=== PATIENT | female | born 1990 | race Two or more races ===

== ENCOUNTER 2017-05-12 14:21 | Emergency (ER) | payer SELFPAY ==
[2017-05-12 14:30] VITALS: TEMP 98.4; BMI 25.7
--- NOTE | 2017-05-12 15:01 | PDOC ---
History of Present Illness - General Chief Complaint: Pain Stated Complaint: PAIN Time Seen by Provider: 05/12/17 14:32 History Source: Patient Exam Limitations: No Limitations - History of Present Illness Travel History: No Initial Comments: 05/12/17 15:01 26y F hx of kidney stones presents with LLQ pain for 5 days, pain is moderate, sems to wax and wane. Pt ontes it is much less severe than her kidney stones many years ago. Pt also enodrses some vaginal spotting for a few days. Pt notes her LMP is 2 months ago, but her period is inconsistent. Pt deines any fever/ chills, nausea/vomiting, diarrhea, melena, heamturia, dysuria, vaginal discharge , frequency, back pain, cp, sob, cough. pt took motrin with mild limprovement of her pain yesterday Pt in monogmous erlationship, Past History - Past Medical History Allergies/Adverse Reactions: Allergies Allergy/AdvReac Type Severity Reaction Status Date / Time No Known Allergies Allergy Verified 05/12/17 14:30 Home Medications: Ambulatory Orders Ibuprofen [Motrin -] 600 mg PO TID #21 tablet 05/12/17 Oxycodone HCl/Acetaminophen [Percocet 5-325 mg Tablet] 1 tab PO Q6H PRN #12 tablet MDD 4 tabs 05/12/17 COPD: No - Suicide/Smoking/Psychosocial Hx Smoking History: Never smoked Review of Systems - Review of Systems Able to Perform ROS?: Yes Comments:: 05/12/17 15:05 Constitutional - no reported Fever, Chills, HEENT: no reported vision changes, sore throat Respiratory: no reported cough, sob, hemoptysis Cardiac: no reported chest pain, palpitations, light headedness, leg swelling Abd/GI: +llq abd pain no reported nausea, vomiting, blood per rectum, melena, diarrhea : +vag spotting no reported dysuria, frequency, discharge Musculskelatal - no reported back pain, joint swelling skin - no reported bruising, erythema, rash neurological: no reported headache, numbness, focal weakness, tingling, ataxia, hematologic: no reported anemia, easy bruising, easy bleeding *Physical Exam - Vital Signs Last Vital Signs Temp Pulse Resp BP Pulse Ox 98.4 F 94 H 18 109/60 99 05/12/17 14:28 05/12/17 14:28 05/12/17 14:28 05/12/17 14:28 05/12/17 14:28 - Physical Exam Comments: 05/12/17 15:05 GENERAL: The patient is awake, alert, and fully oriented, Nontoxic - in no acute distress. HEAD: Normocephalic, atraumatic. EYES: extraocular movements intact, sclera anicteric, conjunctiva clear. ENT: Normal voice, Moist mucous membranes. NECK: Normal range of motion, supple LUNGS: Breath sounds equal, clear to auscultation bilaterally. No wheezes, no rhonchi, no rales. HEART: Regular rate and rhythm, normal S1 and S2 without murmur, rub or gallop. ABDOMEN: Soft, nontender, No guarding, no rebound. No CVA tenderness EXTREMITIES: Normal range of motion, no edema. NEUROLOGICAL: No facial assymetry, Normal speech, PSYCH: Normal mood, normal affect. SKIN: Warm, Dry, normal turgor, ED Treatment Course - LABORATORY CBC & Chemistry Diagram: 05/12/17 15:12 05/12/17 15:12 Medical Decision Making - Medical Decision Making 05/12/17 15:05 26-year-old female presenting with 5 days of intermittent left lower quadrant pain, without any other symptoms besides vaginal spotting. no f/c, urinary sx, n/v, on exam pt well appearing no focal tenderness in abdomen ddx includes diverticultis, kidney stones, ovarian pain, will obtain blood work, ua, hcg will give tylenol for pain . 05/12/17 17:00 pt declines pelvic exam, requesting female awaiting US to eval for ovarian pathology and renal us to r/o hydro will sign pt out to dr. muñiz to reassess an fu wit hpatient. *DC/Admit/Observation/Transfer Diagnosis at time of Disposition: Pelvic pain - Discharge Dispostion Disposition: HOME Condition at time of disposition: Stable - Prescriptions Prescriptions: Ibuprofen [Motrin -] 600 mg PO TID #21 tablet Oxycodone HCl/Acetaminophen [Percocet 5-325 mg Tablet] 1 tab PO Q6H PRN #12 tablet MDD 4 tabs PRN Reason: Severe Pain - Referrals - Patient Instructions Printed Discharge Instructions: DI for Pelvic Pain - Post Discharge Activity
[2017-05-12] MEDS ORDERED: ACETAMINOPHEN 325 MG TABLET (FP) PO ONE (15:04)
[2017-05-12 15:54] LABS: BASO % 0.7 % (0-2.0); EOS % 1.8 % (0-4.5); HEMATOCRIT 40.4 % (32.4-45.2); HEMOGLOBIN 13.7 GM/dL (10.7-15.3); LYMPH % 26.6 % (8-40); MCH 31.1 pg (25.7-33.7); MEAN CELL VOLUME 91.6 fl (80-96); MEAN PLT VOLUME 9.1 fl (7.5-11.1); MONO % 5.7 % (3.8-10.2); NEUT % 65.2 % (42.8-82.8); PLATELET COUNT 236 K/MM3 (134-434); RBC 4.41 M/mm3 (3.60-5.2); RDW 12.8 % (11.6-15.6); WHITE BLOOD COUNT 10.7 K/mm3 (4.0-10.0)
[2017-05-12 15:57] LABS: HCG,QUALITATIVE URINE NEGATIVE; URINE APPEARANCE CLEAR; URINE BILIRUBIN NEGATIVE (NEGATIVE); URINE BLOOD NEGATIVE (NEGATIVE); URINE COLOR STRAW; URINE GLUCOSE (UA) NEGATIVE (NEGATIVE); URINE KETONE NEGATIVE (NEGATIVE); URINE LEUK ESTERASE NEGATIVE (NEGATIVE); URINE NITRITE NEGATIVE (NEGATIVE); URINE PROTEIN NEGATIVE (NEGATIVE); URINE UROBILINOGEN NEGATIVE mg/dL (0.2-1.0)
[2017-05-12] MEDS ORDERED: ACETAMINOPHEN 325 MG TABLET (FP) ONE (16:09)
[2017-05-12 16:19] LABS: ALBUMIN 3.4 g/dl (3.4-5.0); ALK PHOS 69 U/L (45-117); ANION GAP 5 (8-16); BILIRUBIN,TOTAL 0.2 mg/dL (0.2-1.0); BLOOD UREA NITROGEN 11 mg/dL (7-18); CALCIUM 8.5 mg/dL (8.5-10.1); CHLORIDE 104 mmol/L (98-107); CO2 28 mmol/L (21-32); CREATININE 0.7 mg/dL (0.55-1.02); GLUCOSE,RANDOM 82 mg/dL (74-106); POTASSIUM 4.2 mmol/L (3.5-5.1); SGOT/AST 14 U/L (15-37); SGPT/ALT 26 U/L (12-78); SODIUM 137 mmol/L (136-145); TOT PROT 7.1 g/dl (6.4-8.2)
[2017-05-12] MEDS ORDERED: SODIUM CHLORIDE 1,000 ML IV STA (17:44)
[2017-05-12] MEDS ORDERED: IBUPROFEN 600 MG TABLET (FP) PO ONE ×2 (18:11→19:25)
--- NOTE | 2017-05-12 18:14 | PDOC ---
*Physical Exam - Vital Signs Last Vital Signs Temp Pulse Resp BP Pulse Ox 98.4 F 94 H 18 109/60 99 05/12/17 14:28 05/12/17 14:28 05/12/17 14:28 05/12/17 14:28 05/12/17 14:28 <VivekfaribaakuaModesta - Last Filed: 05/12/17 21:38> - Vital Signs Last Vital Signs Temp Pulse Resp BP Pulse Ox 98.4 F 94 H 18 109/60 99 05/12/17 14:28 05/12/17 14:28 05/12/17 14:28 05/12/17 14:28 05/12/17 14:28 <Delphine Mansfield - Last Filed: 05/12/17 21:56> ED Treatment Course - LABORATORY CBC & Chemistry Diagram: 05/12/17 15:12 05/12/17 15:12 - ADDITIONAL ORDERS Additional order review: Laboratory Results 05/12/17 05/12/17 15:12 15:12 Sodium 137 Potassium 4.2 Chloride 104 Carbon Dioxide 28 Anion Gap 5 L BUN 11 Creatinine 0.7 Creat Clearance w eGFR > 60 Random Glucose 82 Calcium 8.5 Total Bilirubin 0.2 AST 14 L ALT 26 Alkaline Phosphatase 69 Total Protein 7.1 Albumin 3.4 Urine Color Straw Urine Appearance Clear Urine pH 7.0 Ur Specific [place] 1.011 Urine Protein Negative Urine Glucose (UA) Negative Urine Ketones Negative Urine Blood Negative Urine Nitrite Negative Urine Bilirubin Negative Urine Urobilinogen Negative Ur Leukocyte Esterase Negative Urine HCG, Qual Negative 05/12/17 15:12 RBC 4.41 MCV 91.6 MCHC 34.0 RDW 12.8 MPV 9.1 Neutrophils % 65.2 Lymphocytes % 26.6 Monocytes % 5.7 Eosinophils % 1.8 Basophils % 0.7 - Medications Given in the ED: ED Medications Discontinued Medications Generic Name Dose Route Start Last Admin Trade Name Freq PRN Reason Stop Dose Admin Acetaminophen 650 mg 05/12/17 15:04 05/12/17 16:00 Tylenol - PO 05/12/17 15:05 650 mg ONCE ONE Administration Sodium Chloride 1,000 mls @ 1,000 mls/hr 05/12/17 17:44 05/12/17 19:55 Normal Saline - IV 05/12/17 18:43 Not Given ASDIR STA Ibuprofen 600 mg 05/12/17 18:11 05/12/17 19:26 Motrin - PO 05/12/17 18:12 600 mg ONCE ONE Administration <Modesta De La O - Last Filed: 05/12/17 21:38> - LABORATORY CBC & Chemistry Diagram: 05/12/17 15:12 05/12/17 15:12 - ADDITIONAL ORDERS Additional order review: Laboratory Results 05/12/17 05/12/17 15:12 15:12 Sodium 137 Potassium 4.2 Chloride 104 Carbon Dioxide 28 Anion Gap 5 L BUN 11 Creatinine 0.7 Creat Clearance w eGFR > 60 Random Glucose 82 Calcium 8.5 Total Bilirubin 0.2 AST 14 L ALT 26 Alkaline Phosphatase 69 Total Protein 7.1 Albumin 3.4 Urine Color Straw Urine Appearance Clear Urine pH 7.0 Ur Specific [place] 1.011 Urine Protein Negative Urine Glucose (UA) Negative Urine Ketones Negative Urine Blood Negative Urine Nitrite Negative Urine Bilirubin Negative Urine Urobilinogen Negative Ur Leukocyte Esterase Negative Urine HCG, Qual Negative 05/12/17 15:12 RBC 4.41 MCV 91.6 MCHC 34.0 RDW 12.8 MPV 9.1 Neutrophils % 65.2 Lymphocytes % 26.6 Monocytes % 5.7 Eosinophils % 1.8 Basophils % 0.7 - RADIOLOGY Radiology Studies Ordered: Category Date Time Status KIDNEY / RENAL US [US] Stat Ultrasound 05/12/17 17:44 Ordered - Medications Given in the ED: ED Medications Discontinued Medications Generic Name Dose Route Start Last Admin Trade Name Freq PRN Reason Stop Dose Admin Acetaminophen 650 mg 05/12/17 15:04 05/12/17 16:00 Tylenol - PO 05/12/17 15:05 650 mg ONCE ONE Administration <Delphine Mansfield - Last Filed: 05/12/17 21:56> Medical Decision Making - Medical Decision Making 05/12/17 21:38 EXAM: COMPLETE RENAL ULTRASOUND FINDINGS: KIDNEYS: There is normal corticomedullary differentiation bilaterally. The right kidney measures 10.2 x 3.5 x 4.9 cm and the left kidney measures 10.9 x 5.6 x 4.7 cm. There is no right kidney hydronephrosis or nephrolithiasis. There is mild/moderate left hydronephrosis. No shadowing calculi. Solid renal mass: No BLADDER: Not evaluated. Round hyperdense mass right lobe liver a vascular measure as 2.6 x 3.0 x 2.9 cm , this is an indeterminate finding. IMPRESSION: Mild/moderate left hydronephrosis. No shadowing renal calculi. Hyperechoic mass in the liver incompletely characterized, possible hemangioma which may be further evaluated with triple phase contrast enhanced CT. Read by: María Elena Goodwin MD EXAM: PELVIS ULTRASOUND AND OVARIAN DUPLEX COMPLETE WITH TRANSABDOMINAL TECHNIQUE FINDINGS: UTERUS: The uterus measures 8.3 x 3.8 x 5.2 cm. No uterine mass is seen. ENDOMETRIUM: The endometrial echocomplex appears normal, measuring 0.63 cm. OVARIES: Both ovaries are identified. The right ovary measures 3.1 x 1.8 x 2.9 cm and the left ovary measures 2.7 x 1.3 x 2.0 cm. No solid ovarian mass is seen. No significant cyst, several tiny follicles. Arterial and venous duplex doppler flow is documented to both ovaries. PELVIS: There is small volume anechoic free fluid noted in the cul de sac. No adnexal or pelvic mass is seen. IMPRESSION: No sonographic findings to suggest ovarian torsion. Endometrial thickness is within normal limits for a premenopausal patient. Read by: María Elena Goodwin MD <Modesta De La O - Last Filed: 05/12/17 21:38> - Medical Decision Making 05/12/17 18:12 Pt endorsed to me by Dr. Kirk at 5 pm shift change. She requested female practitioner for pelvic exam. +L adnexal tenderness. Suspect ovarian cyst. Await ultrasound results. 05/12/17 21:49 Discussion with patient at bedside. Mild hydro on L but no stones. On pelvic exam she had no external changes, but was noted to have R adnexal pain (not left which is where she complains of pain). She had mild physiologic discharge but no cervical changes, no CMT, no purulent discharge. She states she has not had any recent new partners. She does not wish to be treated with empiric abx at present. She agrees to urine test for GC/Chlam. <Delphine Mansfield - Last Filed: 05/12/17 21:56> *DC/Admit/Observation/Transfer - Attestations Scribe Attestion: 05/12/17 21:40 Documentation prepared by Modesta De La O, acting as registered medical assistant for Delphine Mansfield MD. <Modesta De La O - Last Filed: 05/12/17 21:38> - Discharge Dispostion Admit: No <Delphine Mansfield - Last Filed: 05/12/17 21:56> Diagnosis at time of Disposition: Pelvic pain - Discharge Dispostion Disposition: HOME Condition at time of disposition: Stable - Prescriptions Prescriptions: Ibuprofen [Motrin -] 600 mg PO TID #21 tablet Oxycodone HCl/Acetaminophen [Percocet 5-325 mg Tablet] 1 tab PO Q6H PRN #12 tablet MDD 4 tabs PRN Reason: Severe Pain - Patient Instructions Printed Discharge Instructions: DI for Pelvic Pain
[2017-05-12 22:19] VITALS: BP 127/74; PULSE 69
== END 2017-05-12 22:00 | disposition home or self-care (01) ==
LOC: JER 14:21
DX: R10.2 Pelvic and perineal pain (principal)
CPT/HCPCS: 36415; 76775-TC; 76856-TC; 80053; 81003; 84703; 85025; 99283-25

== ENCOUNTER 2017-05-27 00:37 | Inpatient (IN) | payer OTHER ==
--- NOTE | 2017-05-27 01:21 | PDOC ---
History of Present Illness - General Chief Complaint: Pain, Acute Stated Complaint: PAIN, FEVER Time Seen by Provider: 05/27/17 00:57 History Source: Patient - History of Present Illness Initial Comments: 05/27/17 01:33 26 y.o. female with a PMH of nephrolithiasis (remote) presents to our ED today c /o 2 day of subjective fever, NBNB emesis, and L flank and abdominal pain. Patient states the pain sharp, constant, 10/10 and radiates from her L flank to her LLQ. Patient denies any associated diarrhea/constipation, dysuria/hematuria , vaginal bleed. NKDA Surgical: denies Social: denies nicotine, denies alcohol, denies recreational drugs Past History - Past Medical History Allergies/Adverse Reactions: Allergies Allergy/AdvReac Type Severity Reaction Status Date / Time No Known Allergies Allergy Verified 05/27/17 01:07 Home Medications: Ambulatory Orders Ibuprofen [Motrin -] 600 mg PO TID #21 tablet 05/12/17 Oxycodone HCl/Acetaminophen [Percocet 5-325 mg Tablet] 1 tab PO Q6H PRN #12 tablet MDD 4 tabs 05/12/17 COPD: No - Suicide/Smoking/Psychosocial Hx Smoking History: Never smoked Have you smoked in the past 12 months: No Information on smoking cessation initiated: No Hx Alcohol Use: No Drug/Substance Use Hx: No Review of Systems - Review of Systems Constitutional: Yes: Fever, Loss of Appetite. No: Chills HEENTM: No: Blurred Vision, Double Vision Respiratory: No: Shortness of Breath, Stridor, Wheezing, Hemoptysis Cardiac (ROS): No: Chest Pain, Lightheadedness, Palpitations, Syncope ABD/GI: No: Constipated, Diarrhea, Nausea, Vomiting : No: Burning, Dysuria *Physical Exam - Vital Signs Last Vital Signs Temp Pulse Resp BP Pulse Ox 98.8 F 67 16 96/58 98 05/27/17 01:05 05/27/17 01:05 05/27/17 01:05 05/27/17 01:05 05/27/17 01:05 - Physical Exam General Appearance: Yes: Nourished, Obese HEENT: positive: EOMI, DAVIS. negative: Pharyngeal Erythema, Tonsillar Exudate, Tonsillar Erythema Neck: positive: Trachea midline, Supple Respiratory/Chest: positive: Lungs Clear. negative: Crackles, Rales, Rhonchi, Stridor, Wheezing Cardiovascular: positive: S1, S2 Gastrointestinal/Abdominal: positive: Normal Bowel Sounds, Soft, Tenderness ( LLQ tenderness) Musculoskeletal: positive: CVA Tenderness (L). negative: CVA Tenderness (R) Extremity: positive: Normal Capillary Refill, Normal Inspection Integumentary: positive: Normal Color, Dry, Warm ED Treatment Course - LABORATORY CBC & Chemistry Diagram: 06/01/17 06:00 06/01/17 06:00 Medical Decision Making - Medical Decision Making 05/27/17 01:57 26 y.o. female presents with L flank pain that radiates to LLQ. Of note patient was evaluated at our facility on 05/14 at which time UA negative, no CMT tenderness on pelvic exam. DDx includes nephrolithiasis vs. UTI vs. adenexal pathology (less likely). Spiral CT, CBC, CMP, IV NS, pain control with Morphine. 05/27/17 04:16 WBC 44, UA significant for leukocyte esterase (+), 3421 WBC --> suspect complicated UTI/pyelonephritis. Will start patient on Pip/Tazo, awaiting CT results. Lactate pending. Likely disposition is admission. On repeat exam, patient notes she has a h/o hospitalization at [facility] for complicated UTI. 05/27/17 04:24 Case d/w Dr. Quispe - will admit to inpatient medicine service. POC discussed with patient. Will continue to monitor while in ED. 05/27/17 06:47 Lactic Acid 2.8 --> 1 L IV NS w/repeat Lactic Acid @ 0900. *DC/Admit/Observation/Transfer Diagnosis at time of Disposition: complicated uti - Discharge Dispostion Admit: Yes - Referrals - Patient Instructions - Post Discharge Activity
[2017-05-27] MEDS ORDERED: SODIUM CHLORIDE 0.9% 500 ML INFUS.BAG IV ONE ×3 (01:27→06:44)
--- NOTE | 2017-05-27 01:29 | PDOC ---
Attending Attestation - Resident Resident Name: Jenna Looney - ED Attending Attestation I have performed the following: I have examined & evaluated the patient, The case was reviewed & discussed with the resident, I agree w/resident's findings & plan - HPI HPI: 05/27/17 04:29 Pt comes with left flank pain and fever and chills. She states that she had sepsis secondary to a kidney infection 10 yrs ago at [facility]. SHe mentions that it was a difficult infection to treat. Pt has decreased appetite x 2 days and she is dehydrated. Pt feels febrile. Pt has no abd pain. Pt has a hx of kidney stones. SHe states that she is sexually active and that though she has no vaginal discharge, she can have an STD. We will send off a culture. CT spiral of abd pelvis is done and results are pending. - Physicial Exam PE: 05/27/17 04:39 Agree with resident exam. Pt has left flank pain. - Medical Decision Making 05/27/17 04:38 Referring Physician: ADAMARIS CRUZ Patient Name: BEN BLAKE THIS IS A PRELIMINARY REPORT FROM [facility] DATE OF SERVICE: 2017-05-27 03:54:15 IMAGES: [id number] EXAM: CT abdomen and pelvis without contrast HISTORY: Left flank pain COMPARISON: None. FINDINGS: Lung bases are clear. The visualized cardiac chambers are normal size and configuration. There is mild left hydronephrosis and perinephric inflammation secondary to a 6 x 5 mid to distal left ureteral stone. No additional stones identified. Normal unenhanced liver, gallbladder, pancreas, spleen, adrenal glands and right kidney. The stomach and abdominal small and large bowel are normal. There is no aortic aneurysm. There is no significant retroperitoneal lymphadenopathy. The pelvic small and large bowel are normal. The appendix is normal. The uterus and adnexal structures are normal. Urinary bladder is unremarkable. There is no pelvic free fluid. No discrete pelvic lymphadenopathy is identified. IMPRESSION: Mild to left hydronephrosis and perinephric inflammation secondary to a 6 x 5 mid to distal left ureteral stone. THIS DOCUMENT HAS BEEN ELECTRONICALLY SIGNED 05/27/17 21:00 Pt admitted for large obstructing stone.
[2017-05-27 03:15] LABS: ALBUMIN 3.3 g/dl (3.4-5.0); ALK PHOS 82 U/L (45-117); ANION GAP 12 (8-16); BILIRUBIN,TOTAL 0.5 mg/dL (0.2-1.0); BLOOD UREA NITROGEN 15 mg/dL (7-18); CALCIUM 8.6 mg/dL (8.5-10.1); CHLORIDE 99 mmol/L (98-107); CO2 24 mmol/L (21-32); CREATININE 1.4 mg/dL (0.55-1.02); GLUCOSE,RANDOM 127 mg/dL (74-106); POTASSIUM 3.9 mmol/L (3.5-5.1); SGOT/AST 22 U/L (15-37); SGPT/ALT 31 U/L (12-78); SODIUM 135 mmol/L (136-145); TOT PROT 7.1 g/dl (6.4-8.2)
[2017-05-27 03:26] LABS: URINE APPEARANCE TURBID; URINE BILIRUBIN NEGATIVE (NEGATIVE); URINE BLOOD 2+ (NEGATIVE); URINE COLOR YELLOW; URINE GLUCOSE (UA) NEGATIVE (NEGATIVE); URINE KETONE NEGATIVE (NEGATIVE); URINE NITRITE NEGATIVE (NEGATIVE); URINE UROBILINOGEN NEGATIVE mg/dL (0.2-1.0)
[2017-05-27 03:36] LABS: URINE LEUK ESTERASE 3+ (NEGATIVE); URINE PROTEIN 2+ (NEGATIVE)
[2017-05-27 03:40] LABS: EPI CELLS FEW /HPF (FEW); URINE MUCUS RARE; YEAST MANY
[2017-05-27 03:48] LABS: HEMATOCRIT 38.5 % (32.4-45.2); HEMOGLOBIN 12.8 GM/dL (10.7-15.3); MCH 30.7 pg (25.7-33.7); MCHC 33.2 g/dl (32.0-36.0); MEAN CELL VOLUME 92.4 fl (80-96); MEAN PLT VOLUME 9.8 fl (7.5-11.1); PLATELET COUNT 233 K/MM3 (134-434); RBC 4.17 M/mm3 (3.60-5.2); RDW 13.4 % (11.6-15.6)
[2017-05-27 04:01] LABS: WHITE BLOOD COUNT 44.5 K/mm3 (4.0-10.0)
[2017-05-27 04:04] LABS: HCG,QUALITATIVE URINE NEGATIVE
[2017-05-27] MEDS ORDERED: PIPERACIL/TAZOB 3.375 GM 3.375 GM/50 ML PREMIX IVPB ONE (04:04)
[2017-05-27] MEDS ORDERED: morphine CARPU-JECT 4 MG/1 ML DISP.SYRIN IVPUSH ONE (04:10)
[2017-05-27] MEDS ORDERED: ACETAMINOPHEN 1000 MG/100 ML VIAL (NON FORMULARY) IVPB ONE (04:20)
--- NOTE | 2017-05-27 04:48 | HP ---
CHIEF COMPLAINT: PCP: HISTORY OF PRESENT ILLNESS: ER course was notable for: (1) (2) (3) Recent Travel: PAST MEDICAL HISTORY: PAST SURGICAL HISTORY: Social History: Smoking: Alcohol: Drugs: Family History: Allergies No Known Allergies Allergy (Verified 05/27/17 01:07) HOME MEDICATIONS: Home Medications Medication Instructions Recorded Ibuprofen [Motrin -] 600 mg PO TID #21 tablet 05/12/17 Oxycodone HCl/Acetaminophen 1 tab PO Q6H PRN #12 tablet MDD 4 05/12/17 [Percocet 5-325 mg Tablet] tabs REVIEW OF SYSTEMS CONSTITUTIONAL: Absent: fever, chills, diaphoresis, generalized weakness, malaise, loss of appetite, weight change HEENT: Absent: rhinorrhea, nasal congestion, throat pain, throat swelling, difficulty swallowing, mouth swelling, ear pain, eye pain, visual changes CARDIOVASCULAR: Absent: chest pain, syncope, palpitations, irregular heart rate, lightheadedness , peripheral edema RESPIRATORY: Absent: cough, shortness of breath, dyspnea with exertion, orthopnea, wheezing, stridor, hemoptysis GASTROINTESTINAL: Absent: abdominal pain, abdominal distension, nausea, vomiting, diarrhea, constipation, melena, hematochezia GENITOURINARY: Absent: dysuria, frequency, urgency, hesitancy, hematuria, flank pain, genital pain MUSCULOSKELETAL: Absent: myalgia, arthralgia, joint swelling, back pain, neck pain SKIN: Absent: rash, itching, pallor HEMATOLOGIC/IMMUNOLOGIC: Absent: easy bleeding, easy bruising, lymphadenopathy, frequent infections ENDOCRINE: Absent: unexplained weight gain, unexplained weight loss, heat intolerance, cold intolerance NEUROLOGIC: Absent: headache, focal weakness or paresthesias, dizziness, unsteady gait, seizure, mental status changes, bladder or bowel incontinence PSYCHIATRIC: Absent: anxiety, depression, suicidal or homicidal ideation, hallucinations. PHYSICAL EXAMINATION Vital Signs - 24 hr 05/27/17 01:05 Temperature 98.8 F Pulse Rate 67 Respiratory 16 Rate Blood Pressure 96/58 O2 Sat by Pulse 98 Oximetry (%) GENERAL: Awake, alert, and fully oriented, in no acute distress. HEAD: Normal with no signs of trauma. EYES: Pupils equal, round and reactive to light, extraocular movements intact, sclera anicteric, conjunctiva clear. No lid lag. EARS, NOSE, THROAT: Ears normal, nares patent, oropharynx clear without exudates. Moist mucous membranes. NECK: Normal range of motion, supple without lymphadenopathy, JVD, or masses. LUNGS: Breath sounds equal, clear to auscultation bilaterally. No wheezes, and no crackles. No accessory muscle use. HEART: Regular rate and rhythm, normal S1 and S2 without murmur, rub or gallop. ABDOMEN: Soft, nontender, not distended, normoactive bowel sounds, no guarding, no rebound, no masses. No hepatomegaly or splenomegaly. MUSCULOSKELETAL: Normal range of motion at all joints. No bony deformities or tenderness. No CVA tenderness. UPPER EXTREMITIES: 2+ pulses, warm, well-perfused. No cyanosis. No clubbing. No peripheral edema. LOWER EXTREMITIES: 2+ pulses, warm, well-perfused. No calf tenderness. No peripheral edema. NEUROLOGICAL: Cranial nerves II-XII intact. Normal speech. Normal gait. PSYCHIATRIC: Cooperative. Good eye contact. Appropriate mood and affect. SKIN: Warm, dry, normal turgor, no rashes or lesions noted, normal capillary refill. Laboratory Results - last 24 hr 05/27/17 05/27/17 05/27/17 01:39 01:39 01:39 WBC 44.5 H* D RBC 4.17 Hgb 12.8 Hct 38.5 MCV 92.4 MCH 30.7 MCHC 33.2 RDW 13.4 Plt Count 233 MPV 9.8 Neutrophils % No Result Required. Lymphocytes % No Result Required. Sodium 135 L Potassium 3.9 Chloride 99 Carbon Dioxide 24 Anion Gap 12 BUN 15 Creatinine 1.4 H Creat Clearance w eGFR 45.82 Random Glucose 127 H Calcium 8.6 Total Bilirubin 0.5 D AST 22 ALT 31 Alkaline Phosphatase 82 Total Protein 7.1 Albumin 3.3 L Serum , Qual Negative Urine Color Urine Appearance Urine pH Ur Specific [place] Urine Protein Urine Glucose (UA) Urine Ketones Urine Blood Urine Nitrite Urine Bilirubin Urine Urobilinogen Ur Leukocyte Esterase Urine WBC (Auto) Urine RBC (Auto) Ur Epithelial Cells Urine Mucus Urine Yeast Urine HCG, Qual 05/27/17 03:09 WBC RBC Hgb Hct MCV MCH MCHC RDW Plt Count MPV Neutrophils % Lymphocytes % Sodium Potassium Chloride Carbon Dioxide Anion Gap BUN Creatinine Creat Clearance w eGFR Random Glucose Calcium Total Bilirubin AST ALT Alkaline Phosphatase Total Protein Albumin Serum , Qual Urine Color Yellow Urine Appearance Turbid Urine pH 5.0 D Ur Specific [place] 1.025 Urine Protein 2+ H Urine Glucose (UA) Negative Urine Ketones Negative Urine Blood 2+ H Urine Nitrite Negative Urine Bilirubin Negative Urine Urobilinogen Negative Ur Leukocyte Esterase 3+ H Urine WBC (Auto) 3421 Urine RBC (Auto) 115 Ur Epithelial Cells Few Urine Mucus Rare Urine Yeast Many Urine HCG, Qual Negative ASSESSMENT/PLAN: Hospitalist Screening - Colonoscopy Questionnaire Colonoscopy Questionnaire: Colonoscopy Questionnaire
[2017-05-27] MEDS ORDERED: PIPERACILLIN/TAZOB 3.375 GM 3.375 GM/50 ML BAG IVPB ONE (04:54)
[2017-05-27] MEDS ORDERED: ACETAMINOPHEN INJECTION 100 ML IVPB ONE (04:54)
[2017-05-27] MEDS ORDERED: morphine SULFATE 4 MG/ML VIAL ONE (04:54)
[2017-05-27] MEDS: PIPERACILLIN/TAZOB 3.375 GM/50 ML PRE-DOCKED IVPB ONE ×2 (05:32→05:36)
--- NOTE | 2017-05-27 05:32 | PN ---
Teaching Attending Note Name of Resident: Kaveh Smart ATTENDING PHYSICIAN STATEMENT I saw and evaluated the patient. Chart, data, imaging reviewed. I reviewed the resident's note and discussed the case with the resident. I agree with the resident's findings and plan as documented. SUBJECTIVE: 26yo [place] woman with Hx of nephrolithisis, with episode of sepsis 2/2 pyelonephritis reportedly treated 3 years ago at [facility]. Now c/o days of dysuria, left flank pain, nausea and vomiting. Pain is severe, sharp in nature and radiates from left flank to groin. Patient with grossly +UA, treated with Zosyn in ER. OBJECTIVE: Last Vital Signs Temp Pulse Resp BP Pulse Ox 98.7 F 70 18 106/78 99 05/27/17 06:07 05/27/17 06:07 05/27/17 06:07 05/27/17 06:07 05/27/17 06:07 general- appears uncomfortable, aaox3, no respiratory distress HEENT- at, no scleral pallor Neck -supple CV- s1+s2+ RRR CHest- cta b/l, left sided CVA tenderness ABdomen- soft, nt, no masses appreciated Skin- no rashes appreciated Abnormal Lab Results 05/27/17 05/27/17 05/27/17 01:39 01:39 03:09 WBC 44.5 H* D Lymphocytes % (Manual) 5.0 L Monocytes % (Manual) 3 L Sodium 135 L Creatinine 1.4 H Random Glucose 127 H Lactic Acid Albumin 3.3 L Urine Protein 2+ H Urine Blood 2+ H Ur Leukocyte Esterase 3+ H 05/27/17 05:23 WBC Lymphocytes % (Manual) Monocytes % (Manual) Sodium Creatinine Random Glucose Lactic Acid 2.8 H* Albumin Urine Protein Urine Blood Ur Leukocyte Esterase Night hawk read- CT of abdomen /pelvis- mild left sided hydronephrosis, perinephric inflammation , 6 x5 ... mm? stone in mid to distal left ureter ASSESSMENT AND PLAN: #Complicated UTI- Left sided pyelonephritis with mild lactic acidosis and high leukocytosis, complicated by left ureter stone. Patient otherwise hemodynamically stable, not tachycardic or febrile. S/p Zosyn in ER. -blood cultures x2 -urine culture -urology evaluation to stone removal -ID consult -Rocephin 2g IV q24hrs -morphine 2mg IV q4hrs PRN -f/u official abdomen CT read -zofran PRN for nausea/vomiting #ERIN- likely postrenal in nature 2/2 to renal stone -urine lytes -urine cr -IV fluid hydration -avoid nephrotoxic medications -i/o -daily weights Heparin for dvt ppx
[2017-05-27] MEDS ORDERED: morphine CARPU-JECT 4 MG/1 ML DISP.SYRIN IVPUSH PRN (06:46)
[2017-05-27] MEDS ORDERED: ONDANSETRON 4 MG/2 ML VIAL IVPUSH ONE (06:49)
[2017-05-27] MEDS ORDERED: ONDANSETRON 4 MG TABLET PO PRN ×2 (06:57→19:12)
--- NOTE | 2017-05-27 07:03 | HP ---
CHIEF COMPLAINT:left flank pain, fever , PCP: HISTORY OF PRESENT ILLNESS: 26 year old female with pmh of kidney stone and multiple urinary infection presented with one day history of fever, chills, N/V and sever left flank pain. The left flank pain 9/10 local , radiating to the left groin.she reports sever vaginal pain when she pass urine , and maroon color of urine. she vomited 6 times yesterday and 2 times today yellow liquids with some blood in it. she has cholic pain once a month in the last 3 years. she mention history of bacteremia due urinary infection and was treated with IV antibiotics . pt reports she was her at the hospital last week for ovary pain (per pt )and work up come back normal and dc home pt reports headache , pulsating , 9/10 , frontal, associated with the flank pain. she denies any chest pain , sob, but reports hear racing, she Davis any diarrhea or constipation , no joint pain or leg swelling. her son has common cold last week and no recent travel. pt is sexually active but denies any vaginal discharges or recent STDs. ER course was notable for: (1)CBC, CMP , blood cx , urine cx (2)LA 2.1 (3)zosyn , morphine, zofran Recent Travel:denies PAST MEDICAL HISTORY: nephrolithisis, bacteremia PAST SURGICAL HISTORY: Social History: Smoking:hooka 1-2 times a week Alcohol:socially Drugs: denies Family History: kidney stone in her father side. mother with HTN. Allergies No Known Allergies Allergy (Verified 05/27/17 01:07) HOME MEDICATIONS: Home Medications Medication Instructions Recorded Ibuprofen [Motrin -] 600 mg PO TID #21 tablet 05/12/17 Oxycodone HCl/Acetaminophen 1 tab PO Q6H PRN #12 tablet MDD 4 05/12/17 [Percocet 5-325 mg Tablet] tabs REVIEW OF SYSTEMS CONSTITUTIONAL: Absent: fever, chills, diaphoresis, generalized weakness, malaise, loss of appetite, weight change HEENT: Absent: rhinorrhea, nasal congestion, throat pain, throat swelling, difficulty swallowing, mouth swelling, ear pain, eye pain, visual changes CARDIOVASCULAR: Absent: chest pain, syncope, palpitations, irregular heart rate, lightheadedness , peripheral edema RESPIRATORY: Absent: cough, shortness of breath, dyspnea with exertion, orthopnea, wheezing, stridor, hemoptysis GASTROINTESTINAL: Absent: abdominal pain, abdominal distension, nausea, vomiting, diarrhea, constipation, melena, hematochezia GENITOURINARY: Absent: dysuria, frequency, urgency, hesitancy, hematuria, flank pain, genital pain MUSCULOSKELETAL: Absent: myalgia, arthralgia, joint swelling, back pain, neck pain SKIN: Absent: rash, itching, pallor HEMATOLOGIC/IMMUNOLOGIC: Absent: easy bleeding, easy bruising, lymphadenopathy, frequent infections ENDOCRINE: Absent: unexplained weight gain, unexplained weight loss, heat intolerance, cold intolerance NEUROLOGIC: Absent: headache, focal weakness or paresthesias, dizziness, unsteady gait, seizure, mental status changes, bladder or bowel incontinence PSYCHIATRIC: Absent: anxiety, depression, suicidal or homicidal ideation, hallucinations. PHYSICAL EXAMINATION Vital Signs - 24 hr 05/27/17 05/27/17 01:05 06:07 Temperature 98.8 F 98.7 F Pulse Rate 67 Pulse Rate [ 70 Apical] Respiratory 16 18 Rate Blood Pressure 96/58 Blood Pressure 106/78 [Left Arm] O2 Sat by Pulse 98 99 Oximetry (%) GENERAL: Awake, alert, and fully oriented, in mild distress. HEAD: NC/At . EYES: EOMI, PEERLA, sclera anicteric, conjunctiva clear. EARS, NOSE, THROAT: Ears normal, nares patent, oropharynx clear without exudates. Moist mucous membranes. NECK: Normal range of motion, supple without lymphadenopathy LUNGS: Breath sounds equal, clear to auscultation bilaterally. No wheezes, and no crackles. No accessory muscle use. HEART: RRR,, normal S1 and S2 without murmur, rub or gallop. ABDOMEN: Soft, LLQ tenderness, not distended, normoactive bowel sounds, no guarding, , left CVA tenderness, malone positive MUSCULOSKELETAL: Normal range of motion at all joints. No bony deformities or tenderness. UPPER EXTREMITIES: 2+ pulses, warm, well-perfused. No cyanosis. No clubbing. No peripheral edema. LOWER EXTREMITIES: 2+ pulses, warm, well-perfused. No calf tenderness. No peripheral edema. NEUROLOGICAL: no focal deficit , Normal speech. Normal gait. PSYCHIATRIC: Cooperative. Good eye contact. Appropriate mood and affect. SKIN: Warm, dry, normal turgor, Laboratory Results - last 24 hr 05/27/17 05/27/17 05/27/17 01:39 01:39 01:39 WBC 44.5 H* D RBC 4.17 Hgb 12.8 Hct 38.5 MCV 92.4 MCH 30.7 MCHC 33.2 RDW 13.4 Plt Count 233 MPV 9.8 Total Counted 100 Neutrophils % No Result Required. Neutrophils % (Manual) 64.0 Band Neutrophils % 28.0 Lymphocytes % No Result Required. Lymphocytes % (Manual) 5.0 L Monocytes % (Manual) 3 L Sodium 135 L Potassium 3.9 Chloride 99 Carbon Dioxide 24 Anion Gap 12 BUN 15 Creatinine 1.4 H Creat Clearance w eGFR 45.82 Random Glucose 127 H Lactic Acid Calcium 8.6 Total Bilirubin 0.5 D AST 22 ALT 31 Alkaline Phosphatase 82 Total Protein 7.1 Albumin 3.3 L Serum , Qual Negative Urine Color Urine Appearance Urine pH Ur Specific [place] Urine Protein Urine Glucose (UA) Urine Ketones Urine Blood Urine Nitrite Urine Bilirubin Urine Urobilinogen Ur Leukocyte Esterase Urine WBC (Auto) Urine RBC (Auto) Ur Epithelial Cells Urine Mucus Urine Yeast Urine HCG, Qual 05/27/17 05/27/17 03:09 05:23 WBC RBC Hgb Hct MCV MCH MCHC RDW Plt Count MPV Total Counted Neutrophils % Neutrophils % (Manual) Band Neutrophils % Lymphocytes % Lymphocytes % (Manual) Monocytes % (Manual) Sodium Potassium Chloride Carbon Dioxide Anion Gap BUN Creatinine Creat Clearance w eGFR Random Glucose Lactic Acid 2.8 H* Calcium Total Bilirubin AST ALT Alkaline Phosphatase Total Protein Albumin Serum , Qual Urine Color Yellow Urine Appearance Turbid Urine pH 5.0 D Ur Specific [place] 1.025 Urine Protein 2+ H Urine Glucose (UA) Negative Urine Ketones Negative Urine Blood 2+ H Urine Nitrite Negative Urine Bilirubin Negative Urine Urobilinogen Negative Ur Leukocyte Esterase 3+ H Urine WBC (Auto) 3421 Urine RBC (Auto) 115 Ur Epithelial Cells Few Urine Mucus Rare Urine Yeast Many Urine HCG, Qual Negative CBC, BMP 05/27/17 01:39 05/27/17 01:39 ASSESSMENT/PLAN: 26 year old female with pmh of nephrolithiais and multiple urinary infection presented with one day history of fever, chills, N/V and sever left flank pain was admitted for peylonephritis due to uretral stone. # pyelonehritis due to left urethral nephrolithisis * one day of fever, N/V, left flank pain radiating to the left groin * wbc 44.5, LA 2.8 , with source of infection but no tachycardia no tachypnia no hypotension. * family h/o kidney stone * CT with urethral stone 6 mm with left hydronephrosis f/u official read * Blood cx x 2 and urine cx , genital cx * abx zosyn in ED continue with ceftriaxone 2 gm q 24 hour , ID consult * IV fluids 150 CC/hr * zofran 4 mg po q8hr for N/V * pain meds Morphine 2 gm iv q 4hr for pain > 4 * Urology consult Dr. Phelps for nephrolethiasis possible letherotripsy vs stone removal * trend LA , repeat CBC, bmp , monitor vitals , * NPO for now for possible procedure * INR * F/U klamedia N.gonnorrea result # ERIN likely due to post renal obstruction * BUN/CR 15/1.4 monitor * IV fluids * avoid nephrotoxic agents # FEN * 150 CC /hr NS * E: monitor * N: NPO for now # Proph * dvts: low risk , early ambulation ,SCDS both legs * GI: no need for now # Dispo * admit to med surg . Visit type - Emergency Visit Emergency Visit: Yes ED Registration Date: 05/27/17 Care time: The patient presented to the Emergency Department on the above date and was hospitalized for further evaluation of their emergent condition. - New Patient This patient is new to me today: Yes Date on this admission: 05/27/17 - Critical Care Critical Care patient: No Hospitalist Screening - Colonoscopy Questionnaire Colonoscopy Questionnaire: Colonoscopy Questionnaire - Patient: 50 - 75 years old and never had a screening colonoscopy: No History of colon or rectal polyps, or CA: No History of IBD, Crohn's disease or UC: No History of abdominal radiation therapy as a child: No - Relative: 1 with colon or rectal CA, or polyps at age 60 or younger: No Colon or rectal CA diagnosed at age 45 or younger: No Multiple relatives with colon or rectal CA: No - Outcome: Screening Result: Negative Screen
[2017-05-27] MEDS ORDERED: SODIUM CHLORIDE 1,000 ML IV SCH (07:15)
--- NOTE | 2017-05-27 07:52 | PN ---
Progress Note (short form) - Note Progress Note: Subjective:pain in L flank. has no N//V , feels weak and tired. Objective: Vital Signs: Last Vital Signs Temp Pulse Resp BP Pulse Ox 98.7 F 70 18 106/78 99 05/27/17 06:07 05/27/17 06:07 05/27/17 06:07 05/27/17 06:07 05/27/17 06:07 Laboratory Results - last 24 hr 05/27/17 05/27/17 05/27/17 01:39 01:39 01:39 WBC 44.5 H* D RBC 4.17 Hgb 12.8 Hct 38.5 MCV 92.4 MCH 30.7 MCHC 33.2 RDW 13.4 Plt Count 233 MPV 9.8 Total Counted 100 Neutrophils % No Result Required. Neutrophils % (Manual) 64.0 Band Neutrophils % 28.0 Lymphocytes % No Result Required. Lymphocytes % (Manual) 5.0 L Monocytes % (Manual) 3 L Sodium 135 L Potassium 3.9 Chloride 99 Carbon Dioxide 24 Anion Gap 12 BUN 15 Creatinine 1.4 H Creat Clearance w eGFR 45.82 Random Glucose 127 H Lactic Acid Calcium 8.6 Total Bilirubin 0.5 D AST 22 ALT 31 Alkaline Phosphatase 82 Total Protein 7.1 Albumin 3.3 L Serum , Qual Negative Urine Color Urine Appearance Urine pH Ur Specific [place] Urine Protein Urine Glucose (UA) Urine Ketones Urine Blood Urine Nitrite Urine Bilirubin Urine Urobilinogen Ur Leukocyte Esterase Urine WBC (Auto) Urine RBC (Auto) Ur Epithelial Cells Urine Mucus Urine Yeast Urine HCG, Qual 05/27/17 05/27/17 03:09 05:23 WBC RBC Hgb Hct MCV MCH MCHC RDW Plt Count MPV Total Counted Neutrophils % Neutrophils % (Manual) Band Neutrophils % Lymphocytes % Lymphocytes % (Manual) Monocytes % (Manual) Sodium Potassium Chloride Carbon Dioxide Anion Gap BUN Creatinine Creat Clearance w eGFR Random Glucose Lactic Acid 2.8 H* Calcium Total Bilirubin AST ALT Alkaline Phosphatase Total Protein Albumin Serum , Qual Urine Color Yellow Urine Appearance Turbid Urine pH 5.0 D Ur Specific [place] 1.025 Urine Protein 2+ H Urine Glucose (UA) Negative Urine Ketones Negative Urine Blood 2+ H Urine Nitrite Negative Urine Bilirubin Negative Urine Urobilinogen Negative Ur Leukocyte Esterase 3+ H Urine WBC (Auto) 3421 Urine RBC (Auto) 115 Ur Epithelial Cells Few Urine Mucus Rare Urine Yeast Many Urine HCG, Qual Negative Physical Exam: NAd, AAox3. HEENT: dry MM, no LAP in neck , no facial droop, EOMI. CV: RRR, no MRG ,no JVD Lungs: CTAB Abd: soft, TTP in LUQ and LLQ, no rebound tenderness or guarding. L CVA tenderness Ext: no edema or erythema . Imaging: CT image is not available yet. imaging guard immigration repeort reviewed, 5 mm obstructing stone in L mid to distal ureter with mild hydronephrosis Assessment/Plan: pleasant 26 y/o lady with h/o nephrolithiasis , recurrent UTI/pyelo, and bacteremias last one 3 years ago who presented with fever chills and flank pain and was found to have sepsis from L pyelonephritis 1- Sepsis, 2/2 L pyelonephriotis 2/2 to L mid to distal ureter stone . patient is hemodynamically stable but with the presence of persistent obstruction and sepsis , she can decompensation quickly without intervention - will give zosyn pending intervention after that ceftriaxone will be probably safe - ID recs to follow - unfortunately, abx were given befoer barry cx was sent - give IVF - follow urine and blood cx - will contact [facility] in [place] to obtain previous cx result ( ? resistant bacteria ) - Spoke to Dr. Antoine for urgent interventin . recs to get Nephrostomy tube - called Dr. Wiley who will place Nephrostomy tube. - repeat lactic - Monitor VS - denies any h/o STDs, sexually active with male partner. Gn/C pending - denies calcium supplements, or diuretics use . has family h/o stones - hold DVT px due to intervention - obtain INR before procedure Visit type - Emergency Visit Emergency Visit: Yes ED Registration Date: 05/27/17 Care time: The patient presented to the Emergency Department on the above date and was hospitalized for further evaluation of their emergent condition. - New Patient This patient is new to me today: Yes Date on this admission: 05/27/17 - Critical Care Critical Care patient: No
[2017-05-27] MEDS ORDERED: morphine SULFATE 4 MG/ML VIAL IVPUSH PRN (08:11)
[2017-05-27 08:37] LABS: HEMATOCRIT 30.9 % (32.4-45.2); HEMOGLOBIN 10.5 GM/dL (10.7-15.3); MCHC 33.8 g/dl (32.0-36.0); MEAN CELL VOLUME 91.6 fl (80-96); MEAN PLT VOLUME 9.3 fl (7.5-11.1); PLATELET COUNT 194 K/MM3 (134-434); RBC 3.38 M/mm3 (3.60-5.2); RDW 13.2 % (11.6-15.6)
[2017-05-27 08:46] LABS: INR 1.81 (0.82-1.09); PROTHROMBIN TIME (PATIENT) 20.4 SEC (9.98-11.88); WHITE BLOOD COUNT 34.6 K/mm3 (4.0-10.0)
[2017-05-27 08:49] LABS: ACTIVATED PTT 29.9 SECONDS (26.9-34.4)
[2017-05-27] MEDS: MEROPENEM 1,000 MG in DEXTROSE 5%-WATER - 100 ML IVPB ONE ×2 (08:52→08:57)
[2017-05-27 09:01] LABS: ALBUMIN 2.5 g/dl (3.4-5.0); ANION GAP 11 (8-16); BILIRUBIN,TOTAL 0.4 mg/dL (0.2-1.0); BLOOD UREA NITROGEN 14 mg/dL (7-18); CALCIUM 7.4 mg/dL (8.5-10.1); CHLORIDE 105 mmol/L (98-107); CO2 23 mmol/L (21-32); CREATININE 1.2 mg/dL (0.55-1.02); GLUCOSE,RANDOM 110 mg/dL (74-106); MAGNESIUM 1.6 mg/dL (1.8-2.4); PHOSPHOROUS 3.1 mg/dL (2.5-4.9); POTASSIUM 3.7 mmol/L (3.5-5.1); SGOT/AST 19 U/L (15-37); SGPT/ALT 26 U/L (12-78); SODIUM 139 mmol/L (136-145); TOT PROT 5.6 g/dl (6.4-8.2)
[2017-05-27 09:02] LABS: ALK PHOS 59 U/L (45-117)
[2017-05-27] MEDS ORDERED: SODIUM CHLORIDE 1,000 ML IV STA ×2 (09:12→10:08)
--- NOTE | 2017-05-27 09:38 | CON.GU ---
Consult - History of Present Illness History of Present Illness: 26 yo female with h/o nephrolithiasis and UTI. Now admitted with left flank pain , fever. CT scan shows partially obstructing left ureteral stone. WBC on admission is 44. Currently hypotensive. I was contacted approx 1.5 hrs ago and recommended nephrostomy tube placement for decompression in light of patients clinical status. IR was subsequently contacted and is currently available for NT placement once pt medically stabilized - Alcohol/Substance Use Hx Alcohol Use: No - Smoking History Smoking history: Never smoked Have you smoked in the past 12 months: No Home Medications - Allergies Allergies/Adverse Reactions: Allergies Allergy/AdvReac Type Severity Reaction Status Date / Time No Known Allergies Allergy Verified 05/27/17 01:07 - Home Medications Home Medications: Ambulatory Orders Ibuprofen [Motrin -] 600 mg PO TID #21 tablet 05/12/17 Oxycodone HCl/Acetaminophen [Percocet 5-325 mg Tablet] 1 tab PO Q6H PRN #12 tablet MDD 4 tabs 05/12/17 Physical Exam- Vital Signs: Vital Signs Temperature 97.5 F L 05/27/17 09:00 Pulse Rate 106 H 05/27/17 09:05 Respiratory Rate 18 05/27/17 09:00 Blood Pressure 89/58 05/27/17 09:05 O2 Sat by Pulse Oximetry (%) 99 05/27/17 06:07 Labs: CBC, BMP 05/27/17 08:20 05/27/17 08:20 Imaging - Results Cat Scan: Report Reviewed Problem List - Problems (1) Left ureteral stone Assessment/Plan: in light of sepsis, emergent NT placement to be performed. broad spectrum abx as per ID. Once sepsis has been resolved then stone can be treated Code(s): N20.1 - CALCULUS OF URETER
--- NOTE | 2017-05-27 09:52 | PN ---
Progress Note (short form) - Note Progress Note: ID consult dictated imp/reccd 26 year old female with PMH of nephrolithiasis for last 10 years, [facility] admission [facility]- she had a blood infection and was discharged on IV antibiotics for one month- recently in March she was in [facility] when she developed flank pain and was seen in ED- she was told she needed laser lithotripsy for stones- she declined admission there as she was only visiting and was discharged on po antibiotics and pain meds- didnot f/u she was seen in the ED here for right flank pain and was discharged on po pain meds she reports fever, vomiting and flank pain for last 3 days in ED noted to have WBC of 44k, LA 2.8 and pyuria she had a spiral ct that apparently shows a left obstucting ureteral stone she is now hypotensive 62/43 but alert, no dizziness and being transferred to ICU plans for percutaneous nephrostomy once she is stabilized imp/reccd sepsis-septic shock due to uti/obstruction secondary to stone she has had multiple urinary infections and is at risk for resistant organisms will treat with vanco/meropenem until cultures are back plan is for percutaneous nephrostomy once BP is stabilized d/w hospitalist Problem List - Problems (1) Sepsis Code(s): A41.9 - SEPSIS, UNSPECIFIED ORGANISM (2) UTI (urinary tract infection) Code(s): N39.0 - URINARY TRACT INFECTION, SITE NOT SPECIFIED (3) Obstructive uropathy Code(s): N13.9 - OBSTRUCTIVE AND REFLUX UROPATHY, UNSPECIFIED (4) Left ureteral stone Code(s): N20.1 - CALCULUS OF URETER
[2017-05-27] MEDS ORDERED: MIDAZOLAM HCL 5 MG/1 ML Single Dose Vial ONE (09:53)
[2017-05-27] MEDS ORDERED: PIPERACILLIN/TAZOB 4.5 GM/100 ML PRE-DOCKED IVPB ONE (10:00)
[2017-05-27] MEDS ORDERED: CEFTRIAXONE 2 GM in DEXTROSE 5%-WATER - 100 ML IVPB SCH (10:00)
--- NOTE | 2017-05-27 10:12 | HOSP ---
Subjective - Review of Symptoms Events since last encounter: pt SBP dropped to 60, then improved to 80s. she is still awake , brushing her teeth, hernandez not have any dizziness or light headedness. give NS bolus of 1 L and start the second bolus if needed transfer pt to ICU. if her BP does not improve , then ellis place a line and pressors. Spoke to Dr. Wiley, will stabilize pt BP and then do the procedure place on Meropenem in mean time . d/w Dr. Rivers Physical Examination Vital Signs: Vital Signs Temperature 97.5 F L 05/27/17 09:00 Pulse Rate 106 H 05/27/17 09:05 Respiratory Rate 18 05/27/17 09:00 Blood Pressure 89/58 05/27/17 09:05 O2 Sat by Pulse Oximetry (%) 99 05/27/17 09:00 Labs: CBC, BMP 05/27/17 08:20 05/27/17 08:20
[2017-05-27] MEDS ORDERED: ONDANSETRON 4 MG/2 ML VIAL ONE (10:19)
--- NOTE | 2017-05-27 10:32 | CONSULT ---
Consult - text type - Consultation Consultation Note: Pulm/CCM Pt seen and examined in ICU CC: urosepsis, hydronephrosis HPI: Briefly Ms Molina is 26 y/o woman with hx of of nephrolithisis, iincluding episode of bacteremia/sepsis 2/2 pyelonephritis apparently treated 3 years ago at [facility]. She was seen recently at [facility] for flank pn, noted to still have stones, was told undergo lithotripsy but did not follow up. She now presented to ED c/o 2 days of dysuria w/ left flank pain, nausea and vomiting. Describes pain as severe, sharp in nature and radiates from left flank to groin. In ED pt was normotensive, toxic appearing. WBC was 44k, grossly +UA w/ 3K wbc, lactate 2.8, treated with Zosyn in ER. CT showed L hydro with obstructing stone. was consulted, plan for IR perc nephrostomy was planned. Pt admitted to floor but became hypotensive requiring multiple fluid boluses. Abx were broadened by ID with Diana/Shaniqua. Pt admitted to ICU for close monitoring and possible CVC/vasopressor support pending IR procedure. PMHx: as above PSx none Social: lives at home, has 1 child, no toxic habits Family hx: non-contrib Vital Signs Temp 97.7 F 05/27/17 09:45 Pulse 116 H 05/27/17 10:30 Resp 18 05/27/17 10:00 BP 97/58 05/27/17 10:30 Pulse Ox 100 05/27/17 10:10 Intake & Output 05/26/17 05/26/17 05/27/17 11:59 23:59 12:59 Intake Total 500 Balance 500 Weight 70.307 kg Intake: IVPB 500 Other: Voiding Method Bedside Commode Height 5 ft 2 in Body Mass Index (BMI) 28.3 Weight Measurement Method Est/Stated by Patient Ambulatory Orders Ibuprofen [Motrin -] 600 mg PO TID #21 tablet 05/12/17 Oxycodone HCl/Acetaminophen [Percocet 5-325 mg Tablet] 1 tab PO Q6H PRN #12 tablet MDD 4 tabs 05/12/17 Active Medications Chlorhexidine Gluconate (Hibiclens For Decolonization -) 1 applic TP HS SHARDA Sodium Chloride (Normal Saline -) 1,000 mls @ 150 mls/hr IV ASDIR SHARDA Last Admin: 05/27/17 08:51 Dose: 150 mls/hr Meropenem 1 gm/ Dextrose 100 mls @ 100 mls/hr IVPB Q8H-IV SHARDA PRN Reason: Protocol Vancomycin HCl 1,250 mg/ (Dextrose) 250 mls @ 125 mls/hr IVPB BID SHARDA PRN Reason: Protocol Sodium Chloride (Normal Saline -) 1,000 mls @ 1,000 mls/hr IV ASDIR STA Stop: 05/27/17 11:07 Morphine Sulfate (Morphine Sulfate) 2 mg IVPUSH Q4H PRN PRN Reason: PAIN LEVEL 6-10 Mupirocin (Bactroban Ointment (For Decolonization) -) 1 applic NS BID SHARDA Stop: 06/01/17 09:59 Last Admin: 05/27/17 10:43 Dose: Not Given Ondansetron HCl (Zofran -) 4 mg PO Q8H PRN PRN Reason: NAUSEA CBC, BMP 05/27/17 08:20 05/27/17 08:20 Micro: blood, urine, G/C all pending 05/27/17 04:38 Referring Physician: ADAMARIS CRUZ Patient Name: BEN MOLINA THIS IS A PRELIMINARY REPORT FROM IMAGING COURT OFFICER DATE OF SERVICE: 2017-05-27 03:54:15 IMAGES: [id number] EXAM: CT abdomen and pelvis without contrast HISTORY: Left flank pain COMPARISON: None. FINDINGS: Lung bases are clear. The visualized cardiac chambers are normal size and configuration. There is mild left hydronephrosis and perinephric inflammation secondary to a 6 x 5 mid to distal left ureteral stone. No additional stones identified. Normal unenhanced liver, gallbladder, pancreas, spleen, adrenal glands and right kidney. The stomach and abdominal small and large bowel are normal. There is no aortic aneurysm. There is no significant retroperitoneal lymphadenopathy. The pelvic small and large bowel are normal. The appendix is normal. The uterus and adnexal structures are normal. Urinary bladder is unremarkable. There is no pelvic free fluid. No discrete pelvic lymphadenopathy is identified. IMPRESSION: Mild to left hydronephrosis and perinephric inflammation secondary to a 6 x 5 mid to distal left ureteral stone. PE: Gen: young woman, non-toxic appearing, resting in bed Pulm: no distress, clear CV: RRR, no m/r/g appreciated ABD:mild/moderate L flank pn Ext: no edema Neuro: non-focal exam A/ All Active Problems Left ureteral stone (Acute) Obstructive uropathy (Acute) Sepsis (Acute) UTI (urinary tract infection) (Acute) Pelvic pain (Acute) P/ -volume resuscitated as needed, CVC if hypotensive after adequate IVF -shaniqua/vanco, narrow on cxls -IR for perc neph ERVIN -NPO pending procedure -SQH, no indication for GI phrophy -ICU monitoring Jocelyne OCONNELL [id number]
[2017-05-27] MEDS: MUPIROCIN 2% TOPICAL OINTMENT FOR DECOLONIZATION NS SCH ×2 (10:43→21:36)
[2017-05-27 11:08] LABS: PLATELET ESTIMATE NORMAL
[2017-05-27] MEDS: VANCOMYCIN 1,250 MG in DEXTROSE 5%-WATER - 250 ML IVPB SCH ×2 (11:58→21:38)
[2017-05-27 12:39] VITALS: BMI 25.8
[2017-05-27] MEDS ORDERED: LACTATED RINGERS SOLUTION 1000 ML INFUS.BAG IV ONE (14:00)
[2017-05-27] MEDS ORDERED: PT OWN MED DRAWER 7, Y5N ONE (15:28)
[2017-05-27] MEDS: MEROPENEM 1 GM in DEXTROSE 5%-WATER - 100 ML IVPB SCH ×2 (15:53→18:10)
[2017-05-27 17:19] LABS: URINE APPEARANCE SLCLOUDY; URINE BILIRUBIN NEGATIVE (NEGATIVE); URINE BLOOD 3+ (NEGATIVE); URINE COLOR LTYELLOW; URINE GLUCOSE (UA) 1+ (NEGATIVE); URINE KETONE NEGATIVE (NEGATIVE); URINE NITRITE NEGATIVE (NEGATIVE); URINE UROBILINOGEN NEGATIVE mg/dL (0.2-1.0)
[2017-05-27 17:20] LABS: URINE LEUK ESTERASE 2+ (NEGATIVE); URINE PROTEIN 2+ (NEGATIVE)
[2017-05-27] MEDS: ACETAMINOPHEN 1000 MG/100 ML VIAL (NON FORMULARY) IVPB PRN (18:10)
--- NOTE | 2017-05-27 19:58 | EKG ---
Test Reason : Blood Pressure : / mmHG Vent. Rate : 124 BPM Atrial Rate : 124 BPM P-R Int : 114 ms QRS Dur : 082 ms QT Int : 286 ms P-R-T Axes : 065 055 074 degrees QTc Int : 410 ms SINUS TACHYCARDIA OTHERWISE NORMAL ECG NO PREVIOUS ECGS AVAILABLE Confirmed by YOSEF ZARAGOZA MD ([id number]) on 05/27/2017 7:58:45 PM Referred By: Confirmed By:YOSEF ZARAGOZA MD
[2017-05-27 20:01] LABS: ARTERIAL BLD GAS O2 SATURATION 89.3 % (90-98.9); ARTERIAL BLOOD GAS BASE EXCESS -6.9 meq/l (-2-2); ARTERIAL BLOOD GAS PO2 63.7 mmHg (80-100)
[2017-05-27 20:04] LABS: HEMATOCRIT 32.7 % (32.4-45.2); HEMOGLOBIN 10.9 GM/dL (10.7-15.3); MCHC 33.2 g/dl (32.0-36.0); MEAN CELL VOLUME 93.5 fl (80-96); MEAN PLT VOLUME 9.7 fl (7.5-11.1); PLATELET COUNT 206 K/MM3 (134-434); RDW 13.7 % (11.6-15.6)
[2017-05-27 20:04] LABS: ALLENS TEST POSITIVE
[2017-05-27 20:10] LABS: WHITE BLOOD COUNT 45.9 K/mm3 (4.0-10.0)
[2017-05-27] MEDS ORDERED: FUROSEMIDE 40 MG/4 ML INJECTABLE VIAL IVPUSH ONE ×2 (20:14→23:45)
[2017-05-27 20:32] LABS: ANION GAP 10 (8-16); BLOOD UREA NITROGEN 14 mg/dL (7-18); CHLORIDE 108 mmol/L (98-107); CO2 21 mmol/L (21-32); GLUCOSE,RANDOM 122 mg/dL (74-106); POTASSIUM 3.5 mmol/L (3.5-5.1); SODIUM 139 mmol/L (136-145)
[2017-05-27 20:34] LABS: CALCIUM 6.7 mg/dL (8.5-10.1)
[2017-05-27] MEDS: CHLORHEXIDINE GLUCONATE 4% CLEANSER FOR DECOLONIZATION TP SCH (21:37)
[2017-05-27] MEDS: MORPHINE SULFATE 10 MG/1 ML *VIAL IVPUSH PRN (22:46)
[2017-05-28] MEDS ORDERED: PT OWN MED DRAWER 7, Y5N ONE ×6 (00:34→17:21)
[2017-05-28] MEDS: ACETAMINOPHEN 1000 MG/100 ML VIAL (NON FORMULARY) IVPB PRN ×2 (01:00→14:42)
[2017-05-28] MEDS: MEROPENEM 1 GM in DEXTROSE 5%-WATER - 100 ML IVPB SCH ×3 (01:23→17:23)
[2017-05-28 06:00] LABS: HEMATOCRIT 32.2 % (32.4-45.2); HEMOGLOBIN 10.9 GM/dL (10.7-15.3); MCHC 33.7 g/dl (32.0-36.0); MEAN CELL VOLUME 91.8 fl (80-96); MEAN PLT VOLUME 9.4 fl (7.5-11.1); PLATELET COUNT 177 K/MM3 (134-434); RBC 3.51 M/mm3 (3.60-5.2); RDW 13.5 % (11.6-15.6)
[2017-05-28 06:18] LABS: WHITE BLOOD COUNT 35.8 K/mm3 (4.0-10.0)
[2017-05-28 06:23] LABS: ANION GAP 11 (8-16); BLOOD UREA NITROGEN 13 mg/dL (7-18); CALCIUM 7.3 mg/dL (8.5-10.1); CHLORIDE 105 mmol/L (98-107); CO2 23 mmol/L (21-32); GLUCOSE,RANDOM 82 mg/dL (74-106); POTASSIUM 3.4 mmol/L (3.5-5.1); SODIUM 139 mmol/L (136-145)
--- NOTE | 2017-05-28 07:18 | PN ---
Progress Note, Physician Chief Complaint: ID ICU followup for this 26 year old female from the DR sepsis and UTI S/P placement of left nephrostomy tube Empiric antibiotics given Now positive blood cultures Vanco & Meropenen - Current Medication List Current Medications: Active Medications Acetaminophen (Ofirmev Injection -) 1,000 mg IVPB Q6H PRN PRN Reason: fever Last Admin: 05/28/17 01:00 Dose: 1,000 mg Chlorhexidine Gluconate (Hibiclens For Decolonization -) 1 applic TP HS SHARDA Last Admin: 05/27/17 21:37 Dose: 1 applic Meropenem 1 gm/ Dextrose 100 mls @ 100 mls/hr IVPB Q8H-IV SHARDA PRN Reason: Protocol Last Admin: 05/28/17 01:23 Dose: 100 mls/hr Vancomycin HCl 1,250 mg/ (Dextrose) 250 mls @ 125 mls/hr IVPB BID SHARDA PRN Reason: Protocol Last Admin: 05/27/17 21:38 Dose: 125 mls/hr Morphine Sulfate (Morphine Injection -) 2 mg IVPUSH Q4H PRN PRN Reason: PAIN LEVEL 6-10 Last Admin: 05/27/17 22:46 Dose: 2 mg Mupirocin (Bactroban Ointment (For Decolonization) -) 1 applic NS BID [facility] Stop: 06/01/17 09:59 Last Admin: 05/27/17 21:36 Dose: 1 applic Ondansetron HCl (Zofran -) 4 mg PO Q8H PRN PRN Reason: NAUSEA - Objective Vital Signs: Vital Signs Temperature 98.2 F 05/28/17 06:00 Pulse Rate 117 H 05/28/17 06:00 Respiratory Rate 25 H 05/28/17 06:00 Blood Pressure 92/55 05/28/17 06:00 O2 Sat by Pulse Oximetry (%) 90 L 05/27/17 20:56 Constitutional: Yes: Well Nourished, No Distress Neck: Yes: WNL, Supple Cardiovascular: Yes: Regular Rate and Rhythm, S1, S2. No: Murmur Respiratory: Yes: WNL, Regular, Diminished Gastrointestinal: Yes: Soft, Tenderness Genitourinary: Yes: CVA Tenderness - Left Labs: CBC, BMP 05/28/17 05:25 05/28/17 05:25 INR, PTT INR 1.81 (0.82-1.09) H 05/27/17 08:20 Problem List - Problems (1) Gram-negative bacteremia Code(s): R78.81 - BACTEREMIA (2) Left ureteral stone Code(s): N20.1 - CALCULUS OF URETER (3) Sepsis Code(s): A41.9 - SEPSIS, UNSPECIFIED ORGANISM (4) UTI (urinary tract infection) Code(s): N39.0 - URINARY TRACT INFECTION, SITE NOT SPECIFIED Assessment/Plan Laboratory Tests 05/27/17 05/27/17 05/28/17 08:20 19:25 05:25 WBC 35.8 H* Hgb 10.9 Plt Count 177 INR 1.81 H BUN Creatinine Lactic Acid 2.7 H* 05/28/17 05:25 WBC Hgb Plt Count INR BUN 13 Creatinine 1.0 Lactic Acid Assessment Sepsis syndrome Gram neg bacteremia ( 1 set reports gram pos bacilli ? in error as other set has GNB) SOB probable fluid overload Ureteral obstruction S/P Nephrostomy placement INR prolongation Plan For now Continue current antibiotics until final cultures clarified ICU critical care 35 brenna Champagne MD
[2017-05-28] MEDS ORDERED: POTASSIUM CHLORIDE TABS 20 MEQ TABLET.ER (FP) PO ONE (07:57)
--- NOTE | 2017-05-28 07:57 | PN ---
Teaching Attending Note Name of Resident: Sofia Rose ATTENDING PHYSICIAN STATEMENT I saw and evaluated the patient. I reviewed the resident's note and discussed the case with the resident. I agree with the resident's findings and plan as documented. SUBJECTIVEfever last night , has abd pain when examined. has L flank pain , better than yesterday. No SOB. feels better and hungry . events notable for hypoxia , lasix administration lat afternoon yesterday OBJECTIVE: NAd, AAox3. HEENT: MMM, no LAP in neck , no facial droop CV: RRR, no MRG ,no JVD Lungs:decreased breath sounds at both bases , good air enty in apex b/l . No wheezing Abd: soft, TTP in LUQ and LLQ, and suprapubic are, no rebound tenderness or guarding. L flank draining tube with clear yellow urine . Ext: no edema or erythema. forly with clear yellow urine Assessment/Plan: pleasant 26 y/o lady with h/o nephrolithiasis , recurrent UTI/pyelo, and bacteremias last one 3 years ago who presented with fever chills and flank pain and was found to have sepsis from L pyelonephritis 1- severe Sepsis with bacteremia , 2/2 L pyelonephriotis 2/2 to obstructin L ureteral stone . s/p L Nephrostomy 05/27 blood cx reviewed. G+ and G- bacilli . no identification yet . clinically doing better. - cont meropenem . - follow repeat blood cx . - US of L kidney pending ( severe pain last night , r/o apurva-renal bleed) - hold off IVF due to hypoxia and fluid overload - repeat INR, check PTT, fibrinogen to r/o mild DIC in setting of severe infection - plan for a stent placement once clinically improved - repeat Lactic acid 2- Hypoxia , resp distress: improved, likely due to pulm edema from fluid overload. Cxray supports that s/p IV lasix yesterday. - avoid more IVF now - hold off more diuresis , and allow autodiuresis , unless necessary 3- ERIN : due to volume depletion, sepsis , and obstructin . resolved monitor 4- hold heparin , untile apurva-nephric bleeding , DIC ruled out CCT 30 min
[2017-05-28 09:00] LABS: INR 1.67 (0.82-1.09); PROTHROMBIN TIME (PATIENT) 18.9 SEC (9.98-11.88)
[2017-05-28] MEDS: MORPHINE SULFATE 10 MG/1 ML *VIAL IVPUSH PRN ×2 (09:02→21:48)
[2017-05-28] MEDS: VANCOMYCIN 1,250 MG in DEXTROSE 5%-WATER - 250 ML IVPB SCH (09:09)
[2017-05-28] MEDS: MUPIROCIN 2% TOPICAL OINTMENT FOR DECOLONIZATION NS SCH ×2 (09:11→21:36)
[2017-05-28 10:02] LABS: ANISOCYTOSIS 0; MACROCYTOSIS 1+; OVALOCYTE 1+; PLATELET ESTIMATE NORMAL; TEAR DROP CELLS 1+; TOXIC GRANULATION 1+
--- NOTE | 2017-05-28 14:49 | PN ---
Teaching Attending Note Name of Resident: Robi Duckworth ATTENDING PHYSICIAN STATEMENT I saw and evaluated the patient. I reviewed the resident's note and discussed the case with the resident. I agree with the resident's findings and plan as documented. SUBJECTIVE: Pt seen and examined in the ICU. Still with significant left flank pain but slightly improved. Blood cultures growing gram negative bacilli. Remains febrile with shortness of breath and throat discomfort. OBJECTIVE: Last Vital Signs Temp Pulse Resp BP Pulse Ox 101.5 F H 125 H 23 103/91 96 05/28/17 14:00 05/28/17 14:00 05/28/17 14:00 05/28/17 14:00 05/28/17 09:00 Intake & Output 05/25/17 05/26/17 05/27/17 05/28/17 22:59 22:59 23:59 23:59 Intake Total 50 Output Total 1750 Balance -1700 Weight Gen: tachypneic at rest Heart: tachycardic, regular Lung: basilar rales Abd: soft, left flank tenderness Ext: no edema CBC, BMP 05/28/17 05:25 05/28/17 05:25 Active Medications Acetaminophen (Ofirmev Injection -) 1,000 mg IVPB Q6H PRN PRN Reason: fever Last Admin: 05/28/17 14:42 Dose: 1,000 mg Chlorhexidine Gluconate (Hibiclens For Decolonization -) 1 applic TP HS SHARDA Last Admin: 05/27/17 21:37 Dose: 1 applic Heparin Sodium (Porcine) (Heparin -) 5,000 unit SQ TID SHARDA Meropenem 1 gm/ Dextrose 100 mls @ 100 mls/hr IVPB Q8H-IV SHARDA PRN Reason: Protocol Last Admin: 05/28/17 13:45 Dose: 100 mls/hr Morphine Sulfate (Morphine Injection -) 2 mg IVPUSH Q4H PRN PRN Reason: PAIN LEVEL 6-10 Last Admin: 05/28/17 09:02 Dose: 2 mg Mupirocin (Bactroban Ointment (For Decolonization) -) 1 applic NS BID SHARDA Stop: 06/01/17 09:59 Last Admin: 05/28/17 09:11 Dose: 1 applic Ondansetron HCl (Zofran -) 4 mg PO Q8H PRN PRN Reason: NAUSEA ASSESSMENT AND PLAN: UTI Gram Negative Bacteremia Nephrolithiasis/Hydronephrosis/Obstructive Uropathy s/p Left Nephrostomy tube placement Sepsis Lactic Acidosis - continue antibiotics - f/u cultures - pain control - monitor CXR - O2 to keep SpO2 >90% - urology f/u - DVT prophylaxis - continue ICU monitoring critical care time spent in reviewing chart, evaluating patient and formulating plan 35 min
[2017-05-28] MEDS: HEPARIN NA (PORCINE) 5,000 UNITS/ML 1ML VIAL SQ SCH ×2 (15:25→21:38)
--- NOTE | 2017-05-28 17:29 | PN ---
Physical Exam: SUBJECTIVE: Briefly pt came in due to intense fevers and left flank pain found to have obstructing renal calculus and severe sepsis 2/2 to pyelonephritis. Pt had nephrostomy tube placed with good drainage with urology sign off to treat infection and then deal with renal calculus in lieu of the decompression. Yesterday pt was found to be hypotensive and was appropriately fluid resuscitated. Currently pt has continued L flank pain, however reports controlled pain. She continues to report subjective chills. Pt denies n/v, SOB, CP/discomfort, cough. OBJECTIVE: Vital Signs Period Temp Pulse Resp BP Sys/Lambert Pulse Ox Last 24 Hr 98.2 F-101.5 F 117-137 18-35 89-118/45-91 90-96 GENERAL: NAD, awake, alert, oriented x3 HEENT: NC/AT, EOMI, EMMANUEL, sclera anicteric, no JVD, no lymphadenopathy LUNGS: Diminished breath sounds at the bases bilaterally, no wheezes, no accessory muscle use. HEART: Tachycardic with regular rhythm, S1, S2 without murmur ABDOMEN: Soft, nondistended, L-sided severe tenderness on palpation, hypoactive bowel sounds, + guarding, no hepatomegaly, no masses BACK: L nephrostomy drain with base of site C/D/I EXTREMITIES: 2+ DP pulses, warm, well-perfused, no edema. NEUROLOGICAL: Nonfocal. Normal speech, gait not observed. PSYCH: Normal mood, normal affect. SKIN: Warm, dry, normal turgor, no rashes or lesions noted Laboratory Results - last 24 hr 05/27/17 05/27/17 05/27/17 18:35 19:25 19:25 WBC 45.9 H* D RBC 3.50 L Hgb 10.9 Hct 32.7 MCV 93.5 MCH 31.0 MCHC 33.2 RDW 13.7 Plt Count 206 MPV 9.7 Neutrophils % Neutrophils % (Manual) Band Neutrophils % Lymphocytes % Lymphocytes % (Manual) Monocytes % (Manual) Eosinophils % (Manual) Basophils % (Manual) Myelocytes % (Man) Promyelocytes % (Man) Blast Cells % (Manual) Nucleated RBC % Metamyelocytes Hypochromia Toxic Granulation Dohle Bodies Platelet Estimate Polychromasia Poikilocytosis Anisocytosis Microcytosis Macrocytosis Tear Drop Cells Ovalocytes PT with INR INR PTT (Actin FS) Fibrinogen Puncture Site Right radial ABG pH 7.30 L ABG pCO2 at Pt Temp 39.0 ABG pO2 at Pt Temp 63.7 L ABG HCO3 18.5 L ABG O2 Sat (Measured) 89.3 L ABG O2 Content 14.2 L ABG Base Excess -6.9 L Tim Test Positive Oxygen Flow Rate 100 Sodium 139 Potassium 3.5 Chloride 108 H Carbon Dioxide 21 Anion Gap 10 BUN 14 Creatinine 1.0 Random Glucose 122 H Lactic Acid Calcium 6.7 L* HIV 1&2 Antibody Screen HIV P24 Antigen 05/27/17 05/28/17 05/28/17 19:25 05:25 05:25 WBC 35.8 H* RBC 3.51 L Hgb 10.9 Hct 32.2 L MCV 91.8 MCH 31.0 MCHC 33.7 RDW 13.5 Plt Count 177 MPV 9.4 Neutrophils % No Result Required. Neutrophils % (Manual) 64.2 Band Neutrophils % 30.5 Lymphocytes % No Result Required. Lymphocytes % (Manual) 3.2 L D Monocytes % (Manual) 0 L D Eosinophils % (Manual) 2.1 D Basophils % (Manual) 0.0 Myelocytes % (Man) 0 D Promyelocytes % (Man) 0 Blast Cells % (Manual) 0 Nucleated RBC % 0 Metamyelocytes 0 D Hypochromia 0 Toxic Granulation 1+ Dohle Bodies 1+ Platelet Estimate Normal Polychromasia 0 Poikilocytosis 0 Anisocytosis 0 Microcytosis 0 Macrocytosis 1+ Tear Drop Cells 1+ Ovalocytes 1+ PT with INR INR PTT (Actin FS) Fibrinogen Puncture Site ABG pH ABG pCO2 at Pt Temp ABG pO2 at Pt Temp ABG HCO3 ABG O2 Sat (Measured) ABG O2 Content ABG Base Excess Tim Test Oxygen Flow Rate Sodium 139 Potassium 3.4 L Chloride 105 Carbon Dioxide 23 Anion Gap 11 BUN 13 Creatinine 1.0 Random Glucose 82 Lactic Acid 2.7 H* Calcium 7.3 L HIV 1&2 Antibody Screen HIV P24 Antigen 05/28/17 05/28/17 05/28/17 08:20 08:20 08:20 WBC RBC Hgb Hct MCV MCH MCHC RDW Plt Count MPV Neutrophils % Neutrophils % (Manual) Band Neutrophils % Lymphocytes % Lymphocytes % (Manual) Monocytes % (Manual) Eosinophils % (Manual) Basophils % (Manual) Myelocytes % (Man) Promyelocytes % (Man) Blast Cells % (Manual) Nucleated RBC % Metamyelocytes Hypochromia Toxic Granulation Dohle Bodies Platelet Estimate Polychromasia Poikilocytosis Anisocytosis Microcytosis Macrocytosis Tear Drop Cells Ovalocytes PT with INR 18.90 H INR 1.67 H PTT (Actin FS) Fibrinogen Puncture Site ABG pH ABG pCO2 at Pt Temp ABG pO2 at Pt Temp ABG HCO3 ABG O2 Sat (Measured) ABG O2 Content ABG Base Excess Tim Test Oxygen Flow Rate Sodium Potassium Chloride Carbon Dioxide Anion Gap BUN Creatinine Random Glucose Lactic Acid 2.3 H* Calcium HIV 1&2 Antibody Screen Negative HIV P24 Antigen Negative 05/28/17 05/28/17 08:20 08:20 WBC RBC Hgb Hct MCV MCH MCHC RDW Plt Count MPV Neutrophils % Neutrophils % (Manual) Band Neutrophils % Lymphocytes % Lymphocytes % (Manual) Monocytes % (Manual) Eosinophils % (Manual) Basophils % (Manual) Myelocytes % (Man) Promyelocytes % (Man) Blast Cells % (Manual) Nucleated RBC % Metamyelocytes Hypochromia Toxic Granulation Dohle Bodies Platelet Estimate Polychromasia Poikilocytosis Anisocytosis Microcytosis Macrocytosis Tear Drop Cells Ovalocytes PT with INR INR PTT (Actin FS) 31.4 Fibrinogen 611.0 H Puncture Site ABG pH ABG pCO2 at Pt Temp ABG pO2 at Pt Temp ABG HCO3 ABG O2 Sat (Measured) ABG O2 Content ABG Base Excess Tim Test Oxygen Flow Rate Sodium Potassium Chloride Carbon Dioxide Anion Gap BUN Creatinine Random Glucose Lactic Acid Calcium HIV 1&2 Antibody Screen HIV P24 Antigen Active Medications Generic Name Dose Route Start Last Admin Trade Name Freq PRN Reason Stop Dose Admin Acetaminophen 1,000 mg 05/27/17 17:47 05/28/17 14:42 Ofirmev Injection - IVPB 1,000 mg Q6H PRN Administration fever Chlorhexidine Gluconate 1 applic 05/27/17 22:00 05/27/17 21:37 Hibiclens For Decolonization - TP 1 applic HS SHARDA Administration Heparin Sodium (Porcine) 5,000 unit 05/28/17 14:00 05/28/17 15:25 Heparin - SQ 5,000 unit TID SHARDA Administration Meropenem 1 gm/ Dextrose 100 mls @ 100 mls/hr 05/27/17 16:00 05/28/17 17:23 IVPB 100 mls/hr Q8H-IV SHARDA Administration Protocol Morphine Sulfate 2 mg 05/27/17 19:12 05/28/17 09:02 Morphine Injection - IVPUSH 2 mg Q4H PRN Administration PAIN LEVEL 6-10 Mupirocin 1 applic 05/27/17 10:00 05/28/17 09:11 Bactroban Ointment (For Decolonization) - NS 06/01/17 09:59 1 applic BID SHARDA Administration Ondansetron HCl 4 mg 05/27/17 19:12 Zofran - PO Q8H PRN NAUSEA ASSESSMENT/PLAN: Neuro: Neurologically intact Respiratory: No respiratory distress Cardiovascular: Previous hypotension --Resolved --Avoid IVF due to effusions on CXR --No pressors previously needed ID UTI 2/2 to obstructive nephrolithiasis with Gram Negative Bacteremia --Cultures showing G- bacilli (other bottle showing G+ bacilli, either typo or contaminent) --Urine culture showing presumptive e. coli; await sensitivities --WBC downtrending yet still elevated at 35,000 --LA trend (repeat this morning 2.3) --ID on case --In lieu of cultures can stop Vancomycin --Continue Meropenem broad coverage --Await sensitivities Urology Obstructive uropathy --s/p nephrostomy tube in place --Urology on board however will deal with stone once infection resolved --Continue pain control Morphine 2mg q4h FEN: Fluids: Avoid due to fluid overload on CXR; repeat CXR this morning Electrolyte abnormalities: Hypokalemia (repleted with KDur) Nutrition: Advance to renal diet PPX: DVT - Heparin 5000 SQ TID Dispo: Continue ICU monitoring Case discussed with Dr. Elieser Duckworth, DO - IM PGY-1 Visit type - Emergency Visit Emergency Visit: No - New Patient This patient is new to me today: Yes Date on this admission: 05/28/17 - Critical Care Critical Care patient: Yes Total Critical Care Time (in minutes): 36 Critical Care Statement: The care of this patient involved high complexity decision making to prevent further life threatening deterioration of the patient 's condition and/or to evaluate & treat vital organ system(s) failure or risk of failure.
[2017-05-28] MEDS ORDERED: ACETAMINOPHEN 325 MG TABLET (FP) PO ONE (19:03)
--- NOTE | 2017-05-28 19:50 | PN ---
Physical Exam: SUBJECTIVE: Patient seen and examined in ICU Patient transferred to ICU for hypotension yesterday.Was adequately volume resuscitated. Yesterday evening she became tachypneic and was coughing. No acute events overnight. Patient was very uncomfortable and in severe pain this morning. OBJECTIVE: Vital Signs Period Temp Pulse Resp BP Sys/Lambert Pulse Ox Last 24 Hr 98.2 F-101.5 F 117-137 22-35 89-118/45-91 90-96 GENERAL: The patient is awake, alert, and fully oriented, in mild distress. HEAD: Normal with no signs of trauma. EYES: PERRL, extraocular movements intact, sclera anicteric, conjunctiva clear. No ptosis. ENT: Ears normal, nares patent, oropharynx clear without exudates, dry mucous membranes. NECK: Trachea midline, full range of motion, supple. LUNGS: Breath sounds equal, clear to auscultation bilaterally, no wheezes, no crackles, no accessory muscle use. Decreased breath sounds at bases HEART: Tachycardic, regular rhythm, S1, S2 without murmur, rub or gallop. ABDOMEN: Soft, +Ruq tenderness, L CVA tenderness, nondistended, normoactive bowel sounds, no guarding, no rebound, no hepatosplenomegaly, no masses. L nephrostomy in place-- draining clear yellow urine. c/d/i EXTREMITIES: 2+ pulses, warm, well-perfused, no edema. NEUROLOGICAL: Cranial nerves II through XII grossly intact. Normal speech, gait notobserved. PSYCH: Normal mood, normal affect. SKIN: Warm, dry, normal turgor, no rashes or lesions noted : Haas in place Laboratory Results - last 24 hr 05/27/17 05/27/17 05/27/17 18:35 19:25 19:25 WBC 45.9 H* D RBC 3.50 L Hgb 10.9 Hct 32.7 MCV 93.5 MCH 31.0 MCHC 33.2 RDW 13.7 Plt Count 206 MPV 9.7 Neutrophils % Neutrophils % (Manual) Band Neutrophils % Lymphocytes % Lymphocytes % (Manual) Monocytes % (Manual) Eosinophils % (Manual) Basophils % (Manual) Myelocytes % (Man) Promyelocytes % (Man) Blast Cells % (Manual) Nucleated RBC % Metamyelocytes Hypochromia Toxic Granulation Dohle Bodies Platelet Estimate Polychromasia Poikilocytosis Anisocytosis Microcytosis Macrocytosis Tear Drop Cells Ovalocytes PT with INR INR PTT (Actin FS) Fibrinogen Puncture Site Right radial ABG pH 7.30 L ABG pCO2 at Pt Temp 39.0 ABG pO2 at Pt Temp 63.7 L ABG HCO3 18.5 L ABG O2 Sat (Measured) 89.3 L ABG O2 Content 14.2 L ABG Base Excess -6.9 L Tim Test Positive Oxygen Flow Rate 100 Sodium 139 Potassium 3.5 Chloride 108 H Carbon Dioxide 21 Anion Gap 10 BUN 14 Creatinine 1.0 Random Glucose 122 H Lactic Acid Calcium 6.7 L* HIV 1&2 Antibody Screen HIV P24 Antigen 05/27/17 05/28/17 05/28/17 19:25 05:25 05:25 WBC 35.8 H* RBC 3.51 L Hgb 10.9 Hct 32.2 L MCV 91.8 MCH 31.0 MCHC 33.7 RDW 13.5 Plt Count 177 MPV 9.4 Neutrophils % No Result Required. Neutrophils % (Manual) 64.2 Band Neutrophils % 30.5 Lymphocytes % No Result Required. Lymphocytes % (Manual) 3.2 L D Monocytes % (Manual) 0 L D Eosinophils % (Manual) 2.1 D Basophils % (Manual) 0.0 Myelocytes % (Man) 0 D Promyelocytes % (Man) 0 Blast Cells % (Manual) 0 Nucleated RBC % 0 Metamyelocytes 0 D Hypochromia 0 Toxic Granulation 1+ Dohle Bodies 1+ Platelet Estimate Normal Polychromasia 0 Poikilocytosis 0 Anisocytosis 0 Microcytosis 0 Macrocytosis 1+ Tear Drop Cells 1+ Ovalocytes 1+ PT with INR INR PTT (Actin FS) Fibrinogen Puncture Site ABG pH ABG pCO2 at Pt Temp ABG pO2 at Pt Temp ABG HCO3 ABG O2 Sat (Measured) ABG O2 Content ABG Base Excess Tim Test Oxygen Flow Rate Sodium 139 Potassium 3.4 L Chloride 105 Carbon Dioxide 23 Anion Gap 11 BUN 13 Creatinine 1.0 Random Glucose 82 Lactic Acid 2.7 H* Calcium 7.3 L HIV 1&2 Antibody Screen HIV P24 Antigen 05/28/17 05/28/17 05/28/17 08:20 08:20 08:20 WBC RBC Hgb Hct MCV MCH MCHC RDW Plt Count MPV Neutrophils % Neutrophils % (Manual) Band Neutrophils % Lymphocytes % Lymphocytes % (Manual) Monocytes % (Manual) Eosinophils % (Manual) Basophils % (Manual) Myelocytes % (Man) Promyelocytes % (Man) Blast Cells % (Manual) Nucleated RBC % Metamyelocytes Hypochromia Toxic Granulation Dohle Bodies Platelet Estimate Polychromasia Poikilocytosis Anisocytosis Microcytosis Macrocytosis Tear Drop Cells Ovalocytes PT with INR 18.90 H INR 1.67 H PTT (Actin FS) Fibrinogen Puncture Site ABG pH ABG pCO2 at Pt Temp ABG pO2 at Pt Temp ABG HCO3 ABG O2 Sat (Measured) ABG O2 Content ABG Base Excess Tim Test Oxygen Flow Rate Sodium Potassium Chloride Carbon Dioxide Anion Gap BUN Creatinine Random Glucose Lactic Acid 2.3 H* Calcium HIV 1&2 Antibody Screen Negative HIV P24 Antigen Negative 05/28/17 05/28/17 08:20 08:20 WBC RBC Hgb Hct MCV MCH MCHC RDW Plt Count MPV Neutrophils % Neutrophils % (Manual) Band Neutrophils % Lymphocytes % Lymphocytes % (Manual) Monocytes % (Manual) Eosinophils % (Manual) Basophils % (Manual) Myelocytes % (Man) Promyelocytes % (Man) Blast Cells % (Manual) Nucleated RBC % Metamyelocytes Hypochromia Toxic Granulation Dohle Bodies Platelet Estimate Polychromasia Poikilocytosis Anisocytosis Microcytosis Macrocytosis Tear Drop Cells Ovalocytes PT with INR INR PTT (Actin FS) 31.4 Fibrinogen 611.0 H Puncture Site ABG pH ABG pCO2 at Pt Temp ABG pO2 at Pt Temp ABG HCO3 ABG O2 Sat (Measured) ABG O2 Content ABG Base Excess Tim Test Oxygen Flow Rate Sodium Potassium Chloride Carbon Dioxide Anion Gap BUN Creatinine Random Glucose Lactic Acid Calcium HIV 1&2 Antibody Screen HIV P24 Antigen Active Medications Generic Name Dose Route Start Last Admin Trade Name Freq PRN Reason Stop Dose Admin Acetaminophen 1,000 mg 05/27/17 17:47 05/28/17 14:42 Ofirmev Injection - IVPB 1,000 mg Q6H PRN Administration fever Chlorhexidine Gluconate 1 applic 05/27/17 22:00 05/27/17 21:37 Hibiclens For Decolonization - TP 1 applic HS SHARDA Administration Heparin Sodium (Porcine) 5,000 unit 05/28/17 14:00 05/28/17 15:25 Heparin - SQ 5,000 unit TID SHARDA Administration Meropenem 1 gm/ Dextrose 100 mls @ 100 mls/hr 05/27/17 16:00 05/28/17 17:23 IVPB 100 mls/hr Q8H-IV SHARDA Administration Protocol Morphine Sulfate 2 mg 05/27/17 19:12 05/28/17 09:02 Morphine Injection - IVPUSH 2 mg Q4H PRN Administration PAIN LEVEL 6-10 Mupirocin 1 applic 05/27/17 10:00 05/28/17 09:11 Bactroban Ointment (For Decolonization) - NS 06/01/17 09:59 1 applic BID SHARDA Administration Ondansetron HCl 4 mg 05/27/17 19:12 Zofran - PO Q8H PRN NAUSEA ASSESSMENT/PLAN: 26 year old female with past medical history of nephrolithiasis, recurrent UTI, and previous bacteremia presented with left flank pain and found to be in severe sepsis secondary to pyelonephritis with left mid/distal stone #Severe sepsis 2/2 to pyelonephritis with stone -Lactic acid trending in right direction, last one 1.1 -Continue meropenem 1g q8h -Can D/c Vancomycin -F/u cultures (blood), G+ bacilli and G- bacilli growing -F/u U/s of left kidney -Left nephrostomy placed, can place stent once patient is more medically stable -tylenol for fever #Acute respiratory distress -2 doses of lasix given yesterday -Hold IVF in setting of possible pulmonary edema #ERIN, resolving -Hold IVF -monitor Cr -Avoid nephrotoxic medications #FEN/GI -no ivf -monitor bmp -regular diet #PPx -hold heparin until bleed is ruled out Visit type - Emergency Visit Emergency Visit: Yes ED Registration Date: 05/27/17 Care time: The patient presented to the Emergency Department on the above date and was hospitalized for further evaluation of their emergent condition. - New Patient This patient is new to me today: Yes Date on this admission: 05/28/17 - Critical Care Critical Care patient: Yes Total Critical Care Time (in minutes): 35 Critical Care Statement: The care of this patient involved high complexity decision making to prevent further life threatening deterioration of the patient 's condition and/or to evaluate & treat vital organ system(s) failure or risk of failure.
[2017-05-28] MEDS: CHLORHEXIDINE GLUCONATE 4% CLEANSER FOR DECOLONIZATION TP SCH (21:38)
[2017-05-29] MEDS: ACETAMINOPHEN 1000 MG/100 ML VIAL (NON FORMULARY) IVPB PRN (01:17)
[2017-05-29] MEDS ORDERED: PT OWN MED DRAWER 7, Y5N ONE (01:18)
[2017-05-29] MEDS: MEROPENEM 1 GM in DEXTROSE 5%-WATER - 100 ML IVPB SCH ×2 (01:23→09:35)
[2017-05-29 05:55] LABS: HEMATOCRIT 32.9 % (32.4-45.2); HEMOGLOBIN 11.4 GM/dL (10.7-15.3); MCH 31.5 pg (25.7-33.7); MCHC 34.8 g/dl (32.0-36.0); MEAN CELL VOLUME 90.6 fl (80-96); MEAN PLT VOLUME 9.3 fl (7.5-11.1); PLATELET COUNT 178 K/MM3 (134-434); RBC 3.63 M/mm3 (3.60-5.2); RDW 13.7 % (11.6-15.6); WHITE BLOOD COUNT 17.4 K/mm3 (4.0-10.0)
[2017-05-29 06:19] LABS: ALBUMIN 1.8 g/dl (3.4-5.0); BILIRUBIN,DIRECT < 0.2 mg/dL (0.0-0.2); SGOT/AST 16 U/L (15-37); SGPT/ALT 23 U/L (12-78)
[2017-05-29 06:20] LABS: ALK PHOS 106 U/L (45-117); BILIRUBIN,TOTAL 0.2 mg/dL (0.2-1.0); TOT PROT 5.1 g/dl (6.4-8.2)
[2017-05-29] MEDS: HEPARIN NA (PORCINE) 5,000 UNITS/ML 1ML VIAL SQ SCH ×3 (06:31→22:28)
[2017-05-29 06:44] LABS: ALBUMIN 1.9 g/dl (3.4-5.0); ALK PHOS 109 U/L (45-117); ANION GAP 7 (8-16); BILIRUBIN,TOTAL 0.2 mg/dL (0.2-1.0); BLOOD UREA NITROGEN 12 mg/dL (7-18); CALCIUM 7.4 mg/dL (8.5-10.1); CHLORIDE 106 mmol/L (98-107); CO2 26 mmol/L (21-32); CREATININE 0.8 mg/dL (0.55-1.02); GLUCOSE,RANDOM 81 mg/dL (74-106); MAGNESIUM 1.7 mg/dL (1.8-2.4); PHOSPHOROUS 2.2 mg/dL (2.5-4.9); POTASSIUM 3.3 mmol/L (3.5-5.1); SGOT/AST 15 U/L (15-37); SGPT/ALT 24 U/L (12-78); SODIUM 139 mmol/L (136-145); TOT PROT 5.1 g/dl (6.4-8.2)
--- NOTE | 2017-05-29 06:45 | PN ---
Physical Exam: SUBJECTIVE: Pt noted to have spiking fevers overnight to Tmax of 102 which has responded to ofirmev administration. No other acute events. Pt is currently tear -y eyed due to feeling stressed about medical situation. Pt reports continued pain, however same if not better than before. Continues to have chills throughout the night. Denies CP/discomfort, cough. OBJECTIVE: Vital Signs Period Temp Pulse Resp BP Sys/Lambert Pulse Ox Last 24 Hr 99 F-102 F 115-137 22-33 99-128/45-91 96-96 GENERAL: NAD, awake, alert and oriented x3, tear-y eyed today HEENT: NC/AT, slight scleral injections, EMMANUEL, No JVD, dry-moist mucosa noted LUNGS: CTA bilaterally with some diminished breath sounds posteriorly at the bases, no wheezes, no accessory muscle use. HEART: Tachycardic with regular rhythm, S1, S2 without murmur ABDOMEN: Soft, L-sided tenderness similar to previous exam with some voluntary guarding, nondistended, normoactive bowel sounds BACK: Tattoos noted, L nephrostomy tube in place with C/D/I site of entry, Clear -yellow urine in collection bag almost full EXTREMITIES: 2+ DP pulses, warm, well-perfused, no edema. NEUROLOGICAL: Cranial nerves II through XII grossly intact. Normal speech, gait not observed. SKIN: Very warm, dry, no rashes or lesions noted Laboratory Results - last 24 hr 05/29/17 05:35 WBC 17.4 H D RBC 3.63 Hgb 11.4 Hct 32.9 MCV 90.6 MCH 31.5 MCHC 34.8 RDW 13.7 Plt Count 178 MPV 9.3 Neutrophils % (Manual) Band Neutrophils % Lymphocytes % (Manual) Monocytes % (Manual) Eosinophils % (Manual) Basophils % (Manual) Myelocytes % (Man) Promyelocytes % (Man) Blast Cells % (Manual) Nucleated RBC % Metamyelocytes Hypochromia Toxic Granulation Dohle Bodies Platelet Estimate Polychromasia Poikilocytosis Anisocytosis Microcytosis Macrocytosis Tear Drop Cells Ovalocytes PT with INR INR PTT (Actin FS) Fibrinogen Lactic Acid Total Bilirubin Direct Bilirubin AST ALT Alkaline Phosphatase Total Protein Albumin C. trachomatis (LOTTIE) HIV 1&2 Antibody Screen HIV P24 Antigen N. gonorrhoeae (LOTTIE) 05/29/17 05:35 WBC RBC Hgb Hct MCV MCH MCHC RDW Plt Count MPV Neutrophils % (Manual) Band Neutrophils % Lymphocytes % (Manual) Monocytes % (Manual) Eosinophils % (Manual) Basophils % (Manual) Myelocytes % (Man) Promyelocytes % (Man) Blast Cells % (Manual) Nucleated RBC % Metamyelocytes Hypochromia Toxic Granulation Dohle Bodies Platelet Estimate Polychromasia Poikilocytosis Anisocytosis Microcytosis Macrocytosis Tear Drop Cells Ovalocytes PT with INR INR PTT (Actin FS) Fibrinogen Lactic Acid Total Bilirubin 0.2 D Direct Bilirubin < 0.2 AST 16 ALT 23 Alkaline Phosphatase 106 Total Protein 5.1 L Albumin 1.8 L C. trachomatis (LOTTIE) HIV 1&2 Antibody Screen HIV P24 Antigen N. gonorrhoeae (LOTTIE) Active Medications Generic Name Dose Route Start Last Admin Trade Name Freq PRN Reason Stop Dose Admin Chlorhexidine Gluconate 1 applic 05/27/17 22:00 05/28/17 21:38 Hibiclens For Decolonization - TP 1 applic HS SHARDA Administration Heparin Sodium (Porcine) 5,000 unit 05/28/17 14:00 05/29/17 06:31 Heparin - SQ 5,000 unit TID SHARDA Administration Meropenem 1 gm/ Dextrose 100 mls @ 100 mls/hr 05/27/17 16:00 05/29/17 01:23 IVPB 100 mls/hr Q8H-IV SHARDA Administration Protocol Morphine Sulfate 2 mg 05/27/17 19:12 05/28/17 21:48 Morphine Injection - IVPUSH 2 mg Q4H PRN Administration PAIN LEVEL 6-10 Mupirocin 1 applic 05/27/17 10:00 05/28/17 21:36 Bactroban Ointment (For Decolonization) - NS 06/01/17 09:59 1 applic BID SHARDA Administration Ondansetron HCl 4 mg 05/27/17 19:12 Zofran - PO Q8H PRN NAUSEA ASSESSMENT/PLAN: Neuro: Neurologically intact Respiratory: No respiratory distress --CXR today shows resolving effusions compared to yesterday despite overpentrating technique compared to yesterday --One time dose Lasix 20mg IVP --Encourage incentive spirometer to decrease risk of compressive atelectasis and post-obstructive PNA Cardiovascular: Previous hypotension --Resolved --No pressors previously needed --Would be weary to start fluids; however can bolus as needed ID UTI 2/2 to obstructive nephrolithiasis with Gram Negative Bacteremia --Cultures showing G- bacilli (other bottle showing G+ bacilli, either typo or contaminent) --Urine culture showing E. coli; await sensitivities --WBC normalizing to 17,000 today (from 36,000 yesterday) --LA normalized yesterday to 1.1 --ID on case --Continue Meropenem Day 3 --Await sensitivities --Continues to spike fevers however overall max is decreasing --Continue Tylenol 650mg q6h Urology Obstructive uropathy --s/p nephrostomy tube in place --Urology on board however will deal with stone once infection resolved --Continue pain control Morphine 2mg q4h FEN: Fluids: None currently Electrolyte abnormalities: Hypokalemia 3.3 today (repleted with KDur 40mEq), HypoMg (repleted), HypoPhos (repleted) Nutrition: Renal diet PPX: DVT - Heparin 5000 SQ TID Deconditioning - OOB to chair and activity as tolerated Dispo: Continue ICU monitoring Case discussed with Dr. Elieser Duckworth, DO - IM PGY-1 Visit type - Emergency Visit Emergency Visit: No - New Patient This patient is new to me today: No - Critical Care Critical Care patient: Yes Total Critical Care Time (in minutes): 35 Critical Care Statement: The care of this patient involved high complexity decision making to prevent further life threatening deterioration of the patient 's condition and/or to evaluate & treat vital organ system(s) failure or risk of failure.
--- NOTE | 2017-05-29 08:11 | PN ---
Progress Note (short form) - Note Progress Note: complaining of fever overnight no hypotension no flank pain off ivf Vital Signs Period Temp Pulse Resp BP Sys/Lambert Pulse Ox Last 24 Hr 99 F-102 F 115-137 22-33 99-128/45-91 96-96 cor-rrr lungs decreased bs at bases bailaterally abd- soft,nt +left nephrostomy draining clear urine ext no edema CBC, BMP 05/29/17 05:35 05/29/17 05:35 Microbiology 05/28/17 05:25 Blood - Peripheral Venous Blood Culture - Preliminary NO GROWTH OBTAINED AFTER 24 HOURS, INCUBATION TO CONTINUE FOR 4 DAYS. 05/27/17 06:00 Urine - Urine Clean Catch Urine Culture - Preliminary Lactose Fermenting Neg Bacilli Non Lactose Fermenting Gnb 05/27/17 05:26 Blood - Peripheral Venous Blood Culture - Preliminary Non Lactose Fermenting Gnb 05/27/17 05:26 Blood - Peripheral Venous Blood Culture - Preliminary Non Lactose Fermenting Gnb Current Medications Chlorhexidine Gluconate (Hibiclens For Decolonization -) 1 applic TP HS SHARDA Last Admin: 05/28/17 21:38 Dose: 1 applic Heparin Sodium (Porcine) (Heparin -) 5,000 unit SQ TID SHARDA Last Admin: 05/29/17 06:31 Dose: 5,000 unit Meropenem 1 gm/ Dextrose 100 mls @ 100 mls/hr IVPB Q8H-IV SHARDA PRN Reason: Protocol Last Admin: 05/29/17 01:23 Dose: 100 mls/hr Morphine Sulfate (Morphine Injection -) 2 mg IVPUSH Q4H PRN PRN Reason: PAIN LEVEL 6-10 Last Admin: 05/28/17 21:48 Dose: 2 mg Mupirocin (Bactroban Ointment (For Decolonization) -) 1 applic NS BID SHARDA Stop: 06/01/17 09:59 Last Admin: 05/28/17 21:36 Dose: 1 applic Ondansetron HCl (Zofran -) 4 mg PO Q8H PRN PRN Reason: NAUSEA imp/reccd sepsis-septic shock due to uti/obstruction secondary to stone gram negative sepsis she has had multiple urinary infections and is at risk for resistant organisms continue meropenem f/u blood culture results d/w icu resident Problem List - Problems (1) Sepsis Code(s): A41.9 - SEPSIS, UNSPECIFIED ORGANISM (2) UTI (urinary tract infection) Code(s): N39.0 - URINARY TRACT INFECTION, SITE NOT SPECIFIED (3) Obstructive uropathy Code(s): N13.9 - OBSTRUCTIVE AND REFLUX UROPATHY, UNSPECIFIED (4) Left ureteral stone Code(s): N20.1 - CALCULUS OF URETER
--- NOTE | 2017-05-29 08:34 | PN ---
Progress Note (short form) - Note Progress Note: continues to spike temps lt nephrostomy tube draining well urine grossly clear from NT and marie cultures pending cont marie, NT drainage Abx as per ID Problem List - Problems (1) Left ureteral stone Code(s): N20.1 - CALCULUS OF URETER
[2017-05-29] MEDS: ACETAMINOPHEN 325 MG TABLET (FP) PO PRN ×3 (08:48→20:16)
[2017-05-29] MEDS ORDERED: POTASSIUM CHLORIDE TABS 20 MEQ TABLET.ER (FP) PO ONE (09:00)
[2017-05-29] MEDS: MUPIROCIN 2% TOPICAL OINTMENT FOR DECOLONIZATION NS SCH ×2 (09:35→22:32)
[2017-05-29] MEDS ORDERED: MAGNESIUM OXIDE 400 MG TABLET (FP) PO ONE (10:15)
[2017-05-29] MEDS ORDERED: FUROSEMIDE 40 MG/4 ML INJECTABLE VIAL IVPUSH ONE (10:30)
[2017-05-29] MEDS ORDERED: NAPH,MB-DB/K PH,MBDB POWDER PACKET PO ONE (10:52)
--- NOTE | 2017-05-29 11:47 | PN ---
Teaching Attending Note Name of Resident: Robi Duckworth ATTENDING PHYSICIAN STATEMENT I saw and evaluated the patient. I reviewed the resident's note and discussed the case with the resident. I agree with the resident's findings and plan as documented. SUBJECTIVE: Pt seen and examined in the ICU. Still with left flank pain, fevers and shortness of breath. On 50% ventimask but desaturates off. OBJECTIVE: Last Vital Signs Temp Pulse Resp BP Pulse Ox 100 F H 118 H 26 H 115/64 96 05/29/17 08:44 05/29/17 08:44 05/29/17 08:44 05/29/17 08:44 05/28/17 21:00 Intake & Output 05/26/17 05/27/17 05/28/17 05/29/17 22:59 23:59 23:59 23:59 Intake Total 960 200 Output Total 3750 750 Balance -2790 -550 Weight 79.1 kg Gen: tachypneic at rest Heart: tachycardic, regular Lung: bibasilar rales Abd: soft, nontender Ext: no edema CBC, BMP 05/29/17 05:35 05/29/17 05:35 Active Medications Acetaminophen (Tylenol -) 650 mg PO Q4H PRN PRN Reason: FEVER Last Admin: 05/29/17 08:48 Dose: 650 mg Chlorhexidine Gluconate (Hibiclens For Decolonization -) 1 applic TP HS SHARDA Last Admin: 05/28/17 21:38 Dose: 1 applic Heparin Sodium (Porcine) (Heparin -) 5,000 unit SQ TID SHARDA Last Admin: 05/29/17 06:31 Dose: 5,000 unit Meropenem 1 gm/ Dextrose 100 mls @ 100 mls/hr IVPB Q8H-IV SHARDA PRN Reason: Protocol Last Admin: 05/29/17 09:35 Dose: 100 mls/hr Morphine Sulfate (Morphine Injection -) 2 mg IVPUSH Q4H PRN PRN Reason: PAIN LEVEL 6-10 Last Admin: 05/28/17 21:48 Dose: 2 mg Mupirocin (Bactroban Ointment (For Decolonization) -) 1 applic NS BID SHARDA Stop: 06/01/17 09:59 Last Admin: 05/29/17 09:35 Dose: 1 applic Ondansetron HCl (Zofran -) 4 mg PO Q8H PRN PRN Reason: NAUSEA ASSESSMENT AND PLAN: UTI Gram Negative Bacteremia Nephrolithiasis/Hydronephrosis/Obstructive Uropathy s/p Left Nephrostomy tube placement Sepsis Lactic Acidosis Volume Overload - continue antibiotics - f/u cultures - pain control - lasix today - monitor urine output, creatinine - replete lytes - monitor CXR - O2 to keep SpO2 >90% - urology f/u - DVT prophylaxis - continue ICU monitoring critical care time spent in reviewing chart, evaluating patient and formulating plan 35 min
--- NOTE | 2017-05-29 12:49 | EKG ---
Test Reason : Blood Pressure : / mmHG Vent. Rate : 136 BPM Atrial Rate : 136 BPM P-R Int : 122 ms QRS Dur : 084 ms QT Int : 272 ms P-R-T Axes : 047 060 041 degrees QTc Int : 409 ms POOR DATA QUALITY, INTERPRETATION MAY BE ADVERSELY AFFECTED SINUS TACHYCARDIA OTHERWISE NORMAL ECG WHEN COMPARED WITH ECG OF 27-MAY-2017 05:44, NONSPECIFIC T WAVE ABNORMALITY NOW EVIDENT IN INFERIOR LEADS Confirmed by MD SANJAY, TABITHA ([id number]) on 05/29/2017 12:48:51 PM Referred By: Confirmed By:TABITHA GRACE MD
--- NOTE | 2017-05-29 15:48 | PN ---
Physical Exam: SUBJECTIVE: Patient seen and examined No acute events overnight. Patient is still in significant pain and having trouble breathing this morning. Patient is worried about her fevers. Had fevers overnight. OBJECTIVE: Vital Signs Period Temp Pulse Resp BP Sys/Lambert Pulse Ox Last 24 Hr 99 F-102 F 115-137 22-33 99-128/45-90 96 GENERAL: The patient is awake, alert, and fully oriented, in mild distress. Crying HEAD: Normal with no signs of trauma. EYES: PERRL, extraocular movements intact, sclera anicteric, conjunctiva clear. No ptosis. ENT: Oropharynx clear without exudates, moist mucous membranes. NECK: Trachea midline, full range of motion, supple. LUNGS: Breath sounds equal, clear to auscultation bilaterally, no wheezes, no crackles, no accessory muscle use. Decreased breath sounds at bases HEART: Tachycardic, regular rhythm, S1, S2 without murmur, rub or gallop. ABDOMEN: Soft, diffuse abdominal tenderness, mild L CVA tenderness, nondistended , normoactive bowel sounds, no guarding, no rebound, no hepatosplenomegaly, no masses. L nephrostomy in place-- draining clear yellow urine. c/d/i dressing EXTREMITIES: 2+ pulses, warm, well-perfused, no edema. NEUROLOGICAL: Cranial nerves II through XII grossly intact. Normal speech, gait not observed. PSYCH: Normal mood, normal affect. SKIN: Warm, dry, normal turgor, no rashes or lesions noted : Haas in place Laboratory Results - last 24 hr 05/27/17 05/28/17 05/29/17 06:00 20:30 05:35 WBC 17.4 H D RBC 3.63 Hgb 11.4 Hct 32.9 MCV 90.6 MCH 31.5 MCHC 34.8 RDW 13.7 Plt Count 178 MPV 9.3 Sodium Potassium Chloride Carbon Dioxide Anion Gap BUN Creatinine Creat Clearance w eGFR Random Glucose Lactic Acid 1.1 Calcium Phosphorus Magnesium Total Bilirubin Direct Bilirubin AST ALT Alkaline Phosphatase Total Protein Albumin C. trachomatis (LOTTIE) Negative N. gonorrhoeae (LOTTIE) Negative 05/29/17 05/29/17 05:35 05:35 WBC RBC Hgb Hct MCV MCH MCHC RDW Plt Count MPV Sodium 139 Potassium 3.3 L Chloride 106 Carbon Dioxide 26 Anion Gap 7 L BUN 12 Creatinine 0.8 Creat Clearance w eGFR > 60 Random Glucose 81 Lactic Acid Calcium 7.4 L Phosphorus 2.2 L Magnesium 1.7 L Total Bilirubin 0.2 D 0.2 Direct Bilirubin < 0.2 AST 15 16 ALT 24 23 Alkaline Phosphatase 109 106 Total Protein 5.1 L 5.1 L Albumin 1.9 L 1.8 L C. trachomatis (LOTTIE) N. gonorrhoeae (LOTTIE) Active Medications Generic Name Dose Route Start Last Admin Trade Name Freq PRN Reason Stop Dose Admin Acetaminophen 650 mg 05/29/17 08:18 05/29/17 15:42 Tylenol - PO 650 mg Q4H PRN Administration FEVER Chlorhexidine Gluconate 1 applic 05/27/17 22:00 05/28/17 21:38 Hibiclens For Decolonization - TP 1 applic HS SHARDA Administration Heparin Sodium (Porcine) 5,000 unit 05/28/17 14:00 05/29/17 06:31 Heparin - SQ 5,000 unit TID SHARDA Administration Cefazolin Sodium/Dextrose 2 gm in 50 mls @ 100 mls/hr 05/29/17 18:00 Ancef 2 Gm Premixed Ivpb - IVPB Q8H-IV SHARDA Morphine Sulfate 2 mg 05/27/17 19:12 05/28/17 21:48 Morphine Injection - IVPUSH 2 mg Q4H PRN Administration PAIN LEVEL 6-10 Mupirocin 1 applic 05/27/17 10:00 05/29/17 09:35 Bactroban Ointment (For Decolonization) - NS 06/01/17 09:59 1 applic BID SHARDA Administration Ondansetron HCl 4 mg 05/27/17 19:12 Zofran - PO Q8H PRN NAUSEA ASSESSMENT/PLAN: 26 year old female with past medical history of nephrolithiasis, recurrent UTI, and previous bacteremia presented with left flank pain and found to be in severe sepsis secondary to pyelonephritis with left mid/distal stone #Severe sepsis 2/2 to pyelonephritis with stone -Lactic acid trending in right direction, last one 1.1 -Switched from meropenem to ancef 2g q8h -BCx: proteus, UCx: proteus and e coli. Repeat bcx- ngtd -Left nephrostomy placed, can place stent once patient is more medically stable -tylenol for fever -morphine for pain -monitor fevers, no signs of DIC #Acute respiratory distress -1 dose lasix 20 mg iv given today -Hold IVF in setting of possible pulmonary edema #ERIN, resolved -Hold IVF -monitor Cr -Avoid nephrotoxic medications #FEN/GI -no ivf -monitor bmp -regular diet #PPx -heparin 5000 u sq tid Visit type - Emergency Visit Emergency Visit: Yes ED Registration Date: 05/27/17 Care time: The patient presented to the Emergency Department on the above date and was hospitalized for further evaluation of their emergent condition. - New Patient This patient is new to me today: No - Critical Care Critical Care patient: Yes Total Critical Care Time (in minutes): 35 Critical Care Statement: The care of this patient involved high complexity decision making to prevent further life threatening deterioration of the patient 's condition and/or to evaluate & treat vital organ system(s) failure or risk of failure.
[2017-05-29] MEDS: MORPHINE SULFATE 10 MG/1 ML *VIAL IVPUSH PRN ×2 (15:56→21:23)
--- NOTE | 2017-05-29 17:38 | PN ---
Teaching Attending Note Name of Resident: Misbah Wei ATTENDING PHYSICIAN STATEMENT I saw and evaluated the patient. I reviewed the resident's note and discussed the case with the resident. I agree with the resident's findings and plan as documented. SUBJECTIVE: had fever last night . no abd pain , minimal L flank pain . cont to be SOB OBJECTIVE: NAd. Looks comfortable HEENT: MMM, no LAP in neck, no facial droop CV: RRR, no MRG ,no JVD Lungs:decreased breath sounds at both bases ,but imporved air entry compared to yesterday's exam. Abd: soft, TTP in LUQ and LLQ, and suprapubic are, no rebound tenderness or guarding. L flank draining tube with clear yellow urine . Ext: trace edema marie with clear yellow urine Assessment/Plan: pleasant 26 y/o lady with h/o nephrolithiasis , recurrent UTI/pyelo, and bacteremias last one 3 years ago who presented with fever chills and flank pain and was found to have sepsis from L pyelonephritis 1- Severe Sepsis with bacteremia, 2/2 L pyelonephritis 2/2 to obstructing L ureteral stone . s/p L Nephrostomy 05/27 clinically improved , with decrease in WBC. low grade fever persists, but expect resolution soon blood cx with proteus and urine cx with E coli and proteus - d/W Dr. Roca, switch to cefaozlin q 8h - follow repeat blood cx . ( NGTD) - US of L kidney with no perinephric bleed - No evidence of DIC - plan for a stent placement once clinically improved - monitor fever curve 2- SOB : due to pulm edema form fluid resuscitation. cxray better - dose of lasix today - avoid more IVF now 3- ERIN : due to volume depletion, sepsis , and obstructin . resolved monitor 4-SQ heparin for DVT px CCT 30 min
[2017-05-29] MEDS: CEFAZOLIN 2 GM/D5W 2 GM/50 ML ML IVPB SCH (20:00)
[2017-05-29] MEDS ORDERED: guaiFENesin/D-METHORPHAN HB 10 ML UNIT-DOSE CUPS PO PRN (21:21)
[2017-05-29] MEDS: CHLORHEXIDINE GLUCONATE 4% CLEANSER FOR DECOLONIZATION TP SCH (22:33)
[2017-05-30] MEDS: CEFAZOLIN 2 GM/D5W 2 GM/50 ML ML IVPB SCH ×3 (02:15→19:01)
[2017-05-30 05:53] LABS: HEMOGLOBIN 11.9 GM/dL (10.7-15.3); MCH 31.1 pg (25.7-33.7); MCHC 34.1 g/dl (32.0-36.0); MEAN CELL VOLUME 91.4 fl (80-96); MEAN PLT VOLUME 8.9 fl (7.5-11.1); PLATELET COUNT 204 K/MM3 (134-434); RBC 3.83 M/mm3 (3.60-5.2); RDW 13.8 % (11.6-15.6); WHITE BLOOD COUNT 11.7 K/mm3 (4.0-10.0)
[2017-05-30 06:14] LABS: ALBUMIN 1.9 g/dl (3.4-5.0); ALK PHOS 103 U/L (45-117); ANION GAP 9 (8-16); BILIRUBIN,TOTAL 0.4 mg/dL (0.2-1.0); BLOOD UREA NITROGEN 14 mg/dL (7-18); CALCIUM 8.2 mg/dL (8.5-10.1); CHLORIDE 103 mmol/L (98-107); CO2 28 mmol/L (21-32); CREATININE 0.8 mg/dL (0.55-1.02); GLUCOSE,RANDOM 85 mg/dL (74-106); PHOSPHOROUS 2.4 mg/dL (2.5-4.9); POTASSIUM 3.6 mmol/L (3.5-5.1); SGOT/AST 15 U/L (15-37); SGPT/ALT 19 U/L (12-78); SODIUM 140 mmol/L (136-145); TOT PROT 5.7 g/dl (6.4-8.2)
--- NOTE | 2017-05-30 06:41 | PN ---
Progress Note, Physician Chief Complaint: ID ICU follow up for this young female with Proteus bacteremia and urosepsis. URinary obstruction with placement of left nephrostomy tube Currently on Cefazolin Temps are down Difficult night per nursing staff couphing and needing Venti mask at one point now nasal cannula - Current Medication List Current Medications: Active Medications Acetaminophen (Tylenol -) 650 mg PO Q4H PRN PRN Reason: FEVER Last Admin: 05/29/17 20:16 Dose: 650 mg Chlorhexidine Gluconate (Hibiclens For Decolonization -) 1 applic TP HS [facility] Last Admin: 05/29/17 22:33 Dose: 1 applic Guaifenesin (Robitussin Dm -) 10 ml PO Q6H PRN PRN Reason: COUGH Heparin Sodium (Porcine) (Heparin -) 5,000 unit SQ TID [facility] Last Admin: 05/29/17 22:28 Dose: 5,000 unit Cefazolin Sodium/Dextrose (Ancef 2 Gm Premixed Ivpb -) 2 gm in 50 mls @ 100 mls /hr IVPB Q8H-IV [facility] Last Admin: 05/30/17 02:15 Dose: 100 mls/hr Morphine Sulfate (Morphine Injection -) 2 mg IVPUSH Q4H PRN PRN Reason: PAIN LEVEL 6-10 Last Admin: 05/29/17 21:23 Dose: 2 mg Mupirocin (Bactroban Ointment (For Decolonization) -) 1 applic NS BID [facility] Stop: 06/01/17 09:59 Last Admin: 05/29/17 22:32 Dose: 1 applic Ondansetron HCl (Zofran -) 4 mg PO Q8H PRN PRN Reason: NAUSEA - Objective Vital Signs: Vital Signs Temperature 99 F 05/30/17 02:00 Pulse Rate 118 H 05/30/17 04:00 Respiratory Rate 20 05/30/17 04:00 Blood Pressure 121/86 05/30/17 04:00 O2 Sat by Pulse Oximetry (%) 96 05/29/17 20:36 Constitutional: Yes: Mild Distress HENT: Yes: WNL, Atraumatic Neck: Yes: WNL, Supple Cardiovascular: Yes: Tachycardia, S1, S2. No: Murmur Respiratory: Yes: WNL, Regular, CTA Bilaterally, Diminished, Rales Gastrointestinal: Yes: WNL, Normal Bowel Sounds, Soft, Other (left CVAT). No: Tenderness, Tenderness, Rebound Labs: CBC, BMP 05/30/17 05:30 05/30/17 05:30 INR, PTT INR 1.67 (0.82-1.09) H 05/28/17 08:20 Fibrinogen 611.0 mg/dL (238-498) H 05/28/17 08:20 Problem List - Problems (1) Gram-negative bacteremia Code(s): R78.81 - BACTEREMIA (2) Left ureteral stone Code(s): N20.1 - CALCULUS OF URETER (3) Sepsis Code(s): A41.9 - SEPSIS, UNSPECIFIED ORGANISM (4) UTI (urinary tract infection) Code(s): N39.0 - URINARY TRACT INFECTION, SITE NOT SPECIFIED Assessment/Plan Microbiology 05/27/17 15:30 Urine - Urine Nephrostomy Tube Left Urine Culture - Final Proteus Mirabilis 05/27/17 06:00 Urine - Urine Clean Catch Urine Culture - Final Escherichia Coli Proteus Mirabilis 05/27/17 05:26 Blood - Peripheral Venous Blood Culture - Final Proteus Mirabilis 05/27/17 05:26 Blood - Peripheral Venous Blood Culture - Final Proteus Mirabilis Laboratory Tests 05/27/17 05/30/17 05/30/17 01:39 05:30 05:30 WBC 44.5 H* D 11.7 H D Hgb 11.9 Plt Count 204 BUN 14 Creatinine 0.8 Assessment Sepsis syndrome Proteus bacteremia Nephrolithiasis Fluid overload Plan Continue current antibiotic Would benefit by additional diuretic ZAY Champagne MD ICU care 35 minutes
[2017-05-30] MEDS: HEPARIN NA (PORCINE) 5,000 UNITS/ML 1ML VIAL SQ SCH ×3 (07:00→21:28)
--- NOTE | 2017-05-30 07:53 | PN ---
Physical Exam: SUBJECTIVE: Pt last night had increased fever spikes throughout the night. Otherwise no other acute events noted. No new complaints today. OBJECTIVE: Vital Signs Period Temp Pulse Resp BP Sys/Lambert Pulse Ox Last 24 Hr 99 F-100.6 F 112-128 20-28 102-128/58-90 96-96 GENERAL: improved compared to yesterday with less tachypnea, awake, alert HEENT: NC/AT, slight scleral injections, EMMANUEL, No JVD, dry mucosa noted LUNGS: Diminished breath sounds posteriorly at the bases and some rhonchi, no wheezes, no accessory muscle use. HEART: Tachycardic with regular rhythm, S1, S2 without murmur ABDOMEN: Soft, nontender, nondistended, normoactive bowel sounds, no guarding. BACK: Tattoos noted, L nephrostomy tube with clear-yellow urine in collection bag quarter full EXTREMITIES: 2+ DP pulses, warm, well-perfused, no edema. SKIN: Warm, dry, no rashes or lesions noted Laboratory Results - last 24 hr 05/30/17 05/30/17 05:30 05:30 WBC 11.7 H D RBC 3.83 Hgb 11.9 Hct 35.0 MCV 91.4 MCH 31.1 MCHC 34.1 RDW 13.8 Plt Count 204 MPV 8.9 Sodium 140 Potassium 3.6 Chloride 103 Carbon Dioxide 28 Anion Gap 9 BUN 14 Creatinine 0.8 Creat Clearance w eGFR > 60 Random Glucose 85 Calcium 8.2 L Phosphorus 2.4 L Magnesium 2.0 Total Bilirubin 0.4 D AST 15 ALT 19 Alkaline Phosphatase 103 Total Protein 5.7 L Albumin 1.9 L Active Medications Generic Name Dose Route Start Last Admin Trade Name Freq PRN Reason Stop Dose Admin Acetaminophen 650 mg 05/29/17 08:18 05/29/17 20:16 Tylenol - PO 650 mg Q4H PRN Administration FEVER Chlorhexidine Gluconate 1 applic 05/27/17 22:00 05/29/17 22:33 Hibiclens For Decolonization - TP 1 applic HS SHARDA Administration Guaifenesin 10 ml 05/29/17 21:21 Robitussin Dm - PO Q6H PRN COUGH Heparin Sodium (Porcine) 5,000 unit 05/28/17 14:00 05/29/17 22:28 Heparin - SQ 5,000 unit TID SHARDA Administration Cefazolin Sodium/Dextrose 2 gm in 50 mls @ 100 mls/hr 05/29/17 18:00 02:15 Ancef 2 Gm Premixed Ivpb - IVPB 100 mls/hr Q8H-IV SHARDA Administration Morphine Sulfate 2 mg 05/27/17 19:12 05/29/17 21:23 Morphine Injection - IVPUSH 2 mg Q4H PRN Administration PAIN LEVEL 6-10 Mupirocin 1 applic 05/27/17 10:00 05/29/17 22:32 Bactroban Ointment (For Decolonization) - NS 06/01/17 09:59 1 applic BID SHARDA Administration Ondansetron HCl 4 mg 05/27/17 19:12 Zofran - PO Q8H PRN NAUSEA ASSESSMENT/PLAN: Neuro: Neurologically intact Respiratory: No respiratory distress --CXR today shows improved yet still present effusions --Lasix 20mg IVP now and 1600h --Will order echo for assessment of fluid retention in a young patient --Encourage incentive spirometer to decrease risk of compressive atelectasis and post-obstructive PNA Cardiovascular: Previous hypotension --Resolved --No pressors previously needed --Would be weary to start fluids; however can bolus as needed ID UTI 2/2 to obstructive nephrolithiasis with Gram Negative Bacteremia --05/28 Cultures showing G- bacilli --Repeat peripheral blood cultures today --Sensitivities for urine and blood cultures in today --Meropenem changed to Ancef 2gm q8h (overall abx day 4) --WBC further normalizing --ID on case --CRP ordered --Continues to spike fevers however overall max is decreasing --Continue Tylenol 650mg q6h Urology Obstructive uropathy --s/p nephrostomy tube in place --Urology on board however will deal with stone once infection resolved --Will attempt to recontact in the setting of improving fevers and normalizing white count --Would rather have discussion on further intervention soon rather than later in order to avoid bacteria seeding of stone --Continue pain control Morphine 2mg q4h FEN: Fluids: None currently Electrolyte abnormalities: HypoPhos (repleted) Nutrition: Regular diet PPX: DVT - Heparin 5000 SQ TID Deconditioning - OOB to chair and activity as tolerated Dispo: Continue ICU monitoring Case discussed with Dr. Elieser Duckworth, DO - IM PGY-1 Visit type - Emergency Visit Emergency Visit: No - New Patient This patient is new to me today: No - Critical Care Critical Care patient: Yes Total Critical Care Time (in minutes): 35 Critical Care Statement: The care of this patient involved high complexity decision making to prevent further life threatening deterioration of the patient 's condition and/or to evaluate & treat vital organ system(s) failure or risk of failure.
[2017-05-30] MEDS ORDERED: NAPH,MB-DB/K PH,MBDB POWDER PACKET PO ONE (08:35)
--- NOTE | 2017-05-30 08:38 | PN ---
Physical Exam: SUBJECTIVE: Patient seen and examined Overnight, patient was coughing and short of breath requiring venti mask, but improved this morning. She feels better today. She continues to have fever overnight. Denies chills, chest pain, abdominal pain, n/v/d/c. OBJECTIVE: Vital Signs Period Temp Pulse Resp BP Sys/Lambert Pulse Ox Last 24 Hr 99 F-100.6 F 112-119 20-26 102-127/58-86 96-96 GENERAL: The patient is awake, alert, and fully oriented, in mild distress. HEAD: Normal with no signs of trauma. EYES: PERRL, extraocular movements intact, sclera anicteric, conjunctiva clear. No ptosis. ENT: Oropharynx clear without exudates, moist mucous membranes. NECK: Trachea midline, full range of motion, supple. LUNGS: Breath sounds equal, clear to auscultation bilaterally, no wheezes, no crackles, no accessory muscle use. Decreased breath sounds at bases HEART: Tachycardic, regular rhythm, S1, S2 without murmur, rub or gallop. ABDOMEN: Soft, diffuse abdominal tenderness, mild L CVA tenderness, nondistended , normoactive bowel sounds, no guarding, no rebound, no hepatosplenomegaly, no masses. L nephrostomy in place-- draining clear yellow urine. c/d/i dressing EXTREMITIES: 2+ pulses, warm, well-perfused, no edema. NEUROLOGICAL: Cranial nerves II through XII grossly intact. Normal speech, gait not observed. PSYCH: Normal mood, normal affect. SKIN: Warm, dry, normal turgor, no rashes or lesions noted : Haas in place Laboratory Results - last 24 hr 05/30/17 05/30/17 05/30/17 05:30 05:30 05:30 WBC 11.7 H D RBC 3.83 Hgb 11.9 Hct 35.0 MCV 91.4 MCH 31.1 MCHC 34.1 RDW 13.8 Plt Count 204 MPV 8.9 Sodium 140 Potassium 3.6 Chloride 103 Carbon Dioxide 28 Anion Gap 9 BUN 14 Creatinine 0.8 Creat Clearance w eGFR > 60 Random Glucose 85 Calcium 8.2 L Phosphorus 2.4 L Magnesium 2.0 Total Bilirubin 0.4 D AST 15 ALT 19 Alkaline Phosphatase 103 C-Reactive Protein 22.3 H Total Protein 5.7 L Albumin 1.9 L Active Medications Generic Name Dose Route Start Last Admin Trade Name Freq PRN Reason Stop Dose Admin Acetaminophen 650 mg 05/29/17 08:18 05/29/17 20:16 Tylenol - PO 650 mg Q4H PRN Administration FEVER Chlorhexidine Gluconate 1 applic 05/27/17 22:00 05/29/17 22:33 Hibiclens For Decolonization - TP 1 applic HS SHARDA Administration Guaifenesin 10 ml 05/29/17 21:21 Robitussin Dm - PO Q6H PRN COUGH Heparin Sodium (Porcine) 5,000 unit 05/28/17 14:00 05/29/17 22:28 Heparin - SQ 5,000 unit TID SHARDA Administration Cefazolin Sodium/Dextrose 2 gm in 50 mls @ 100 mls/hr 05/29/17 18:00 02:15 Ancef 2 Gm Premixed Ivpb - IVPB 100 mls/hr Q8H-IV SHARDA Administration Morphine Sulfate 2 mg 05/27/17 19:12 05/29/17 21:23 Morphine Injection - IVPUSH 2 mg Q4H PRN Administration PAIN LEVEL 6-10 Mupirocin 1 applic 05/27/17 10:00 05/29/17 22:32 Bactroban Ointment (For Decolonization) - NS 06/01/17 09:59 1 applic BID SHARDA Administration Ondansetron HCl 4 mg 05/27/17 19:12 Zofran - PO Q8H PRN NAUSEA Microbiology 05/28/17 05:25 Blood - Peripheral Venous Blood Culture - Preliminary Non Lactose Fermenting Gnb 05/27/17 06:00 Urine - Urine Clean Catch Urine Culture - Final Escherichia Coli Proteus Mirabilis 05/27/17 05:26 Blood - Peripheral Venous Blood Culture - Final Proteus Mirabilis 05/27/17 05:26 Blood - Peripheral Venous Blood Culture - Final Proteus Mirabilis 05/27/17 15:30 Urine - Urine Nephrostomy Tube Left Urine Culture - Final Proteus Mirabilis ASSESSMENT/PLAN: 26 year old female with past medical history of nephrolithiasis, recurrent UTI, and previous bacteremia presented with left flank pain and found to be in severe sepsis secondary to pyelonephritis with left mid/distal stone #Severe sepsis 2/2 to pyelonephritis with stone -Continue Ancef 2g q8h. Day 4 of antibiotics -BCx: proteus, UCx: proteus and e coli. Repeat bcx- Proteus -Repeat BCx pending -Left nephrostomy placed, can place stent once patient is more medically stable -Tylenol for fever -Morphine for pain -monitor fevers #Acute respiratory distress -1 dose lasix 20 mg and 1 dose of lasix 40 mg iv given today -Hold IVF -Echocardiogram pending #ERIN, resolved -Hold IVF -monitor Cr -Avoid nephrotoxic medications #FEN/GI -no ivf -monitor bmp -regular diet #PPx -heparin 5000 u sq tid Visit type - Emergency Visit Emergency Visit: Yes ED Registration Date: 05/27/17 Care time: The patient presented to the Emergency Department on the above date and was hospitalized for further evaluation of their emergent condition. - New Patient This patient is new to me today: No - Critical Care Critical Care patient: Yes Total Critical Care Time (in minutes): 36 Critical Care Statement: The care of this patient involved high complexity decision making to prevent further life threatening deterioration of the patient 's condition and/or to evaluate & treat vital organ system(s) failure or risk of failure.
[2017-05-30] MEDS: ACETAMINOPHEN 325 MG TABLET (FP) PO PRN ×3 (09:00→21:29)
[2017-05-30] MEDS: MUPIROCIN 2% TOPICAL OINTMENT FOR DECOLONIZATION NS SCH ×2 (09:23→22:00)
--- NOTE | 2017-05-30 10:49 | EKG ---
Test Reason : Blood Pressure : / mmHG Vent. Rate : 115 BPM Atrial Rate : 115 BPM P-R Int : 116 ms QRS Dur : 082 ms QT Int : 292 ms P-R-T Axes : 041 055 042 degrees QTc Int : 403 ms SINUS TACHYCARDIA OTHERWISE NORMAL ECG WHEN COMPARED WITH ECG OF 27-MAY-2017 17:25, NO SIGNIFICANT CHANGE WAS FOUND Confirmed by LISA JEFFERSON MD ([id number]) on 05/30/2017 10:49:19 AM Referred By: Emma NASSAR Confirmed By:LISA JEFFERSON MD
[2017-05-30] MEDS ORDERED: FUROSEMIDE 40 MG/4 ML INJECTABLE VIAL IVPUSH ONE ×3 (11:30→16:00)
--- NOTE | 2017-05-30 11:43 | PN ---
Teaching Attending Note Name of Resident: Robi Duckworth ATTENDING PHYSICIAN STATEMENT I saw and evaluated the patient. I reviewed the resident's note and discussed the case with the resident. I agree with the resident's findings and plan as documented. SUBJECTIVE: Pt seen and examined in the ICU. Febrile this AM. Less pain and breathing better. OBJECTIVE: Last Vital Signs Temp Pulse Resp BP Pulse Ox 101.9 F H 126 H 20 120/65 96 05/30/17 08:00 05/30/17 08:00 05/30/17 08:00 05/30/17 08:00 05/30/17 09:00 Intake & Output 05/27/17 05/28/17 05/29/17 05/30/17 23:59 23:59 23:59 23:59 Intake Total 960 740 Output Total 3750 3600 800 Balance -2790 -2860 -800 Weight 79.1 kg 78.653 kg Gen: less tachypneic Heart: tachycardic, regular Lung: decreased breath sounds at the bases, scattered rhonchi Abd: soft, nontender Ext: no edema CBC, BMP 05/30/17 05:30 05/30/17 05:30 Active Medications Acetaminophen (Tylenol -) 650 mg PO Q4H PRN PRN Reason: FEVER Last Admin: 05/30/17 09:00 Dose: 650 mg Chlorhexidine Gluconate (Hibiclens For Decolonization -) 1 applic TP HS [facility] Last Admin: 05/29/17 22:33 Dose: 1 applic Guaifenesin (Robitussin Dm -) 10 ml PO Q6H PRN PRN Reason: COUGH Heparin Sodium (Porcine) (Heparin -) 5,000 unit SQ TID [facility] Last Admin: 05/30/17 07:00 Dose: Not Given Cefazolin Sodium/Dextrose (Ancef 2 Gm Premixed Ivpb -) 2 gm in 50 mls @ 100 mls /hr IVPB Q8H-IV SHARDA Last Admin: 05/30/17 09:24 Dose: 100 mls/hr Morphine Sulfate (Morphine Injection -) 2 mg IVPUSH Q4H PRN PRN Reason: PAIN LEVEL 6-10 Last Admin: 05/29/17 21:23 Dose: 2 mg Mupirocin (Bactroban Ointment (For Decolonization) -) 1 applic NS BID [facility] Stop: 06/01/17 09:59 Last Admin: 05/30/17 09:23 Dose: 1 applic Ondansetron HCl (Zofran -) 4 mg PO Q8H PRN PRN Reason: NAUSEA ASSESSMENT AND PLAN: UTI Proteus/E Coli Bacteremia Nephrolithiasis/Hydronephrosis/Obstructive Uropathy s/p Left Nephrostomy tube placement Sepsis Lactic Acidosis Volume Overload - continue antibiotics - pain control - lasix BID today - monitor urine output, creatinine - replete lytes - monitor CXR - O2 to keep SpO2 >90% - urology f/u - DVT prophylaxis - continue ICU monitoring
[2017-05-30] MEDS: MORPHINE SULFATE 10 MG/1 ML *VIAL IVPUSH PRN (14:24)
--- NOTE | 2017-05-30 16:01 | PN ---
Teaching Attending Note Name of Resident: Misbah Wei ATTENDING PHYSICIAN STATEMENT I saw and evaluated the patient. I reviewed the resident's note and discussed the case with the resident. I agree with the resident's findings and plan as documented. SUBJECTIVE: Patient is feeling better today, continues to have fever. OBJECTIVE: Vital Signs Temperature 101.9 F H 05/30/17 08:00 Pulse Rate 126 H 05/30/17 08:00 Respiratory Rate 20 05/30/17 08:00 Blood Pressure 120/65 05/30/17 08:00 O2 Sat by Pulse Oximetry (%) 96 05/30/17 09:00 CBCD WBC 11.7 K/mm3 (4.0-10.0) H D 05/30/17 05:30 RBC 3.83 M/mm3 (3.60-5.2) 05/30/17 05:30 Hgb 11.9 GM/dL (10.7-15.3) 05/30/17 05:30 Hct 35.0 % (32.4-45.2) 05/30/17 05:30 MCV 91.4 fl (80-96) 05/30/17 05:30 MCHC 34.1 g/dl (32.0-36.0) 05/30/17 05:30 RDW 13.8 % (11.6-15.6) 05/30/17 05:30 Plt Count 204 K/MM3 (134-434) 05/30/17 05:30 MPV 8.9 fl (7.5-11.1) 05/30/17 05:30 CMP Sodium 140 mmol/L (136-145) 05/30/17 05:30 Potassium 3.6 mmol/L (3.5-5.1) 05/30/17 05:30 Chloride 103 mmol/L (98-107) 05/30/17 05:30 Carbon Dioxide 28 mmol/L (21-32) 05/30/17 05:30 Anion Gap 9 (8-16) 05/30/17 05:30 BUN 14 mg/dL (7-18) 05/30/17 05:30 Creatinine 0.8 mg/dL (0.55-1.02) 05/30/17 05:30 Creat Clearance w eGFR > 60 (>60) 05/30/17 05:30 Random Glucose 85 mg/dL (74-106) 05/30/17 05:30 Calcium 8.2 mg/dL (8.5-10.1) L 05/30/17 05:30 Total Bilirubin 0.4 mg/dL (0.2-1.0) D 05/30/17 05:30 AST 15 U/L (15-37) 05/30/17 05:30 ALT 19 U/L (12-78) 05/30/17 05:30 Alkaline Phosphatase 103 U/L (45-117) 05/30/17 05:30 Total Protein 5.7 g/dl (6.4-8.2) L 05/30/17 05:30 Albumin 1.9 g/dl (3.4-5.0) L 05/30/17 05:30 Current Medications Generic Name Dose Route Start Last Admin Trade Name Freq PRN Reason Stop Dose Admin Acetaminophen 650 mg 05/29/17 08:18 05/30/17 14:24 Tylenol - PO 650 mg Q4H PRN Administration FEVER Chlorhexidine Gluconate 1 applic 05/27/17 22:00 05/29/17 22:33 Hibiclens For Decolonization - TP 1 applic HS SHARDA Administration Furosemide 20 mg 05/30/17 16:00 Lasix Injection - IVPUSH 05/30/17 16:01 ONCE ONE Guaifenesin 10 ml 05/29/17 21:21 05/30/17 14:24 Robitussin Dm - PO 10 ml Q6H PRN Administration COUGH Heparin Sodium (Porcine) 5,000 unit 05/28/17 14:00 05/30/17 07:00 Heparin - SQ Not Given TID SHARDA Cefazolin Sodium/Dextrose 2 gm in 50 mls @ 100 mls/hr 05/29/17 18:00 09:24 Ancef 2 Gm Premixed Ivpb - IVPB 100 mls/hr Q8H-IV SHARDA Administration Morphine Sulfate 2 mg 05/27/17 19:12 05/30/17 14:24 Morphine Injection - IVPUSH 2 mg Q4H PRN Administration PAIN LEVEL 6-10 Mupirocin 1 applic 05/27/17 10:00 05/30/17 09:23 Bactroban Ointment (For Decolonization) - NS 06/01/17 09:59 1 applic BID SHARDA Administration Ondansetron HCl 4 mg 05/27/17 19:12 Zofran - PO Q8H PRN NAUSEA Home Medications Medication Instructions Recorded Ibuprofen [Motrin -] 600 mg PO TID #21 tablet 05/12/17 Oxycodone HCl/Acetaminophen 1 tab PO Q6H PRN #12 tablet MDD 4 05/12/17 [Percocet 5-325 mg Tablet] tabs PE: NAD , lying in bed comfortably CHEST: decreased BS at basis Heart; S1S2 positive abdomen: soft, NT Ext:pulses are positive. ASSESSMENT AND PLAN: Patient is a 26 y/o lady with h/o nephrolithiasis , recurrent UTI/pyelo, and bacteremias 3 years ago who presented with fever chills and flank pain and was found to have sepsis due to having L pyelonephritis # Severe Sepsis with bacteremia,Left pyelonephritis with obstructing L ureteral stone . s/p L Nephrostomy 05/27 ON IV antibiotiv continue ANcef continue as per ID. #SOB improved due to having pulm edema. improving ,given another dose of lasix today , dc IVF for now #ERIN : due to volume depletion, sepsis , and obstructin . resolved SQ heparin for DVT px
[2017-05-30] MEDS: CHLORHEXIDINE GLUCONATE 4% CLEANSER FOR DECOLONIZATION TP SCH (21:28)
[2017-05-31] MEDS: CEFAZOLIN 2 GM/D5W 2 GM/50 ML ML IVPB SCH ×3 (02:18→17:13)
[2017-05-31] MEDS: MORPHINE SULFATE 10 MG/1 ML *VIAL IVPUSH PRN ×2 (03:24→08:53)
[2017-05-31 05:44] LABS: HEMATOCRIT 33.6 % (32.4-45.2); HEMOGLOBIN 11.7 GM/dL (10.7-15.3); MCH 31.3 pg (25.7-33.7); MCHC 34.8 g/dl (32.0-36.0); MEAN CELL VOLUME 90.1 fl (80-96); MEAN PLT VOLUME 8.6 fl (7.5-11.1); PLATELET COUNT 195 K/MM3 (134-434); RBC 3.74 M/mm3 (3.60-5.2); RDW 13.4 % (11.6-15.6); WHITE BLOOD COUNT 12.5 K/mm3 (4.0-10.0)
[2017-05-31 06:08] LABS: CHLORIDE 98 mmol/L (98-107); POTASSIUM 3.2 mmol/L (3.5-5.1); SODIUM 138 mmol/L (136-145)
[2017-05-31 06:12] LABS: ANION GAP 11 (8-16); BLOOD UREA NITROGEN 14 mg/dL (7-18); CALCIUM 7.8 mg/dL (8.5-10.1); CO2 29 mmol/L (21-32); CREATININE 0.6 mg/dL (0.55-1.02); GLUCOSE,RANDOM 81 mg/dL (74-106); MAGNESIUM 2.2 mg/dL (1.8-2.4); PHOSPHOROUS 2.8 mg/dL (2.5-4.9)
[2017-05-31] MEDS: HEPARIN NA (PORCINE) 5,000 UNITS/ML 1ML VIAL SQ SCH ×3 (06:33→21:07)
--- NOTE | 2017-05-31 07:09 | PN ---
Progress Note, Physician Chief Complaint: ID Improvement continues Cefazolin now - Current Medication List Current Medications: Active Medications Acetaminophen (Tylenol -) 650 mg PO Q4H PRN PRN Reason: FEVER Last Admin: 05/30/17 21:29 Dose: 650 mg Chlorhexidine Gluconate (Hibiclens For Decolonization -) 1 applic TP HS [facility] Last Admin: 05/30/17 21:28 Dose: 1 applic Guaifenesin (Robitussin Dm -) 10 ml PO Q6H PRN PRN Reason: COUGH Last Admin: 05/30/17 14:24 Dose: 10 ml Heparin Sodium (Porcine) (Heparin -) 5,000 unit SQ TID [facility] Last Admin: 05/31/17 06:33 Dose: 5,000 unit Cefazolin Sodium/Dextrose (Ancef 2 Gm Premixed Ivpb -) 2 gm in 50 mls @ 100 mls /hr IVPB Q8H-IV SHARDA Last Admin: 05/31/17 02:18 Dose: 100 mls/hr Morphine Sulfate (Morphine Injection -) 2 mg IVPUSH Q4H PRN PRN Reason: PAIN LEVEL 6-10 Last Admin: 05/31/17 03:24 Dose: 2 mg Mupirocin (Bactroban Ointment (For Decolonization) -) 1 applic NS BID [facility] Stop: 06/01/17 09:59 Last Admin: 05/30/17 22:00 Dose: 1 applic Ondansetron HCl (Zofran -) 4 mg PO Q8H PRN PRN Reason: NAUSEA - Objective Vital Signs: Vital Signs Temperature 97.5 F L 05/30/17 20:00 Pulse Rate 96 H 05/31/17 02:00 Respiratory Rate 22 05/31/17 02:00 Blood Pressure 112/57 05/31/17 02:00 O2 Sat by Pulse Oximetry (%) 96 05/30/17 21:00 Constitutional: Yes: Well Nourished, No Distress Neck: Yes: WNL, Supple Cardiovascular: Yes: Tachycardia, S1, S2 Respiratory: Yes: WNL, Regular, CTA Bilaterally Gastrointestinal: Yes: WNL, Normal Bowel Sounds, Soft. No: Tenderness, Tenderness, Epigastrium Edema: No Labs: CBC, BMP 05/31/17 05:30 05/31/17 05:30 INR, PTT INR 1.67 (0.82-1.09) H 05/28/17 08:20 Fibrinogen 611.0 mg/dL (238-498) H 05/28/17 08:20 Problem List - Problems (1) Gram-negative bacteremia Code(s): R78.81 - BACTEREMIA (2) Left ureteral stone Code(s): N20.1 - CALCULUS OF URETER (3) Sepsis Code(s): A41.9 - SEPSIS, UNSPECIFIED ORGANISM (4) UTI (urinary tract infection) Code(s): N39.0 - URINARY TRACT INFECTION, SITE NOT SPECIFIED Assessment/Plan Microbiology 05/27/17 15:30 Urine - Urine Nephrostomy Tube Left Urine Culture - Final Proteus Mirabilis 05/27/17 06:00 Urine - Urine Clean Catch Urine Culture - Final Escherichia Coli Proteus Mirabilis 05/27/17 05:26 Blood - Peripheral Venous Blood Culture - Final Proteus Mirabilis 05/27/17 05:26 Blood - Peripheral Venous Blood Culture - Final Proteus Mirabilis 05/28/17 05:25 Blood - Peripheral Venous Blood Culture - Preliminary Non Lactose Fermenting Gnb Laboratory Tests 05/30/17 05/30/17 05/31/17 05:30 05:30 05:30 WBC 12.5 H Plt Count 195 BUN Creatinine C-Reactive Protein 22.3 H Albumin 1.9 L 05/31/17 05:30 WBC Plt Count BUN 14 Creatinine 0.6 C-Reactive Protein Albumin Assessment Proteus bacteremia with UTI. Improving post nephrostomy drainage Plan Out of bed to chair Continue antibiotics Vaginal suppos for suspected Erin vaginitis Mahi RIVAS
[2017-05-31] MEDS ORDERED: FLUCONAZOLE 100 MG TABLET (UD) PO ONE (07:10)
[2017-05-31] MEDS ORDERED: POTASSIUM CHLORIDE TABS 20 MEQ TABLET.ER (FP) PO ONE (08:09)
--- NOTE | 2017-05-31 08:58 | PN ---
Physical Exam: SUBJECTIVE: No acute events overnight. Pt has temp to 102 max this morning. Still complains of pain near L back and abdomen related to nephrostomy. OBJECTIVE: Vital Signs Period Temp Pulse Resp BP Sys/Lambert Pulse Ox Last 24 Hr 97.5 F-102 F 96-118 20-23 103-128/54-87 96-96 GENERAL: Marked improvement compared to yesterday, awake, alert, OOB in chair HEENT: NC/AT, EMMANUEL, No JVD LUNGS: Decreased breath sounds bibasillary (but improving), no wheezes, no accessory muscle use. HEART: Tachycardic with regular rhythm, S1, S2 without murmur ABDOMEN: Soft, nontender, nondistended, normoactive bowel sounds, no guarding. BACK: Tattoos noted, L nephrostomy tube with continued clear-yellow urine in collection bag EXTREMITIES: 2+ DP pulses, warm, well-perfused, no edema, no calf tenderness SKIN: Warm, dry, no rashes or lesions noted Laboratory Results - last 24 hr 05/31/17 05/31/17 05:30 05:30 WBC 12.5 H RBC 3.74 Hgb 11.7 Hct 33.6 MCV 90.1 MCH 31.3 MCHC 34.8 RDW 13.4 Plt Count 195 MPV 8.6 Sodium 138 Potassium 3.2 L Chloride 98 Carbon Dioxide 29 Anion Gap 11 BUN 14 Creatinine 0.6 Random Glucose 81 Calcium 7.8 L Phosphorus 2.8 Magnesium 2.2 Active Medications Generic Name Dose Route Start Last Admin Trade Name Freq PRN Reason Stop Dose Admin Acetaminophen 650 mg 05/29/17 08:18 05/30/17 21:29 Tylenol - PO 650 mg Q4H PRN Administration FEVER Chlorhexidine Gluconate 1 applic 05/27/17 22:00 05/30/17 21:28 Hibiclens For Decolonization - TP 1 applic HS SHARDA Administration Guaifenesin 10 ml 05/29/17 21:21 05/30/17 14:24 Robitussin Dm - PO 10 ml Q6H PRN Administration COUGH Heparin Sodium (Porcine) 5,000 unit 05/28/17 14:00 05/31/17 06:33 Heparin - SQ 5,000 unit TID SHARDA Administration Cefazolin Sodium/Dextrose 2 gm in 50 mls @ 100 mls/hr 05/29/17 18:00 02:18 Ancef 2 Gm Premixed Ivpb - IVPB 100 mls/hr Q8H-IV SHARDA Administration Miconazole Nitrate 100 mg 05/31/17 22:00 Monistat-7 Vaginal Suppository - PV 06/06/17 22:01 HS [facility] Morphine Sulfate 2 mg 05/27/17 19:12 05/31/17 08:53 Morphine Injection - IVPUSH 2 mg Q4H PRN Administration PAIN LEVEL 6-10 Mupirocin 1 applic 05/27/17 10:00 05/30/17 22:00 Bactroban Ointment (For Decolonization) - NS 06/01/17 09:59 1 applic BID SHARDA Administration Ondansetron HCl 4 mg 05/27/17 19:12 Zofran - PO Q8H PRN NAUSEA Polyethylene Glycol 17 gm 05/31/17 10:00 Miralax (For Daily Use) - PO BID SHARDA ASSESSMENT/PLAN: Neuro: Neurologically intact Respiratory: No respiratory distress --CXR today shows improved yet still present effusions --SBP <100 and would wait for another dose of lasix; most likely will begin to achieve fluid equilibrium --Echo shows no significant findings --Encourage incentive spirometer to decrease risk of compressive atelectasis and post-obstructive PNA Cardiovascular: Stable ID UTI 2/2 to obstructive nephrolithiasis with Gram Negative Bacteremia --Most recent blood cultures showing no growth at 24hrs --Ancef to continue --Fluconazole and vaginal suppositories started due to suspected hilaria infection --ID on case --Fevers persist and concern for possible seeding of bacteria on nephrolith --More controlled however than previous days Urology Obstructive uropathy --s/p nephrostomy tube in place --Urology on board however will deal with stone once infection resolved --Morphine 2mg q4h changed to Toradol today with lessening effectiveness of morphine to control pain --Cr stable after obstruction resolved FEN: Fluids: None currently Electrolyte abnormalities: Hypokalemia (repleted) Nutrition: Regular diet PPX: DVT - Heparin 5000 SQ TID Deconditioning - OOB to chair and activity as tolerated Dispo: Transfer to /S Case discussed with Dr. Elieser Duckworth, DO - IM PGY-1 Visit type - Emergency Visit Emergency Visit: No - New Patient This patient is new to me today: No - Critical Care Critical Care patient: No
[2017-05-31] MEDS ORDERED: POLYETHYLENE GLYCOL 3350 119 GM BTL PO SCH (10:00)
[2017-05-31] MEDS ORDERED: FLUCONAZOLE 150 MG TABLET PO ONE (10:30)
--- NOTE | 2017-05-31 11:30 | PN ---
Teaching Attending Note Name of Resident: Robi Duckworth ATTENDING PHYSICIAN STATEMENT I saw and evaluated the patient. I reviewed the resident's note and discussed the case with the resident. I agree with the resident's findings and plan as documented. SUBJECTIVE: Pt seen and examined in the ICU. Breathing improving. Diuresed well with lasix yesterday. Febrile overnight. Still with left flank pain. OBJECTIVE: Last Vital Signs Temp Pulse Resp BP Pulse Ox 98.8 F 102 H 18 96/66 96 05/31/17 08:00 05/31/17 10:00 05/31/17 10:00 05/31/17 10:00 05/31/17 08:22 Intake & Output 05/28/17 05/29/17 05/30/17 05/31/17 23:59 23:59 23:59 23:59 Intake Total 960 740 440 Output Total 3750 3600 5550 1200 Balance -2790 -2860 -5550 -760 Weight 79.1 kg 78.653 kg 77.337 kg Gen: less tachypneic, less toxic appearing Heart: tachycardic, regular Lung: decreased breath sounds at the bases Abd: soft, left flank tenderness Ext: no edema CBC, BMP 05/31/17 05:30 05/31/17 05:30 Active Medications Acetaminophen (Tylenol -) 650 mg PO Q4H PRN PRN Reason: FEVER Last Admin: 05/30/17 21:29 Dose: 650 mg Chlorhexidine Gluconate (Hibiclens For Decolonization -) 1 applic TP HS SHARDA Last Admin: 05/30/17 21:28 Dose: 1 applic Docusate Sodium (Colace -) 100 mg PO TID SHARDA Guaifenesin (Robitussin Dm -) 10 ml PO Q6H PRN PRN Reason: COUGH Last Admin: 05/30/17 14:24 Dose: 10 ml Heparin Sodium (Porcine) (Heparin -) 5,000 unit SQ TID SHARDA Last Admin: 05/31/17 06:33 Dose: 5,000 unit Cefazolin Sodium/Dextrose (Ancef 2 Gm Premixed Ivpb -) 2 gm in 50 mls @ 100 mls /hr IVPB Q8H-IV SHARDA Last Admin: 05/31/17 09:39 Dose: 100 mls/hr Miconazole Nitrate (Monistat-7 Vaginal Suppository -) 100 mg PV HS [facility] Stop: 06/06/17 22:01 Morphine Sulfate (Morphine Injection -) 2 mg IVPUSH Q4H PRN PRN Reason: PAIN LEVEL 6-10 Last Admin: 05/31/17 08:53 Dose: 2 mg Mupirocin (Bactroban Ointment (For Decolonization) -) 1 applic NS BID [facility] Stop: 06/01/17 09:59 Last Admin: 05/30/17 22:00 Dose: 1 applic Ondansetron HCl (Zofran -) 4 mg PO Q8H PRN PRN Reason: NAUSEA Polyethylene Glycol (Miralax (For Daily Use) -) 17 gm PO BID [facility] Last Admin: 05/31/17 09:38 Dose: 17 grams ASSESSMENT AND PLAN: UTI Proteus/E Coli Bacteremia Nephrolithiasis/Hydronephrosis/Obstructive Uropathy s/p Left Nephrostomy tube placement Sepsis Lactic Acidosis Volume Overload - continue antibiotics - f/u pending cultures - pain control - continue lasix if BP tolerates - monitor urine output, creatinine - replete lytes - monitor CXR - O2 to keep SpO2 >90% - urology f/u - DVT prophylaxis
--- NOTE | 2017-05-31 12:10 | PN ---
<Misbah Wei - Last Filed: 05/31/17 16:13> Physical Exam: SUBJECTIVE: Patient seen and examined No acute events overnight. Patient feels better this morning. She continues to have pain at the nephrostomy site. She continues to spike fevers. Her breathing has improved. OBJECTIVE: Vital Signs Period Temp Pulse Resp BP Sys/Lambert Pulse Ox Last 24 Hr 97.5 F-102 F 96-118 18-23 92-128/57-87 96-96 GENERAL: The patient is awake, alert, and fully oriented, in no acute distress HEAD: Normal with no signs of trauma. EYES: PERRL, extraocular movements intact, sclera anicteric, conjunctiva clear. No ptosis. ENT: Oropharynx clear without exudates, moist mucous membranes. NECK: Trachea midline, full range of motion, supple. LUNGS: Breath sounds equal, clear to auscultation bilaterally, no wheezes, no crackles, no accessory muscle use. Mild decreased breath sounds at bases HEART: Tachycardic, regular rhythm, S1, S2 without murmur, rub or gallop. ABDOMEN: Soft, Abdominal tenderness improved, mild L CVA tenderness, nondistended, normoactive bowel sounds, no guarding, no rebound, no hepatosplenomegaly, no masses. L nephrostomy in place-- draining clear yellow urine. c/d/i dressing EXTREMITIES: 2+ pulses, warm, well-perfused, no edema. NEUROLOGICAL: Cranial nerves II through XII grossly intact. Normal speech, gait not observed. PSYCH: Normal mood, normal affect. SKIN: Warm, dry, normal turgor, no rashes or lesions noted : Haas in place Laboratory Results - last 24 hr 05/31/17 05/31/17 05:30 05:30 WBC 12.5 H RBC 3.74 Hgb 11.7 Hct 33.6 MCV 90.1 MCH 31.3 MCHC 34.8 RDW 13.4 Plt Count 195 MPV 8.6 Sodium 138 Potassium 3.2 L Chloride 98 Carbon Dioxide 29 Anion Gap 11 BUN 14 Creatinine 0.6 Random Glucose 81 Calcium 7.8 L Phosphorus 2.8 Magnesium 2.2 Active Medications Generic Name Dose Route Start Last Admin Trade Name Freq PRN Reason Stop Dose Admin Acetaminophen 650 mg 05/29/17 08:18 05/30/17 21:29 Tylenol - PO 650 mg Q4H PRN Administration FEVER Chlorhexidine Gluconate 1 applic 05/27/17 22:00 05/30/17 21:28 Hibiclens For Decolonization - TP 1 applic HS SHARDA Administration Docusate Sodium 100 mg 05/31/17 14:00 Colace - PO TID SHARDA Guaifenesin 10 ml 05/29/17 21:21 05/30/17 14:24 Robitussin Dm - PO 10 ml Q6H PRN Administration COUGH Heparin Sodium (Porcine) 5,000 unit 05/28/17 14:00 05/31/17 06:33 Heparin - SQ 5,000 unit TID SHARDA Administration Cefazolin Sodium/Dextrose 2 gm in 50 mls @ 100 mls/hr 05/29/17 18:00 09:39 Ancef 2 Gm Premixed Ivpb - IVPB 100 mls/hr Q8H-IV SHARDA Administration Ketorolac Tromethamine 30 mg 05/31/17 11:40 Toradol Injection - IVPUSH 06/05/17 11:39 Q6H PRN PAIN LEVEL 6-10 Miconazole Nitrate 100 mg 05/31/17 22:00 Monistat-7 Vaginal Suppository - PV 06/06/17 22:01 [facility] Mupirocin 1 applic 05/27/17 10:00 05/30/17 22:00 Bactroban Ointment (For Decolonization) - NS 06/01/17 09:59 1 applic BID SHARDA Administration Ondansetron HCl 4 mg 05/27/17 19:12 Zofran - PO Q8H PRN NAUSEA Polyethylene Glycol 17 gm 05/31/17 10:00 05/31/17 09:38 Miralax (For Daily Use) - PO 17 grams BID SHARDA Administration ASSESSMENT/PLAN: 26 year old female with past medical history of nephrolithiasis, recurrent UTI, and previous bacteremia presented with left flank pain and found to be in severe sepsis secondary to pyelonephritis with left mid/distal stone #Severe sepsis 2/2 to pyelonephritis with stone -Continue Ancef 2g q8h. Day 5 of antibiotics -BCx: proteus, UCx: proteus and e coli. Repeat bcx- Proteus -Repeat BCx pending (05/30) -Left nephrostomy placed, can place stent once patient is more medically stable -Tylenol for fever -Toradol for pain -monitor fevers -Miconazole for vaginal itching #Acute respiratory distress -Improving -Echo unremarkable -Hold IVF -Encourage incentive spirometer #ERIN, resolved -Hold IVF -monitor Cr -Avoid nephrotoxic medications #FEN/GI -no ivf -monitor bmp -regular diet #PPx -heparin 5000 u sq tid Dispo: transfer to m/s Visit type - Emergency Visit Emergency Visit: Yes ED Registration Date: 05/27/17 Care time: The patient presented to the Emergency Department on the above date and was hospitalized for further evaluation of their emergent condition. - New Patient This patient is new to me today: No - Critical Care Critical Care patient: Yes Total Critical Care Time (in minutes): 36 Critical Care Statement: The care of this patient involved high complexity decision making to prevent further life threatening deterioration of the patient 's condition and/or to evaluate & treat vital organ system(s) failure or risk of failure. <Boogie Oseguera - Last Filed: 05/31/17 18:21> Physical Exam: Patient seen and examined, Patient is feeling better today. NAD, no fever overnight. Vital Signs Temperature 99 F 05/31/17 14:00 Pulse Rate 98 H 05/31/17 14:00 Respiratory Rate 18 05/31/17 14:00 Blood Pressure 104/65 05/31/17 14:00 O2 Sat by Pulse Oximetry (%) 96 05/31/17 08:22 CBCD WBC 12.5 K/mm3 (4.0-10.0) H 05/31/17 05:30 RBC 3.74 M/mm3 (3.60-5.2) 05/31/17 05:30 Hgb 11.7 GM/dL (10.7-15.3) 05/31/17 05:30 Hct 33.6 % (32.4-45.2) 05/31/17 05:30 MCV 90.1 fl (80-96) 05/31/17 05:30 MCHC 34.8 g/dl (32.0-36.0) 05/31/17 05:30 RDW 13.4 % (11.6-15.6) 05/31/17 05:30 Plt Count 195 K/MM3 (134-434) 05/31/17 05:30 MPV 8.6 fl (7.5-11.1) 05/31/17 05:30 CMP Sodium 138 mmol/L (136-145) 05/31/17 05:30 Potassium 3.2 mmol/L (3.5-5.1) L 05/31/17 05:30 Chloride 98 mmol/L (98-107) 05/31/17 05:30 Carbon Dioxide 29 mmol/L (21-32) 05/31/17 05:30 Anion Gap 11 (8-16) 05/31/17 05:30 BUN 14 mg/dL (7-18) 05/31/17 05:30 Creatinine 0.6 mg/dL (0.55-1.02) 05/31/17 05:30 Creat Clearance w eGFR > 60 (>60) 05/30/17 05:30 Random Glucose 81 mg/dL (74-106) 05/31/17 05:30 Calcium 7.8 mg/dL (8.5-10.1) L 05/31/17 05:30 Total Bilirubin 0.4 mg/dL (0.2-1.0) D 05/30/17 05:30 AST 15 U/L (15-37) 05/30/17 05:30 ALT 19 U/L (12-78) 05/30/17 05:30 Alkaline Phosphatase 103 U/L (45-117) 05/30/17 05:30 Total Protein 5.7 g/dl (6.4-8.2) L 05/30/17 05:30 Albumin 1.9 g/dl (3.4-5.0) L 05/30/17 05:30 Current Medications Generic Name Dose Route Start Last Admin Trade Name Freq PRN Reason Stop Dose Admin Acetaminophen 650 mg 05/29/17 08:18 05/30/17 21:29 Tylenol - PO 650 mg Q4H PRN Administration FEVER Chlorhexidine Gluconate 1 applic 05/27/17 22:00 05/30/17 21:28 Hibiclens For Decolonization - TP 1 applic HS SHARDA Administration Docusate Sodium 100 mg 05/31/17 14:00 05/31/17 14:54 Colace - PO 100 mg TID SHARDA Administration Guaifenesin 10 ml 05/29/17 21:21 05/30/17 14:24 Robitussin Dm - PO 10 ml Q6H PRN Administration COUGH Heparin Sodium (Porcine) 5,000 unit 05/28/17 14:00 05/31/17 14:55 Heparin - SQ 5,000 unit TID SHARDA Administration Cefazolin Sodium/Dextrose 2 gm in 50 mls @ 100 mls/hr 05/29/17 18:00 17:13 Ancef 2 Gm Premixed Ivpb - IVPB 100 mls/hr Q8H-IV SHARDA Administration Ketorolac Tromethamine 30 mg 05/31/17 11:40 Toradol Injection - IVPUSH 06/05/17 11:39 Q6H PRN PAIN LEVEL 6-10 Miconazole Nitrate 100 mg 05/31/17 22:00 Monistat-7 Vaginal Suppository - PV 06/06/17 22:01 HS [facility] Mupirocin 1 applic 05/27/17 10:00 05/31/17 17:22 Bactroban Ointment (For Decolonization) - NS 06/01/17 09:59 1 applic BID [facility] Administration Ondansetron HCl 4 mg 05/27/17 19:12 Zofran - PO Q8H PRN NAUSEA Polyethylene Glycol 17 gm 05/31/17 10:00 05/31/17 09:38 Miralax (For Daily Use) - PO 17 grams BID SHARDA Administration Home Medications Medication Instructions Recorded Ibuprofen [Motrin -] 600 mg PO TID #21 tablet 05/12/17 Oxycodone HCl/Acetaminophen 1 tab PO Q6H PRN #12 tablet MDD 4 05/12/17 [Percocet 5-325 mg Tablet] tabs Microbiology 05/28/17 05:25 Blood - Peripheral Venous Blood Culture - Final Proteus Mirabilis 05/30/17 10:10 Blood - Peripheral Venous Blood Culture - Preliminary NO GROWTH OBTAINED AFTER 24 HOURS, INCUBATION TO CONTINUE FOR 4 DAYS. 05/30/17 10:05 Blood - Peripheral Venous Blood Culture - Preliminary NO GROWTH OBTAINED AFTER 24 HOURS, INCUBATION TO CONTINUE FOR 4 DAYS. 05/27/17 06:00 Urine - Urine Clean Catch Urine Culture - Final Escherichia Coli Proteus Mirabilis 05/27/17 05:26 Blood - Peripheral Venous Blood Culture - Final Proteus Mirabilis 05/27/17 05:26 Blood - Peripheral Venous Blood Culture - Final Proteus Mirabilis 05/27/17 15:30 Urine - Urine Nephrostomy Tube Left Urine Culture - Final Proteus Mirabilis a/P: # S/p severe sepsis due to Pylonephritis on IV Ancef 2gms daily continue # UTI due to E.coli and Proteus on IV antibiotic continue # Bacteremia due to Proteus on IV antibiotic continue #S/p ERIN resolved # Acute constipation on Miralax continue # Yeast Infection on Miconazole continue DVT Px: Heparin sq
[2017-05-31] MEDS ORDERED: DOCUSATE SODIUM 100 MG CAPSULE (FP) PO SCH (14:00)
[2017-05-31] MEDS: MUPIROCIN 2% TOPICAL OINTMENT FOR DECOLONIZATION NS SCH (17:22)
[2017-05-31] MEDS ORDERED: ACETAMINOPHEN 325 MG TABLET (FP) PO PRN (19:26)
[2017-05-31] MEDS ORDERED: guaiFENesin/D-METHORPHAN HB 10 ML UNIT-DOSE CUPS PO PRN (19:26)
[2017-05-31] MEDS ORDERED: ONDANSETRON 4 MG TABLET PO PRN (19:26)
[2017-05-31] MEDS: KETOROLAC TROMETHAMINE 30 MG/1 ML VIAL IVPUSH PRN (19:32)
[2017-05-31] MEDS ORDERED: PT OWN MED DRAWER 7, Y5N ONE (21:04)
[2017-05-31] MEDS: POLYETHYLENE GLYCOL 3350 119 GM BTL PO SCH (21:08)
[2017-05-31] MEDS: MICONAZOLE NITRATE 100 MG SUPP SUPP.VAG PV SCH (21:08)
[2017-05-31] MEDS: DOCUSATE SODIUM 100 MG CAPSULE (FP) PO SCH (21:08)
[2017-05-31] MEDS ORDERED: MICONAZOLE NITRATE 100 MG SUPP SUPP.VAG PV SCH (22:00)
[2017-06-01] MEDS ORDERED: CEFAZOLIN 2 GM/D5W 2 GM/50 ML ML IVPB SCH (02:00)
[2017-06-01] MEDS: KETOROLAC TROMETHAMINE 30 MG/1 ML VIAL IVPUSH PRN ×2 (05:40→18:03)
[2017-06-01] MEDS: DOCUSATE SODIUM 100 MG CAPSULE (FP) PO SCH ×3 (05:40→21:26)
[2017-06-01] MEDS: HEPARIN NA (PORCINE) 5,000 UNITS/ML 1ML VIAL SQ SCH ×3 (05:40→21:26)
[2017-06-01 06:14] LABS: BASO % 0.8 % (0-2.0); EOS % 2.8 % (0-4.5); HEMATOCRIT 35.3 % (32.4-45.2); HEMOGLOBIN 12.1 GM/dL (10.7-15.3); MCH 30.8 pg (25.7-33.7); MCHC 34.1 g/dl (32.0-36.0); MEAN CELL VOLUME 90.4 fl (80-96); MEAN PLT VOLUME 8.9 fl (7.5-11.1); MONO % 10.3 % (3.8-10.2); NEUT % 59.1 % (42.8-82.8); PLATELET COUNT 210 K/MM3 (134-434); RBC 3.91 M/mm3 (3.60-5.2); RDW 13.5 % (11.6-15.6); WHITE BLOOD COUNT 11.8 K/mm3 (4.0-10.0)
[2017-06-01] MEDS ORDERED: PT OWN MED DRAWER 7, Y5N ONE ×2 (06:21→21:19)
--- NOTE | 2017-06-01 06:34 | PN ---
Physical Exam: SUBJECTIVE: No acute events overnight. Pt has been afebrile for 24h currently. Pt reports her pain is markedly improved and is very minimal. OBJECTIVE: Vital Signs Period Temp Pulse Resp BP Sys/Lambert Pulse Ox Last 24 Hr 98.3 F-99.3 F 74-107 18-20 92-124/62-81 96-98 GENERAL: Marked improvement compared to yesterday, awake, alert HEENT: NC/AT, EMMANUEL, No JVD LUNGS: Decreased breath sounds bibasillary (but improving), no wheezes, no accessory muscle use. HEART: Tachycardic with regular rhythm, S1, S2 without murmur ABDOMEN: Soft, nontender, nondistended, normoactive bowel sounds, no guarding. BACK: Tattoos noted, L nephrostomy tube with continued clear-yellow urine in collection bag EXTREMITIES: 2+ DP pulses, warm, well-perfused, no edema, no calf tenderness SKIN: Warm, dry, no rashes or lesions noted Laboratory Results - last 24 hr 06/01/17 06:00 WBC 11.8 H RBC 3.91 Hgb 12.1 Hct 35.3 MCV 90.4 MCH 30.8 MCHC 34.1 RDW 13.5 Plt Count 210 MPV 8.9 Neutrophils % 59.1 Lymphocytes % 27.0 Monocytes % 10.3 H D Eosinophils % 2.8 Basophils % 0.8 Active Medications Generic Name Dose Route Start Last Admin Trade Name Freq PRN Reason Stop Dose Admin Acetaminophen 650 mg 05/31/17 19:26 Tylenol - PO Q4H PRN FEVER Docusate Sodium 100 mg 05/31/17 22:00 06/01/17 05:40 Colace - PO 100 mg TID SHARDA Administration Guaifenesin 10 ml 05/31/17 19:26 Robitussin Dm - PO Q6H PRN COUGH Heparin Sodium (Porcine) 5,000 unit 05/31/17 22:00 06/01/17 05:40 Heparin - SQ 5,000 unit TID SHARDA Administration Cefazolin Sodium/Dextrose 2 gm in 50 mls @ 100 mls/hr 06/01/17 02:00 02:37 Ancef 2 Gm Premixed Ivpb - IVPB 100 mls/hr Q8H-IV SHARDA Administration Ketorolac Tromethamine 30 mg 05/31/17 11:40 03/16/18 05:40 Toradol Injection - IVPUSH 06/05/17 11:39 30 mg Q6H PRN Administration PAIN LEVEL 6-10 Miconazole Nitrate 100 mg 05/31/17 22:00 05/31/17 21:08 Monistat-7 Vaginal Suppository - PV 06/06/17 22:01 1 supp.vag HS SHARDA Administration Ondansetron HCl 4 mg 05/31/17 19:26 Zofran - PO Q8H PRN NAUSEA Polyethylene Glycol 17 gm 05/31/17 22:00 05/31/17 21:08 Miralax (For Daily Use) - PO 17 grams BID SHARDA Administration ASSESSMENT/PLAN: Neuro: Neurologically intact Respiratory: No respiratory distress --CXR today shows worsening effusions --Lasix today --Encourage incentive spirometer to decrease risk of compressive atelectasis and post-obstructive PNA Cardiovascular: Stable ID UTI 2/2 to obstructive nephrolithiasis with Gram Negative Bacteremia --Most recent blood cultures showing no growth at 24hrs --Ancef to continue --Fluconazole and vaginal suppositories started due to suspected hilaria infection --ID on case --Renal US today to assess for kidney abscess --Afebrile for 24hrs; will contact urology on recs with nephrolith Urology Obstructive uropathy --s/p nephrostomy tube in place --Urology on board however will deal with stone once infection resolved --Toradol to continue --Cr stable after obstruction resolved FEN: Fluids: None currently Electrolyte abnormalities: Hypokalemia (repleted) Nutrition: Regular diet PPX: DVT - Heparin 5000 SQ TID Deconditioning - OOB to chair and activity as tolerated Dispo: Transfer to M/S Case discussed with Dr. Kevin Duckworth, DO - IM PGY-1 Visit type - Emergency Visit Emergency Visit: No - New Patient This patient is new to me today: No - Critical Care Critical Care patient: No
--- NOTE | 2017-06-01 06:57 | PN ---
Progress Note, Physician Chief Complaint: ID Clinically better No fever Cefazolin day 5 antibiotics - Current Medication List Current Medications: Active Medications Acetaminophen (Tylenol -) 650 mg PO Q4H PRN PRN Reason: FEVER Docusate Sodium (Colace -) 100 mg PO TID [facility] Last Admin: 06/01/17 05:40 Dose: 100 mg Guaifenesin (Robitussin Dm -) 10 ml PO Q6H PRN PRN Reason: COUGH Heparin Sodium (Porcine) (Heparin -) 5,000 unit SQ TID [facility] Last Admin: 06/01/17 05:40 Dose: 5,000 unit Cefazolin Sodium/Dextrose (Ancef 2 Gm Premixed Ivpb -) 2 gm in 50 mls @ 100 mls /hr IVPB Q8H-IV [facility] Last Admin: 06/01/17 02:37 Dose: 100 mls/hr Ketorolac Tromethamine (Toradol Injection -) 30 mg IVPUSH Q6H PRN PRN Reason: PAIN LEVEL 6-10 Stop: 06/05/17 11:39 Last Admin: 06/01/17 05:40 Dose: 30 mg Miconazole Nitrate (Monistat-7 Vaginal Suppository -) 100 mg PV HS [facility] Stop: 06/06/17 22:01 Last Admin: 05/31/17 21:08 Dose: 1 supp.vag Ondansetron HCl (Zofran -) 4 mg PO Q8H PRN PRN Reason: NAUSEA Polyethylene Glycol (Miralax (For Daily Use) -) 17 gm PO BID [facility] Last Admin: 05/31/17 21:08 Dose: 17 grams - Objective Vital Signs: Vital Signs Temperature 99.3 F 06/01/17 06:00 Pulse Rate 94 H 06/01/17 06:00 Respiratory Rate 20 06/01/17 06:00 Blood Pressure 111/71 06/01/17 06:00 O2 Sat by Pulse Oximetry (%) 98 05/31/17 20:01 Constitutional: Yes: Well Nourished, No Distress Cardiovascular: Yes: S1, S2 Respiratory: Yes: WNL, Regular, CTA Bilaterally Gastrointestinal: Yes: Soft Edema: No Labs: CBC, BMP 06/01/17 06:00 INR, PTT INR 1.67 (0.82-1.09) H 05/28/17 08:20 Fibrinogen 611.0 mg/dL (238-498) H 05/28/17 08:20 Problem List - Problems (1) Gram-negative bacteremia Code(s): R78.81 - BACTEREMIA (2) Left ureteral stone Code(s): N20.1 - CALCULUS OF URETER (3) Sepsis Code(s): A41.9 - SEPSIS, UNSPECIFIED ORGANISM (4) UTI (urinary tract infection) Code(s): N39.0 - URINARY TRACT INFECTION, SITE NOT SPECIFIED Assessment/Plan Microbiology 05/30/17 10:10 Blood - Peripheral Venous Blood Culture - Preliminary NO GROWTH OBTAINED AFTER 24 HOURS, INCUBATION TO CONTINUE FOR 4 DAYS. 05/30/17 10:05 Blood - Peripheral Venous Blood Culture - Preliminary NO GROWTH OBTAINED AFTER 24 HOURS, INCUBATION TO CONTINUE FOR 4 DAYS. Laboratory Tests 05/30/17 06/01/17 05:30 06:00 WBC 11.8 H Hgb 12.1 Plt Count 210 C-Reactive Protein 22.3 H Assessment Gram negative bacteremia with a stone PCN procedure Fever down Plan Obtain repeat sonogram to rule out abscess and assure complete decompression in light of fevers high CRP and get urology to follow up regarding plan going robson Champagne MD
[2017-06-01 07:07] LABS: ANION GAP 11 (8-16); BLOOD UREA NITROGEN 16 mg/dL (7-18); CALCIUM 8.5 mg/dL (8.5-10.1); CHLORIDE 98 mmol/L (98-107); CO2 30 mmol/L (21-32); GLUCOSE,RANDOM 72 mg/dL (74-106); MAGNESIUM 2.5 mg/dL (1.8-2.4); POTASSIUM 3.9 mmol/L (3.5-5.1); SODIUM 139 mmol/L (136-145)
[2017-06-01 07:09] LABS: CREATININE 0.7 mg/dL (0.55-1.02); PHOSPHOROUS 3.4 mg/dL (2.5-4.9)
[2017-06-01] MEDS ORDERED: FUROSEMIDE 40 MG/4 ML INJECTABLE VIAL IVPUSH ONE (09:00)
[2017-06-01] MEDS ORDERED: cefTRIAXone SODIUM 1 GM VIAL ONE (10:51)
[2017-06-01] MEDS ORDERED: DEXTROSE 5%-WATER - 50 ML IVPB ONE (10:51)
[2017-06-01] MEDS: POLYETHYLENE GLYCOL 3350 119 GM BTL PO SCH ×2 (11:01→21:26)
[2017-06-01] MEDS: CEFTRIAXONE 1 GM in DEXTROSE 5%-WATER - 50 ML IVPB SCH (11:01)
--- NOTE | 2017-06-01 11:52 | PN ---
Teaching Attending Note Name of Resident: Robi Duckworth ATTENDING PHYSICIAN STATEMENT I saw and evaluated the patient. I reviewed the resident's note and discussed the case with the resident. I agree with the resident's findings and plan as documented. SUBJECTIVE: Patient seen and examined in the ICU. Breathing feels better today. (+) Dry cough. Has been diuresing well with lasix. Flank pain improving. OBJECTIVE: Intake & Output 05/29/17 05/30/17 05/31/17 06/01/17 23:59 23:59 23:59 23:59 Intake Total 740 1390 300 Output Total 3600 5550 2900 1000 Balance -2860 -5550 -1510 -700 Weight 174 lb 6.17 oz 173 lb 6.4 oz 170 lb 8 oz Last Vital Signs Temp Pulse Resp BP Pulse Ox 99.3 F 94 H 20 111/71 98 06/01/17 06:00 06/01/17 06:00 06/01/17 06:00 06/01/17 06:00 06/01/17 09:00 Active Medications Acetaminophen (Tylenol -) 650 mg PO Q4H PRN PRN Reason: FEVER Docusate Sodium (Colace -) 100 mg PO TID [facility] Last Admin: 06/01/17 05:40 Dose: 100 mg Guaifenesin (Robitussin Dm -) 10 ml PO Q6H PRN PRN Reason: COUGH Heparin Sodium (Porcine) (Heparin -) 5,000 unit SQ TID [facility] Last Admin: 06/01/17 05:40 Dose: 5,000 unit Ceftriaxone Sodium 1 gm/ (Dextrose) 50 mls @ 100 mls/hr IVPB DAILY [facility] Last Admin: 06/01/17 11:01 Dose: 100 mls/hr Ketorolac Tromethamine (Toradol Injection -) 30 mg IVPUSH Q6H PRN PRN Reason: PAIN LEVEL 6-10 Stop: 06/05/17 11:39 Last Admin: 06/01/17 05:40 Dose: 30 mg Miconazole Nitrate (Monistat-7 Vaginal Suppository -) 100 mg PV HS [facility] Stop: 06/06/17 22:01 Last Admin: 05/31/17 21:08 Dose: 1 supp.vag Ondansetron HCl (Zofran -) 4 mg PO Q8H PRN PRN Reason: NAUSEA Polyethylene Glycol (Miralax (For Daily Use) -) 17 gm PO BID [facility] Last Admin: 06/01/17 11:01 Dose: Not Given Gen: Awake and alert, less tachypneic Heart: S1S2, regular Lung: decreased breath sounds at the bases, few scattered rhonhci Abd: soft, (+) BS, mild left flank tenderness Ext: no edema Laboratory Results - last 24 hr 06/01/17 06/01/17 06:00 06:00 WBC 11.8 H RBC 3.91 Hgb 12.1 Hct 35.3 MCV 90.4 MCH 30.8 MCHC 34.1 RDW 13.5 Plt Count 210 MPV 8.9 Neutrophils % 59.1 Lymphocytes % 27.0 Monocytes % 10.3 H D Eosinophils % 2.8 Basophils % 0.8 Sodium 139 Potassium 3.9 Chloride 98 Carbon Dioxide 30 Anion Gap 11 BUN 16 Creatinine 0.7 Random Glucose 72 L Calcium 8.5 Phosphorus 3.4 Magnesium 2.5 H ASSESSMENT AND PLAN: UTI Proteus/E Coli Bacteremia Nephrolithiasis/Hydronephrosis/Obstructive Uropathy s/p Left Nephrostomy tube placement Sepsis Lactic Acidosis Volume Overload - continue antibiotics - pain control - Daily assessment for Lasix - Monitor urine output, creatinine - Replete lytes - Monitor CXR - O2 to keep SpO2 >90% - urology f/u - DVT prophylaxis - Incentive Spirometry Dr Brown Critical care time spent in reviewing chart, evaluating patient and formulating plan - 36 minutes.
--- NOTE | 2017-06-01 11:52 | PN ---
<Misbah Wei - Last Filed: 06/01/17 16:27> Physical Exam: SUBJECTIVE: Patient seen and examined No acute events overnight. Breathing is mildly improved. Her pain is improving as well. OBJECTIVE: Vital Signs Period Temp Pulse Resp BP Sys/Lambert Pulse Ox Last 24 Hr 98.3 F-99.3 F 74-101 18-20 101-124/65-81 98-98 GENERAL: The patient is awake, alert, and fully oriented, in no acute distress HEAD: Normal with no signs of trauma. EYES: PERRL, extraocular movements intact, sclera anicteric, conjunctiva clear. No ptosis. ENT: Oropharynx clear without exudates, moist mucous membranes. NECK: Trachea midline, full range of motion, supple. LUNGS: Breath sounds equal, clear to auscultation bilaterally, no wheezes, no crackles, no accessory muscle use. Mild decreased breath sounds at bases HEART: Tachycardic, regular rhythm, S1, S2 without murmur, rub or gallop. ABDOMEN: Soft, Abdominal tenderness improved, mild L CVA tenderness, nondistended, normoactive bowel sounds, no guarding, no rebound, no hepatosplenomegaly, no masses. L nephrostomy in place-- draining clear yellow urine. c/d/i dressing EXTREMITIES: 2+ pulses, warm, well-perfused, no edema. NEUROLOGICAL: Cranial nerves II through XII grossly intact. Normal speech, gait not observed. PSYCH: Normal mood, normal affect. SKIN: Warm, dry, normal turgor, no rashes or lesions noted : Haas in place Laboratory Results - last 24 hr 06/01/17 06/01/17 06:00 06:00 WBC 11.8 H RBC 3.91 Hgb 12.1 Hct 35.3 MCV 90.4 MCH 30.8 MCHC 34.1 RDW 13.5 Plt Count 210 MPV 8.9 Neutrophils % 59.1 Lymphocytes % 27.0 Monocytes % 10.3 H D Eosinophils % 2.8 Basophils % 0.8 Sodium 139 Potassium 3.9 Chloride 98 Carbon Dioxide 30 Anion Gap 11 BUN 16 Creatinine 0.7 Random Glucose 72 L Calcium 8.5 Phosphorus 3.4 Magnesium 2.5 H Active Medications Generic Name Dose Route Start Last Admin Trade Name Freq PRN Reason Stop Dose Admin Acetaminophen 650 mg 05/31/17 19:26 Tylenol - PO Q4H PRN FEVER Docusate Sodium 100 mg 05/31/17 22:00 06/01/17 05:40 Colace - PO 100 mg TID SHARDA Administration Guaifenesin 10 ml 05/31/17 19:26 Robitussin Dm - PO Q6H PRN COUGH Heparin Sodium (Porcine) 5,000 unit 05/31/17 22:00 06/01/17 05:40 Heparin - SQ 5,000 unit TID SHARDA Administration Ceftriaxone Sodium 1 gm/ 50 mls @ 100 mls/hr 06/01/17 10:00 06/01/17 11:01 Dextrose IVPB 100 mls/hr DAILY SHARDA Administration Ketorolac Tromethamine 30 mg 05/31/17 11:40 06/01/17 05:40 Toradol Injection - IVPUSH 06/05/17 11:39 30 mg Q6H PRN Administration PAIN LEVEL 6-10 Miconazole Nitrate 100 mg 05/31/17 22:00 05/31/17 21:08 Monistat-7 Vaginal Suppository - PV 06/06/17 22:01 1 supp.vag HS SHARDA Administration Ondansetron HCl 4 mg 05/31/17 19:26 Zofran - PO Q8H PRN NAUSEA Polyethylene Glycol 17 gm 05/31/17 22:00 06/01/17 11:01 Miralax (For Daily Use) - PO Not Given BID [facility] ASSESSMENT/PLAN: 26 year old female with past medical history of nephrolithiasis, recurrent UTI, and previous bacteremia presented with left flank pain and found to be in severe sepsis secondary to pyelonephritis with left mid/distal stone #Severe sepsis 2/2 to pyelonephritis with stone -Ancef switched to Ceftriaxone 1g daily. Day 6 of antibiotics -BCx: proteus, UCx: proteus and e coli. Repeat bcx- Proteus -Repeat BCx NGTD -Left nephrostomy placed, can place stent once patient is more medically stable -Tylenol for fever -Toradol for pain -Monitor fevers -Miconazole for vaginal itching -Renal u/s 06/01-- nephrostomy in place, no perirenal bleed #Acute respiratory distress -Improving -Echo unremarkable -Hold IVF -Encourage incentive spirometer -1 dose of 20 mg iv Lasix today for worsening cxr #ERIN, resolved -Hold IVF -monitor Cr -Avoid nephrotoxic medications #FEN/GI -no ivf -monitor bmp -regular diet #PPx -heparin 5000 u sq tid Dispo: transfer to m/s Visit type - Emergency Visit Emergency Visit: Yes ED Registration Date: 05/27/17 Care time: The patient presented to the Emergency Department on the above date and was hospitalized for further evaluation of their emergent condition. - New Patient This patient is new to me today: No - Critical Care Critical Care patient: Yes Total Critical Care Time (in minutes): 36 Critical Care Statement: The care of this patient involved high complexity decision making to prevent further life threatening deterioration of the patient 's condition and/or to evaluate & treat vital organ system(s) failure or risk of failure. <Boogie Oseguera - Last Filed: 06/01/17 19:14> Physical Exam: Patient seen and examined. comfortable with no acute distress, better today. No fever overnight. Vital Signs Temperature 99.3 F 06/01/17 06:00 Pulse Rate 93 H 06/01/17 12:00 Respiratory Rate 22 06/01/17 18:00 Blood Pressure 99/66 06/01/17 12:00 O2 Sat by Pulse Oximetry (%) 96 06/01/17 16:00 CBCD WBC 11.8 K/mm3 (4.0-10.0) H 06/01/17 06:00 RBC 3.91 M/mm3 (3.60-5.2) 06/01/17 06:00 Hgb 12.1 GM/dL (10.7-15.3) 06/01/17 06:00 Hct 35.3 % (32.4-45.2) 06/01/17 06:00 MCV 90.4 fl (80-96) 06/01/17 06:00 MCHC 34.1 g/dl (32.0-36.0) 06/01/17 06:00 RDW 13.5 % (11.6-15.6) 06/01/17 06:00 Plt Count 210 K/MM3 (134-434) 06/01/17 06:00 MPV 8.9 fl (7.5-11.1) 06/01/17 06:00 CMP Sodium 139 mmol/L (136-145) 06/01/17 06:00 Potassium 3.9 mmol/L (3.5-5.1) 06/01/17 06:00 Chloride 98 mmol/L (98-107) 06/01/17 06:00 Carbon Dioxide 30 mmol/L (21-32) 06/01/17 06:00 Anion Gap 11 (8-16) 06/01/17 06:00 BUN 16 mg/dL (7-18) 06/01/17 06:00 Creatinine 0.7 mg/dL (0.55-1.02) 06/01/17 06:00 Creat Clearance w eGFR > 60 (>60) 05/30/17 05:30 Random Glucose 72 mg/dL (74-106) L 06/01/17 06:00 Calcium 8.5 mg/dL (8.5-10.1) 06/01/17 06:00 Total Bilirubin 0.4 mg/dL (0.2-1.0) D 05/30/17 05:30 AST 15 U/L (15-37) 05/30/17 05:30 ALT 19 U/L (12-78) 05/30/17 05:30 Alkaline Phosphatase 103 U/L (45-117) 05/30/17 05:30 Total Protein 5.7 g/dl (6.4-8.2) L 05/30/17 05:30 Albumin 1.9 g/dl (3.4-5.0) L 05/30/17 05:30 Current Medications Generic Name Dose Route Start Last Admin Trade Name Freq PRN Reason Stop Dose Admin Acetaminophen 650 mg 05/31/17 19:26 Tylenol - PO Q4H PRN FEVER Docusate Sodium 100 mg 05/31/17 22:00 06/01/17 15:39 Colace - PO Not Given TID SHARDA Guaifenesin 10 ml 05/31/17 19:26 Robitussin Dm - PO Q6H PRN COUGH Heparin Sodium (Porcine) 5,000 unit 05/31/17 22:00 06/01/17 15:39 Heparin - SQ 5,000 unit TID [facility] Administration Ceftriaxone Sodium 1 gm/ 50 mls @ 100 mls/hr 06/01/17 10:00 06/01/17 11:01 Dextrose IVPB 100 mls/hr DAILY [facility] Administration Ketorolac Tromethamine 30 mg 05/31/17 11:40 06/01/17 18:03 Toradol Injection - IVPUSH 06/05/17 11:39 30 mg Q6H PRN Administration PAIN LEVEL 6-10 Miconazole Nitrate 100 mg 05/31/17 22:00 05/31/17 21:08 Monistat-7 Vaginal Suppository - PV 06/06/17 22:01 1 supp.vag HS SHARDA Administration Ondansetron HCl 4 mg 05/31/17 19:26 Zofran - PO Q8H PRN NAUSEA Polyethylene Glycol 17 gm 05/31/17 22:00 06/01/17 11:01 Miralax (For Daily Use) - PO Not Given BID SHARDA Hepatic Panel Total Bilirubin 0.4 mg/dL (0.2-1.0) D 05/30/17 05:30 Direct Bilirubin < 0.2 mg/dL (0.0-0.2) 05/29/17 05:35 AST 15 U/L (15-37) 05/30/17 05:30 ALT 19 U/L (12-78) 05/30/17 05:30 Alkaline Phosphatase 103 U/L (45-117) 05/30/17 05:30 Albumin 1.9 g/dl (3.4-5.0) L 05/30/17 05:30 Agree with the resident's plan.
[2017-06-01] MEDS ORDERED: POTASSIUM CHLORIDE TABS 20 MEQ TABLET.ER (FP) PO ONE ×2 (12:45→15:07)
[2017-06-01] MEDS: MICONAZOLE NITRATE 100 MG SUPP SUPP.VAG PV SCH (22:11)
[2017-06-02] MEDS: HEPARIN NA (PORCINE) 5,000 UNITS/ML 1ML VIAL SQ SCH ×3 (05:45→21:06)
[2017-06-02] MEDS: DOCUSATE SODIUM 100 MG CAPSULE (FP) PO SCH ×3 (05:45→21:19)
--- NOTE | 2017-06-02 10:02 | PN ---
Progress Note (short form) - Note Progress Note: ID Ceftriaxone Selected Entries 06/02/17 05:59 Temperature 98.8 F Pulse Rate 82 Respiratory 19 Rate Blood Pressure 112/68 Microbiology 05/28/17 05:25 Blood - Peripheral Venous Blood Culture - Final Proteus Mirabilis 05/27/17 15:30 Urine - Urine Nephrostomy Tube Left Urine Culture - Final Proteus Mirabilis 05/27/17 05:26 Blood - Peripheral Venous Blood Culture - Final Proteus Mirabilis 05/27/17 05:26 Blood - Peripheral Venous Blood Culture - Final Proteus Mirabilis Laboratory Tests 06/01/17 06/02/17 06:00 09:22 WBC 11.8 H Pending Assessment Proteus bacteremia UTI PCN tube Plan Can switch to po Levofloxacin 750mg daily today Mahi RIVAS Problem List - Problems (1) Gram-negative bacteremia Code(s): R78.81 - BACTEREMIA (2) Left ureteral stone Code(s): N20.1 - CALCULUS OF URETER (3) Sepsis Code(s): A41.9 - SEPSIS, UNSPECIFIED ORGANISM (4) UTI (urinary tract infection) Code(s): N39.0 - URINARY TRACT INFECTION, SITE NOT SPECIFIED
--- NOTE | 2017-06-02 10:06 | PN ---
Physical Exam: SUBJECTIVE: Patient seen and examined Patient is feeling better wants to go home. OBJECTIVE: Vital Signs Temperature 98.8 F 06/02/17 05:59 Pulse Rate 82 06/02/17 05:59 Respiratory Rate 19 06/02/17 05:59 Blood Pressure 112/68 06/02/17 05:59 O2 Sat by Pulse Oximetry (%) 97 06/01/17 22:00 GENERAL: The patient is awake, alert, and fully oriented, in no acute distress. HEAD: Normal with no signs of trauma. EYES: PERRL, extraocular movements intact, sclera anicteric, conjunctiva clear. No ptosis. ENT: Ears normal, nares patent, oropharynx clear without exudates, moist mucous membranes. NECK: Trachea midline, full range of motion, supple. LUNGS: Breath sounds equal, clear to auscultation bilaterally, no wheezes, no crackles, no accessory muscle use. HEART: Regular rate and rhythm, S1, S2 without murmur, rub or gallop. ABDOMEN: Soft, nontender, nondistended, normoactive bowel sounds, no guarding, no rebound, no hepatosplenomegaly, no masses. EXTREMITIES: 2+ pulses, warm, well-perfused, no edema. NEUROLOGICAL: Cranial nerves II through XII grossly intact. Normal speech, gait not observed. PSYCH: Normal mood, normal affect. SKIN: Warm, dry, normal turgor, no rashes or lesions noted CBCD WBC 11.8 K/mm3 (4.0-10.0) H 06/01/17 06:00 RBC 3.91 M/mm3 (3.60-5.2) 06/01/17 06:00 Hgb 12.1 GM/dL (10.7-15.3) 06/01/17 06:00 Hct 35.3 % (32.4-45.2) 06/01/17 06:00 MCV 90.4 fl (80-96) 06/01/17 06:00 MCHC 34.1 g/dl (32.0-36.0) 06/01/17 06:00 RDW 13.5 % (11.6-15.6) 06/01/17 06:00 Plt Count 210 K/MM3 (134-434) 06/01/17 06:00 MPV 8.9 fl (7.5-11.1) 06/01/17 06:00 CMP Sodium 139 mmol/L (136-145) 06/01/17 06:00 Potassium 3.9 mmol/L (3.5-5.1) 06/01/17 06:00 Chloride 98 mmol/L (98-107) 06/01/17 06:00 Carbon Dioxide 30 mmol/L (21-32) 06/01/17 06:00 Anion Gap 11 (8-16) 06/01/17 06:00 BUN 16 mg/dL (7-18) 06/01/17 06:00 Creatinine 0.7 mg/dL (0.55-1.02) 06/01/17 06:00 Creat Clearance w eGFR > 60 (>60) 05/30/17 05:30 Random Glucose 72 mg/dL (74-106) L 06/01/17 06:00 Calcium 8.5 mg/dL (8.5-10.1) 06/01/17 06:00 Total Bilirubin 0.4 mg/dL (0.2-1.0) D 05/30/17 05:30 AST 15 U/L (15-37) 05/30/17 05:30 ALT 19 U/L (12-78) 05/30/17 05:30 Alkaline Phosphatase 103 U/L (45-117) 05/30/17 05:30 Total Protein 5.7 g/dl (6.4-8.2) L 05/30/17 05:30 Albumin 1.9 g/dl (3.4-5.0) L 05/30/17 05:30 Active Medications Generic Name Dose Route Start Last Admin Trade Name Freq PRN Reason Stop Dose Admin Acetaminophen 650 mg 05/31/17 19:26 Tylenol - PO Q4H PRN FEVER Docusate Sodium 100 mg 05/31/17 22:00 06/02/17 05:45 Colace - PO 100 mg TID SHARDA Administration Guaifenesin 10 ml 05/31/17 19:26 Robitussin Dm - PO Q6H PRN COUGH Heparin Sodium (Porcine) 5,000 unit 05/31/17 22:00 06/02/17 05:45 Heparin - SQ 5,000 unit TID SHARDA Administration Ketorolac Tromethamine 30 mg 05/31/17 11:40 06/01/17 18:03 Toradol Injection - IVPUSH 06/05/17 11:39 30 mg Q6H PRN Administration PAIN LEVEL 6-10 Levofloxacin 750 mg 06/03/17 10:00 Levaquin - PO DAILY [facility] Miconazole Nitrate 100 mg 05/31/17 22:00 06/01/17 22:11 Monistat-7 Vaginal Suppository - PV 06/06/17 22:01 100 supp.vag HS SHARDA Administration Ondansetron HCl 4 mg 05/31/17 19:26 Zofran - PO Q8H PRN NAUSEA Polyethylene Glycol 17 gm 05/31/17 22:00 06/01/17 21:26 Miralax (For Daily Use) - PO 17 grams BID SHARDA Administration Home Medications Medication Instructions Recorded Ibuprofen [Motrin -] 600 mg PO TID #21 tablet 05/12/17 Oxycodone HCl/Acetaminophen 1 tab PO Q6H PRN #12 tablet MDD 4 05/12/17 [Percocet 5-325 mg Tablet] tabs Microbiology 05/30/17 10:10 Blood - Peripheral Venous Blood Culture - Preliminary NO GROWTH OBTAINED AFTER 48 HOURS, INCUBATION TO CONTINUE FOR 3 DAYS. 05/30/17 10:05 Blood - Peripheral Venous Blood Culture - Preliminary NO GROWTH OBTAINED AFTER 48 HOURS, INCUBATION TO CONTINUE FOR 3 DAYS. 05/28/17 05:25 Blood - Peripheral Venous Blood Culture - Final Proteus Mirabilis 05/27/17 06:00 Urine - Urine Clean Catch Urine Culture - Final Escherichia Coli Proteus Mirabilis 05/27/17 05:26 Blood - Peripheral Venous Blood Culture - Final Proteus Mirabilis 05/27/17 05:26 Blood - Peripheral Venous Blood Culture - Final Proteus Mirabilis 05/27/17 15:30 Urine - Urine Nephrostomy Tube Left Urine Culture - Final Proteus Mirabilis ASSESSMENT/PLAN: 26 year old female with past medical history of nephrolithiasis, recurrent UTI, and previous bacteremia presented with left flank pain and found to be in severe sepsis secondary to pyelonephritis with left mid/distal stone #s/p Severe sepsis due to pyelonephritis due to Proteus bacteremia UTI s/p IV antibiotic ,Rocephin switched to Levaquin since clture is sensitive to Levaquin #s/p Acute respiratory distress Improving. Echo unremarkable, continue incentive spirometer #ERIN, resolved continue to hold IVF, Avoid nephrotoxic medications #PPx: heparin 5000 u sq tid discharge patient home with Levofloxacin 750mg daily x 6 more days wants to her in his office once antibiotic is completed. as per uro. patient can go home if stable. Visit type - Emergency Visit Emergency Visit: Yes ED Registration Date: 05/27/17 Care time: The patient presented to the Emergency Department on the above date and was hospitalized for further evaluation of their emergent condition. - New Patient This patient is new to me today: No - Critical Care Critical Care patient: No - Discharge Referral Referred to [facility] Med P.C.: No
[2017-06-02 10:08] LABS: HEMATOCRIT 33.5 % (32.4-45.2); HEMOGLOBIN 11.3 GM/dL (10.7-15.3); MCH 30.7 pg (25.7-33.7); MCHC 33.9 g/dl (32.0-36.0); MEAN CELL VOLUME 90.6 fl (80-96); MEAN PLT VOLUME 8.7 fl (7.5-11.1); PLATELET COUNT 261 K/MM3 (134-434); RBC 3.69 M/mm3 (3.60-5.2); RDW 13.3 % (11.6-15.6); WHITE BLOOD COUNT 11.9 K/mm3 (4.0-10.0)
[2017-06-02 10:30] LABS: ANION GAP 10 (8-16); BLOOD UREA NITROGEN 15 mg/dL (7-18); CALCIUM 8.5 mg/dL (8.5-10.1); CHLORIDE 100 mmol/L (98-107); CO2 28 mmol/L (21-32); GLUCOSE,RANDOM 122 mg/dL (74-106); POTASSIUM 4.1 mmol/L (3.5-5.1); SODIUM 138 mmol/L (136-145)
[2017-06-02 10:33] LABS: CREATININE 0.8 mg/dL (0.55-1.02)
[2017-06-02] MEDS: CEFTRIAXONE 1 GM in DEXTROSE 5%-WATER - 50 ML IVPB SCH (11:48)
[2017-06-02 12:24] LABS: PLATELET ESTIMATE NORMAL
[2017-06-02] MEDS: POLYETHYLENE GLYCOL 3350 119 GM BTL PO SCH ×2 (13:19→21:06)
[2017-06-02] MEDS: KETOROLAC TROMETHAMINE 30 MG/1 ML VIAL IVPUSH PRN (16:42)
[2017-06-02] MEDS ORDERED: PT OWN MED DRAWER 7, Y5N ONE (21:00)
[2017-06-02] MEDS: MICONAZOLE NITRATE 100 MG SUPP SUPP.VAG PV SCH (21:06)
[2017-06-03] MEDS: DOCUSATE SODIUM 100 MG CAPSULE (FP) PO SCH (05:52)
[2017-06-03] MEDS: HEPARIN NA (PORCINE) 5,000 UNITS/ML 1ML VIAL SQ SCH (05:55)
[2017-06-03 07:51] LABS: HEMATOCRIT 32.2 % (32.4-45.2); HEMOGLOBIN 11.1 GM/dL (10.7-15.3); MCH 30.7 pg (25.7-33.7); MCHC 34.5 g/dl (32.0-36.0); MEAN CELL VOLUME 89.2 fl (80-96); PLATELET COUNT 304 K/MM3 (134-434); RBC 3.61 M/mm3 (3.60-5.2); RDW 13.1 % (11.6-15.6); WHITE BLOOD COUNT 15.2 K/mm3 (4.0-10.0)
[2017-06-03] MEDS: KETOROLAC TROMETHAMINE 30 MG/1 ML VIAL IVPUSH PRN (08:48)
[2017-06-03 09:26] LABS: ACANTHOCYTES 0; ANISOCYTOSIS 0; HELMET CELLS 0; HOWELL-JOLLY BODIES 0; MACROCYTOSIS 0; OVALOCYTE 0; PLATELET ESTIMATE NORMAL; ROULEAU 0; SICKELED CELLS 0; TARGET CELLS 0; TEAR DROP CELLS 0; TOXIC GRANULATION 0
[2017-06-03] MEDS: POLYETHYLENE GLYCOL 3350 119 GM BTL PO SCH (10:02)
[2017-06-03 12:17] VITALS: BP 102/62; PULSE 82; TEMP 99.2
--- NOTE | 2017-06-03 14:41 | DS ---
Physical Exam: Selected Entries 05/28/17 05/28/17 05/30/17 14:00 20:00 08:00 Temperature 101.5 F H 102 F H 101.9 F H Pulse Rate Blood Pressure 05/30/17 05/30/17 05/30/17 12:00 16:00 18:00 Temperature Pulse Rate 98 H 118 H 111 H Blood Pressure 05/31/17 05/31/17 05/31/17 00:00 08:00 10:00 Temperature Pulse Rate 101 H Blood Pressure 92/62 96/66 06/02/17 06/03/17 22:00 09:00 Temperature 99.2 F Pulse Rate 92 H 82 Blood Pressure 102/62 Laboratory Tests 05/27/17 05/27/17 05/27/17 01:39 05:23 08:20 WBC 44.5 H* D 34.6 H* ABG pH ABG pO2 at Pt Temp ABG HCO3 Sodium Potassium Chloride Carbon Dioxide BUN Creatinine Hemoglobin A1c % Lactic Acid 2.8 H* 05/27/17 05/27/17 05/27/17 08:20 18:35 19:25 WBC 45.9 H* D ABG pH 7.30 L ABG pO2 at Pt Temp 63.7 L ABG HCO3 18.5 L Sodium Potassium Chloride Carbon Dioxide BUN Creatinine Hemoglobin A1c % 5.2 Lactic Acid 05/27/17 05/28/17 05/28/17 19:25 05:25 08:20 WBC 35.8 H* ABG pH ABG pO2 at Pt Temp ABG HCO3 Sodium Potassium Chloride Carbon Dioxide BUN Creatinine Hemoglobin A1c % Lactic Acid 2.7 H* 2.3 H* 05/28/17 05/29/17 06/02/17 20:30 05:35 09:22 WBC 17.4 H D 11.9 H ABG pH ABG pO2 at Pt Temp ABG HCO3 Sodium Potassium Chloride Carbon Dioxide BUN Creatinine Hemoglobin A1c % Lactic Acid 1.1 06/02/17 06/03/17 09:22 07:20 WBC 15.2 H ABG pH ABG pO2 at Pt Temp ABG HCO3 Sodium 138 Potassium 4.1 Chloride 100 Carbon Dioxide 28 BUN 15 Creatinine 0.8 Hemoglobin A1c % Lactic Acid Microbiology 05/28/17 05:25 Blood - Peripheral Venous Blood Culture - Final Proteus Mirabilis 05/27/17 15:30 Urine - Urine Nephrostomy Tube Left Urine Culture - Final Proteus Mirabilis 05/27/17 06:00 Urine - Urine Clean Catch Urine Culture - Final Escherichia Coli Proteus Mirabilis 05/27/17 05:26 Blood - Peripheral Venous Blood Culture - Final Proteus Mirabilis 05/27/17 05:26 Blood - Peripheral Venous Blood Culture - Final Proteus Mirabilis 05/30/17 10:10 Blood - Peripheral Venous Blood Culture - Preliminary NO GROWTH OBTAINED AFTER 96 HOURS, INCUBATION TO CONTINUE FOR 1 DAYS. 05/30/17 10:05 Blood - Peripheral Venous Blood Culture - Preliminary NO GROWTH OBTAINED AFTER 96 HOURS, INCUBATION TO CONTINUE FOR 1 DAYS. IMAGING abd/pelvis ct- 6x7mm obstructing stone with mild hydroureter and mild hydronephrosis Renal us 05/27- no hydronephrosis or postprocedure hemorrhage Renal U/- no intrrenal or perinephric bleed HOSPITAL COURSE: Date of Admission:05/27/17 Date of Discharge: 06/03/17 26 year old F with pmh of recurrent UTI presented with left flank pain found to have a distal ureter stone as well as pyelonephritis. Patient was admitted to the ICU with severe sepsis. Patient found to have proteus bacteremia. Left nephrostomy tube was placed and patient was treated with antibiotics. Patient will be d/c on levaquin x 6 days (sensitive). Patient will f/u with Dr. Garcia in 1 week for nephrostomy removal and stent placement. Minutes to complete discharge: 60 Discharge Summary Reason For Visit: UTI Current Active Problems Left ureteral stone (Acute) Obstructive uropathy (Acute) Condition: Stable - Instructions Diet, Activity, Other Instructions: You were in the hospital for a kidney stone, kidney infection, and bacteria in your blood. Please follow up with the urologist, Dr. Antoine in 1 week after you finish your antibiotics. Call for an appointment. Please follow up with your primary care provider within 1 week. Continue your home medications. Take Levaquin 750 mg daily for 6 days. Take Miconazole 100 mg suppository for 4 more days to complete a 7 day course. Take Tylenol for pain as needed Cover your nephrostomy tube with small gauze and tegaderm and keep dry. If you have chest pain, shortness of breath, or any new/worsening symptoms please come back to the hospital immediately. Referrals: Robi Antoine MD [Staff Physician] - Disposition: VNS/HOME HEALTH CARE - Home Medications Comprehensive Discharge Medication List: Ambulatory Orders Acetaminophen [Tylenol .Regular Strength -] 650 mg PO Q4H PRN tablet 06/03/17 Miconazole Nitrate [Monistat-7 Vaginal Suppository -] 100 mg PV HS #4 supp.vag 06/03/17 levoFLOXacin [Levaquin -] 750 mg PO DAILY@0600 #18 tablet 06/03/17 This patient is new to me today: No Emergency Visit: Yes ED Registration Date: 05/27/17 Care time: The patient presented to the Emergency Department on the above date and was hospitalized for further evaluation of their emergent condition. Critical Care patient: No - Discharge Referral Referred to [facility] Med P.C.: No
== END 2017-06-03 15:35 | disposition home health service (06) | DRG 710 ==
LOC: JER 00:37 → JERBED 04:43 → J8W 07:57 → JICU 09:42 → J6S 06-01 15:28
PROVIDERS: ADMIT Internal Medicine; ATTEND Internal Medicine
PROC: 0T9430Z Drainage of Left Kidney Pelvis with Drainage Device, Percutaneous Approach (ICD-10-PCS; principal; 2017-05-27)
DX: A41.9 Sepsis, unspecified organism (principal); N10 Acute pyelonephritis; N13.2 Hydronephrosis with renal and ureteral calculous obstruction; N17.9 Acute kidney failure, unspecified; E87.2 Acidosis; E87.70 Fluid overload, unspecified; R65.21 Severe sepsis with septic shock; I95.9 Hypotension, unspecified; R09.02 Hypoxemia
CPT/HCPCS: 36415; 36600; 50432; 71045-TC-FY; 74176; 76000-TC-FY; 76775-TC; 76998-TC; 80048; 80053; 80076; 81003; 81015; 82803; 82962; 83036; 83605; 83735; 84100; 84703; 85025; 85027; 85384; 85610; 85730; 86140; 87040; 87086; 87186; 87389; 87491; 87591; 93005; 93010; 93306-TC; 97116-GP; 97161-GP; 99281-25; A4358; C1729; C1769; J0131; J1644; J7030

== ENCOUNTER 2017-06-12 12:08 | Emergency (ER) | payer OTHER ==
[2017-06-12 12:16] VITALS: BP 107/63; PULSE 83; TEMP 98.1; BMI 25.6
--- NOTE | 2017-06-12 13:34 | PDOC ---
History of Present Illness - General Chief Complaint: Urinary Catheter Problem Stated Complaint: PAIN Time Seen by Provider: 06/12/17 12:45 - History of Present Illness Initial Comments: 06/12/17 13:28 26 yo F with h/o recent ED admission sepsis 2/2 pyelonephritis d/t left ureter nephrolithiasis/obstructive uropathy (05/27- 06/03 ) s/p L nephrostomy tube placement who p/w nephrostomy tube removal. Patient states that she attempted to have L nephrostomy tube taken out from Dr. Robi Patel, but request was declined d/t insurance refusal. Recently admitted for obstructive uropathy 2/2 L distal ureter stone, and Proteus bacteremia. Davey Inez IR ( 05/27/17) placed nephrosotomy tube Completed outpt. Levaquin 750 mg PO 6 days. Was advised to present to Dr. garcia after one week d/c for stent removal. Patient states this day 9 of stent and was supposed to have stent removed after 7 days. Denies N/V, F/C, CP, SOB, abdominal pain, diarrhea, constipation, urinary complaints, dysuria, hematuria, lightheadedness,weakness, sensory changes. Past History - Past Medical History Allergies/Adverse Reactions: Allergies Allergy/AdvReac Type Severity Reaction Status Date / Time No Known Allergies Allergy Verified 06/12/17 12:16 Home Medications: Ambulatory Orders Unobtainable [Unobtainable] 06/12/17 Anemia: No Asthma: No Cancer: No Cardiac Disorders: No CVA: No COPD: No CHF: No Dementia: No Diabetes: No GI Disorders: No Disorders: Yes HTN: No Hypercholesterolemia: No Liver Disease: No Seizures: No Thyroid Disease: No - Suicide/Smoking/Psychosocial Hx Smoking History: Never smoked Have you smoked in the past 12 months: No Information on smoking cessation initiated: No Hx Alcohol Use: No Drug/Substance Use Hx: No Substance Use Type: None Hx Substance Use Treatment: No Review of Systems - Review of Systems Comments:: 06/12/17 14:47 GENERAL/CONSTITUTIONAL: No fever or chills. No weakness. HEAD, EYES, EARS, NOSE AND THROAT: No change in vision. No ear pain or discharge. No sore throat. CARDIOVASCULAR: No chest pain or shortness of breath RESPIRATORY: No cough, wheezing, or hemoptysis. GASTROINTESTINAL: No nausea, vomiting, diarrhea or constipation. GENITOURINARY: No dysuria, frequency, or change in urination. MUSCULOSKELETAL: No joint or muscle swelling or pain. No neck or back pain. SKIN: No rash NEUROLOGIC: No headache, vertigo, loss of consciousness, or change in strength/ sensation. ENDOCRINE: No increased thirst. No abnormal weight change HEMATOLOGIC/LYMPHATIC: No anemia, easy bleeding, or history of blood clots. ALLERGIC/IMMUNOLOGIC: No hives or skin allergy. *Physical Exam - Vital Signs Last Vital Signs Temp Pulse Resp BP Pulse Ox 98.1 F 83 16 107/63 100 06/12/17 12:13 06/12/17 12:13 06/12/17 12:13 06/12/17 12:13 06/12/17 12:13 - Physical Exam Comments: 06/12/17 14:47 GENERAL: Awake, alert, and fully oriented, in no acute distress HEAD: No signs of trauma, normocephalic, atraumatic EYES: PERRLA, EOMI, sclera anicteric, conjunctiva clear ENT: Hearing grossly normal, nares patent, oropharynx clear without exudates. Moist mucosa NECK: Normal ROM, supple, no lymphadenopathy, JVD, or masses LUNGS: No distress, speaks full sentences, clear to auscultation bilaterally HEART: Regular rate and rhythm, normal S1 and S2, no murmurs, rubs or gallops, peripheral pulses normal and equal bilaterally. ABDOMEN: + Left sided nephrosotmy tube in place. C/D/I, with absent signs of infection or drainage. Clear yellow urinary drainage. Soft, nontender, normoactive bowel sounds. No guarding, no rebound. No masses. Neg CVA ttp. Neg suprapubic ttp. EXTREMITIES : Normal inspection, Normal range of motion, no edema. No clubbing or cyanosis. SKIN: Warm, Dry, normal turgor, no rashes or lesions noted Medical Decision Making - Medical Decision Making 06/12/17 14:31 26 yo F with h/o recent ED admission sepsis 2/2 pyelonephritis d/t left ureter nephrolithiasis/obstructive uropathy (05/27- 06/03 ) s/p L nephrostomy tube placement ( day 9 ) who p/w nephrostomy tube removal. Patient states that she attempted to have L nephrostomy tube taken out from Dr. Robi Patel, but request was declined d/t insurance refusal. Denies N/V, F/C, CP, SOB, abdominal pain, diarrhea, constipation, urinary complaints, dysuria, hematuria, lightheadedness,weakness, sensory changes. Physical exam notable for + Left sided nephrosotmy tube in place. C/D/I, with absent signs of infection or drainage. Clear yellow urinary drainage. HDS. There are currently no s/s of infection/cystitis/pyelnoprhitis. Patient AF, with absent suprapubic ttp or CVA ttp. Nephrostomy tube bag draining with no evidence of renal obstruction/ hydronephrosis or nephrostomy tube complication. ED Course: Per Dr. Garcia ( [phone]) he cannot remove nephrostomy tube before stone is treated. also urologist needs to accept 06/12/17 16:09 manager engine Kadi scheduled apt. for pt. at Dr. Kaveh John ( [address] ) June 13 at 15:00. Patient instructed to f/u with Kaveh John on apt. date and time. She was counseled by myself and Dr. Gill on indication for nephrostomy tube and potential tx. options moving forward. Patient stable and ready for d/c with return precautions. *DC/Admit/Observation/Transfer Diagnosis at time of Disposition: Nephrostomy status - Discharge Dispostion Disposition: HOME Condition at time of disposition: Stable Admit: No - Referrals Referrals: Fantasma Higginbotham MD [Staff Physician] - - Patient Instructions Printed Discharge Instructions: DI for Nephrostomy Additional Instructions: Please return to the emergency department with any new or worsening symptoms or concerns. Please follow up with your primary care physician within 72 hours. Please go to appointment with Dr. Higginbotham at 3:00 pm May,. Bring your picture ID and your insurance card, and discharge paperwork. Location is [facility] [place], [place]. Print Language: SYRIAC - Post Discharge Activity - Attestations Physician Attestion: 06/12/17 14:54 I attest to the information provided in this note.
[2017-06-12 16:09] LABS: URINE APPEARANCE CLOUDY; URINE BILIRUBIN NEGATIVE (<2.0 mg/dL); URINE BLOOD NEGATIVE (NEGATIVE); URINE COLOR YELLOW; URINE GLUCOSE (UA) NEGATIVE (NEGATIVE); URINE KETONE NEGATIVE (NEGATIVE); URINE NITRITE NEGATIVE (NEGATIVE); URINE PROTEIN NEGATIVE (NEGATIVE); URINE UROBILINOGEN NEGATIVE mg/dL (0.2-1.0)
[2017-06-12 16:16] LABS: URINE LEUK ESTERASE 1+ (NEGATIVE)
[2017-06-12 16:33] LABS: EPI CELLS MODERATE /HPF (FEW); URINE MUCUS RARE
== END 2017-06-12 16:29 | disposition home or self-care (01) ==
LOC: JERFT 12:08 → JER 12:08
DX: Z93.6 Other artificial openings of urinary tract status (principal); Z96.89 Presence of other specified functional implants; Z96.0 Presence of urogenital implants
CPT/HCPCS: 81003; 81015; 87086; 87186; 99282-25

== ENCOUNTER 2017-06-18 08:57 | Day surgery (SDC) | payer OTHER ==
[2017-06-15 09:11] VITALS: BMI 26.5
[2017-06-18] MEDS ORDERED: PROMETHAZINE HCL 25 MG/1 ML VIAL IVPUSH PRN (10:52)
[2017-06-18] MEDS ORDERED: ONDANSETRON 4 MG/2 ML VIAL IVPUSH PRN (10:52)
[2017-06-18] MEDS ORDERED: oxyCODONE HCL 5 MG TABLET PO PRN (10:52)
[2017-06-18] MEDS ORDERED: LACTATED RINGERS SOLUTION 1,000 ML IV SCH (11:00)
[2017-06-18] MEDS ORDERED: MIDAZOLAM HCL 2 MG/2 ML SINGLE DOSE VIAL ONE (11:24)
[2017-06-18] MEDS ORDERED: PROPOFOL 20 ML ONE (11:28)
[2017-06-18] MEDS ORDERED: IOHEXOL 300 MG/ML INFUS..BTL IJ ONE (11:50)
[2017-06-18 13:55] VITALS: TEMP 98
--- NOTE | 2017-06-18 14:04 | OP ---
Operative Note - Note: Operative Date: 06/18/17 Pre-Operative Diagnosis: left ureteral stone with left nephrostomy tube Operation: cystoscopy/left retrograde pyelogram/left ureteroscopic laser lithotripsy and stone basketing with stent placement/removal of left nephrostomy tube Findings: 8 mm obstructing and impacted mid-ureteral stone Post-Operative Diagnosis: Same as Pre-op Surgeon: Fantasma Higginbotham Anesthesia: General Specimens Removed: ureteral stones/nephrostomy tube Drains & Tubes with Location: 09/09 left ureteral stent
[2017-06-18] MEDS ORDERED: PROMETHAZINE HCL 25 MG/1 ML VIAL ONE (14:31)
[2017-06-18] MEDS ORDERED: PROMETHAZINE HCL 25 MG/1 ML VIAL IVPUSH ONE (14:35)
[2017-06-18] MEDS ORDERED: KETOROLAC TROMETHAMINE 30 MG/1 ML VIAL ONE (15:28)
[2017-06-18] MEDS ORDERED: KETOROLAC TROMETHAMINE 30 MG/1 ML VIAL IVPUSH ONE ×2 (15:39→15:41)
[2017-06-18 15:54] VITALS: BP 112/65; PULSE 78
--- NOTE | 2017-06-18 20:59 | OP ---
DATE OF OPERATION: 06/18/2017 PREOPERATIVE DIAGNOSIS: Left ureteral stone status post left nephrostomy tube placement. POSTOPERATIVE DIAGNOSIS: Left ureteral stone status post left nephrostomy tube placement. PROCEDURE: Cystoscope, left retrograde pyelogram, left ureteroscopic laser lithotripsy, left ureteral stone basketing, left ureteral stent placement, and removal of left nephrostomy tube. ATTENDING: Fantasma Higginbotham M.D. ANESTHESIA: General. OPERATION: Patient was brought in the operating room, placed in a supine position on the operating room table. General anesthesia and preoperative antibiotics were administered. The patient was then placed in the dorsal lithotomy position and prepped and draped in the usual sterile manner. Cystoscopy was performed and no stones or neoplasm were noted within the bladder. The patient has a functional left nephrostomy tube present. At this point, a retrograde pyelogram was performed which showed an obstructing mid ureteral stone that measured 8+ mm in size. A wire was placed with mild difficulty into the left collecting system. At this point, ureteroscopy was performed. The stone was seen. Laser lithotripsy utilizing Zaman laser was performed. The stone was impacted and caused significant inflammation of the area of the ureter. Stone was fragmented adequately, and fragments were basketed under direct ureteroscopic visualization with a stone basket. Stone samples were sent to pathology for evaluation. Once this was accomplished, a 6 Kinyarwanda 24-cm stent was placed utilizing the Seldinger technique. No complication was noted. The patient tolerated the procedure very well. Once the stent was in place, the left nephrostomy tube was removed under fluoroscopic visualization. There was excellent positioning of the left ureteral stent. DISPOSITION: Disposition of the patient to the recovery room. No complications were noted. The patient tolerated the procedure very well. Lisa [id number]
--- NOTE | 2017-06-19 14:01 | PATH ---
Surgical Pathology Report Patient Name: BEN BLAKE Med. Rec. 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 B. LEFT KIDNEY STONE, EXTRACTION: CALCULI SUBMITTED FOR CHEMICAL ANALYSIS (gross only). Electronically Signed Jarred Carlisle M.D. Gross Description A. Received fresh labeled "removed nephrostomy," are 2 blue portions of tubing measuring 9.0 and 18.0 cm in length, consistent with a disrupted nephrostomy tube. No soft tissue is present. No sections are submitted, gross only. B. Received fresh labeled "kidney stone left," are 4 dumont-gabriel calculi ranging from 0.1-0.2 cm in greatest dimension. The specimen is sent for chemical analysis. DL/06/18/2017 saudi06/18/2017
[2017-06-30 00:12] LABS: CA OXALATE MONOHYDR. 70 % (.); CALCIUM PHOSPHATE 20 % (.); WEIGHT 11.8 mg (.)
== END 2017-06-18 16:10 | disposition home or self-care (01) ==
LOC: JASU-SURG 08:57
PROVIDERS: ATTEND Urology
PROC: 0TF78ZZ Fragmentation in Left Ureter, Via Natural or Artificial Opening Endoscopic (ICD-10-PCS; principal; 2017-06-18 10:00)
PROC: 0T778DZ Dilation of Left Ureter with Intraluminal Device, Via Natural or Artificial Opening Endoscopic (ICD-10-PCS; 2017-06-18 10:00)
PROC: 0TP5X0Z Removal of Drainage Device from Kidney, External Approach (ICD-10-PCS; 2017-06-18 10:00)
PROC: BT1FYZZ Fluoroscopy of Left Kidney, Ureter and Bladder using Other Contrast (ICD-10-PCS; 2017-06-18 10:00)
DX: N20.1 Calculus of ureter (principal)
CPT/HCPCS: 36415; 76000-TC-FY; 82360; 84703; 88300-TC; 94760

== ENCOUNTER 2018-01-20 11:39 | Emergency (ER) | payer OTHER ==
[2018-01-20 11:43] VITALS: BMI 27.6
--- NOTE | 2018-01-20 12:05 | PDOC ---
History of Present Illness - General Chief Complaint: Pain Stated Complaint: ,Possible/ABD PAIN Time Seen by Provider: 01/20/18 11:56 History Source: Patient - History of Present Illness Initial Comments: 01/20/18 12:05 Geovanni Molina is a 27 year old A0 French speaking woman with a history pertinent for left renal calculi and proteus infection, hydronephrosis, nephrostomy, lithotripsy, and stent placement (06/2017) who presents with new R sided kidney found [address] Higginbotham and positive test yesterday and LNMP of 12/08/17. The patient complains of some nausea and bilateral lower abdominal pressure, which she had attributed to her kidney stones. She denies fevers, chest pain, shortness of breath, headaches, vaginal discharge or bleeding, diarrhea, constipation. She denies any history of STDs. She admits to travelling 10 days ago on a 7 hour flight to [place]. She does have a PCP or [facility]. She has no other complaints at bedside. Past History - Past Medical History Allergies/Adverse Reactions: Allergies Allergy/AdvReac Type Severity Reaction Status Date / Time No Known Allergies Allergy Verified 01/20/18 11:43 Home Medications: Ambulatory Orders Doxylamine Succinate/Vit B6 [Diclegis 10-10 mg Tablet] 1 each PO DAILY #14 tablet. 01/20/18 Doxylamine Succinate/Vit B6 [Diclegis Dr 10-10 mg Tablet] 1 each PO DAILY 14 Days tablet. 01/20/18 Anemia: No Asthma: No Cancer: No Cardiac Disorders: No CVA: No COPD: No CHF: No Dementia: No Diabetes: No GI Disorders: No Disorders: Yes (h/o kidney stones) HTN: No Hypercholesterolemia: No Kidney Stones: Yes Liver Disease: No Seizures: No Thyroid Disease: No - Suicide/Smoking/Psychosocial Hx Smoking History: Never smoked Have you smoked in the past 12 months: No Hx Alcohol Use: Yes (occas) Drug/Substance Use Hx: No Substance Use Type: Alcohol Hx Substance Use Treatment: No *Physical Exam - Vital Signs Last Vital Signs Temp Pulse Resp BP Pulse Ox 98 F 95 H 18 134/73 99 01/20/18 11:41 01/20/18 11:41 01/20/18 11:41 01/20/18 11:41 01/20/18 11:41 - Physical Exam Comments: 01/20/18 12:46 GENERAL: Awake, alert, and fully oriented, in no acute distress HEAD: No signs of trauma, normocephalic, atraumatic EYES: EOMI, sclera anicteric, conjunctiva clear ENT: oropharynx clear without exudates. Moist mucosa NECK: Normal ROM, supple LUNGS: No distress, speaks full sentences, clear to auscultation bilaterally HEART: Regular rate and rhythm, normal S1 and S2, no murmurs, rubs or gallops, peripheral pulses normal and equal bilaterally. ABDOMEN: Soft, + LLQ tenderness to palpation, normoactive bowel sounds. No guarding, no rebound. No masses BACK: bilateral CVA tenderness EXTREMITIES : Normal inspection, Normal range of motion, no edema. No clubbing or cyanosis. NEUROLOGICAL: Cranial nerves II through XII grossly intact. Normal speech, normal gait, no focal sensorimotor deficits SKIN: Warm, Dry, normal turgor, no rashes or lesions noted PELVIC: closed os, no lesions on cervix or vaginal brito, no cervical motion tenderness ED Treatment Course - LABORATORY CBC & Chemistry Diagram: 01/20/18 13:01 01/20/18 13:01 Medical Decision Making - Medical Decision Making 01/20/18 12:46 Geovanni Molina is a 27 year old A0 French speaking woman with a history pertinent for left renal calculi and proteus infection, hydronephrosis, nephrostomy, lithotripsy, and stent placement (06/2017) who presents with new R sided kidney found [address] Higginbotham and positive test yesterday and LNMP of 12/08/17. The patient complains of some nausea and bilateral lower abdominal pressure, which she had attributed to her kidney stones. DDX including but not limited to: nephrolithiasis vs IUP vs ectopic vs UTI vs pyelonephritis W/U: - cbc, cmp, beta-HCG - TVUS - Abd US TX: - 1L NS ED Course: 01/20/18 12:50 Dr. Kaveh John contacted. Pending call back 01/20/18 12:59 This editorial writer spoke w/ Dr. Higginbotham who notes the patient does not have a kidney stone that would require surgery and that the patient can be seen in his office on Sunday. 01/20/18 14:08 TVUS: IUP of 6 weeks and 3 days with FHR of 113bpm Renal US: No changes. All labwork unremarkable. 01/20/18 14:10 Patient stable for discharge. Informed of all lab and imaging results. OBGYN, PCP referrals. Anahy aware will f/u patient. Given follow up instructions and strict return precautions. Patient expressed understanding and agree to plan. *DC/Admit/Observation/Transfer Diagnosis at time of Disposition: - Discharge Dispostion Disposition: HOME Condition at time of disposition: Stable Decision to Admit order: No - Prescriptions Prescriptions: Doxylamine Succinate/Vit B6 [Diclegis Dr 10-10 mg Tablet] 1 each PO DAILY 14 Days tablet. Doxylamine Succinate/Vit B6 [Diclegis Dr 10-10 mg Tablet] 1 each PO DAILY #14 tablet.dr - Referrals Referrals: ON STAFF,NOT [Primary Care Provider] - [facility] [Provider Group] Linda Garcia MD [Staff Physician] - - Patient Instructions Printed Discharge Instructions: Managing Symptoms of , DI for Abdominal Pain -- Early Additional Instructions: You were seen in the ED for complaints of lower abdominal pain and newfound . In the ED you were evaluated with labwork and imaging. Your results were significant for intrauterine 6 weeks and 3 days and no kidney stones. There does not appear to be an acute need for immediate hospitalization. You are advised to follow up with your Primary Care Physician within 1 week. You were given a referral to [facility] and [facility] and are advised to follow up within [address] Higginbotham (your urologist) was contacted was made aware of your visit to the ED. He will see you in his clinic on 01/22/18. Return to the ED immediately if you experience worsening abdominal pain, vaginal discharge or bleeding, nausea, vomiting, diarrhea, constipation, or fever. Usted fue atendido en el servicio de urgencias por quejas de dolor en la parte inferior del abdomen y embarazo recin descubierto. En el servicio de urgencias se evalu con trabajo de laboratorio e imgenes. Hilaria resultados fueron significativos para el embarazo intrauterino de 6 semanas y 3 solis y sin clculos renales. No parece thelma jose necesidad aguda de hospitalizacin inmediata. Se recomienda realizar un seguimiento con rader mdico de atencin primaria dentro de 1 semana. Recibi jose derivacin a la clnica de medicina interna y al obstetra / gineclogo y se le recomienda hacer un seguimiento dentro de [address]. [address] Higginbotham (rader urlogo) fue contactado y se le inform de rader visita al ED. l te ryan en rader clnica el 01/22/18. Regrese a la miguel de urgencias inmediatamente si experimenta un empeoramiento del dolor abdominal, flujo vaginal o sangrado, nuseas, vmitos, diarrea, estreimiento o fiebre. - Post Discharge Activity
[2018-01-20 12:53] LABS: URINE APPEARANCE SLCLOUDY; URINE BILIRUBIN NEGATIVE (<2.0 mg/dL); URINE COLOR YELLOW; URINE GLUCOSE (UA) NEGATIVE (NEGATIVE); URINE KETONE NEGATIVE (NEGATIVE); URINE LEUK ESTERASE NEGATIVE (NEGATIVE); URINE NITRITE NEGATIVE (NEGATIVE); URINE PROTEIN NEGATIVE (NEGATIVE); URINE UROBILINOGEN NEGATIVE mg/dL (0.2-1.0)
[2018-01-20] MEDS ORDERED: SODIUM CHLORIDE 1,000 ML IV SCH (13:00)
[2018-01-20 13:04] LABS: BASO % 0.8 % (0-2.0); EOS % 5.3 % (0-4.5); HEMATOCRIT 38.5 % (32.4-45.2); HEMOGLOBIN 13.5 GM/dL (10.7-15.3); LYMPH % 19.4 % (8-40); MCH 31.1 pg (25.7-33.7); MCHC 34.9 g/dl (32.0-36.0); MEAN CELL VOLUME 89.2 fl (80-96); MEAN PLT VOLUME 9.1 fl (7.5-11.1); NEUT % 68.5 % (42.8-82.8); PLATELET COUNT 248 K/MM3 (134-434); RBC 4.32 M/mm3 (3.60-5.2); RDW 13.9 % (11.6-15.6); WHITE BLOOD COUNT 12.5 K/mm3 (4.0-10.0)
[2018-01-20 13:42] LABS: ALBUMIN 3.1 g/dl (3.4-5.0); ALK PHOS 55 U/L (45-117); ANION GAP 7 MMOL/L (8-16); BILIRUBIN,TOTAL 0.2 mg/dL (0.2-1); BLOOD UREA NITROGEN 9 mg/dL (7-18); CALCIUM 8.8 mg/dL (8.5-10.1); CHLORIDE 105 mmol/L (98-107); CO2 25 mmol/L (21-32); CREATININE 0.6 mg/dL (0.55-1.3); GLUCOSE,RANDOM 108 mg/dL (74-106); POTASSIUM 4.1 mmol/L (3.5-5.1); SGOT/AST 11 U/L (15-37); SGPT/ALT 16 U/L (13-61); SODIUM 137 mmol/L (136-145)
[2018-01-20 14:34] LABS: ACANTHOCYTES 0; ANISOCYTOSIS 0; HELMET CELLS 0; HOWELL-JOLLY BODIES 0; MACROCYTOSIS 0; OVALOCYTE 0; PLATELET ESTIMATE NORMAL; ROULEAU 0; SICKELED CELLS 0; TARGET CELLS 0; TEAR DROP CELLS 0; TOXIC GRANULATION 0
--- NOTE | 2018-01-20 14:56 | PDOC ---
Attending Attestation - Resident Resident Name: Theresa Blevins - ED Attending Attestation I have performed the following: I have examined & evaluated the patient, The case was reviewed & discussed with the resident, I agree w/resident's findings & plan - HPI HPI: 01/20/18 14:55 Jesse Molina is a 27 year old A0 Iranian speaking woman with a history pertinent for left renal calculi and proteus infection, hydronephrosis, nephrostomy, lithotripsy, and stent placement (06/2017) who presents with new R sided kidney found [address] Higginbotham and positive test yesterday and LMP of 12/08/17 - Physicial Exam PE: 01/20/18 14:56 agree with phys exam as documented NAD, well appearing, PERRL, EOMI, MMM, nl conjunctiva, anicteric; neck supple. lungs clear, RRR, abdomen soft nontender. JOHNS x4, no focal neuro deficits. No peripheral edema. normal color for ethnicity, WWP. - Medical Decision Making 01/20/18 14:54 Jesse Molina is a 27 year old A0 Iranian speaking woman with a history pertinent for left renal calculi and proteus infection, hydronephrosis, nephrostomy, lithotripsy, and stent placement (06/2017) who presents with new R sided kidney found [address] Higginbotham and positive test yesterday and LMP of 12/08/17 Renal sono neg for stones. UA neg for infection. Leukocytosis noted, 12.5K , but also and physiologic wbc ct can be present. Lytes and Cr normal. TVUS confirms Live IUP, unremarkable ovaries. 6 weeks gestation. Urology cs with Dr. Higginbotham, can follow up as outpatient with unremarkable workup diclegis PRN for n/v in , safe efficacy. hydration and supportive measures encouraged. Pt to be discharged in stable condition. Patient and family made aware of impression and plan, return precautions discussed (including but not limited to worsening pain or symptoms), fevers, or signs of infection, chest pain, respiratory distress, inability to tolerate oral intake, dehydration, syncope, or neurologic changes). Follow up with PMD and/or specialist as recommended, follow up information provided, take medications as instructed for duration of time. continue with supportive care, avoid triggers and precipitants. All questions answered to patient's satisfaction and expressed understanding and comfort with this.
[2018-01-20 15:13] VITALS: BP 98/61; PULSE 90; TEMP 98.1
== END 2018-01-20 15:24 | disposition home or self-care (01) ==
LOC: JER 11:39
DX: O26.891 Other specified pregnancy related conditions, first trimester (principal); R10.32 Left lower quadrant pain; R11.0 Nausea; O26.831 Pregnancy related renal disease, first trimester; N28.89 Other specified disorders of kidney and ureter; Z96.0 Presence of urogenital implants; Z3A.01 Less than 8 weeks gestation of pregnancy
CPT/HCPCS: 36415; 76775-TC; 76817-TC; 80053; 81003; 84702; 85025; 87086; 99283-25

== ENCOUNTER 2018-09-02 11:05 | Inpatient (IN) | payer OTHER ==
[2018-09-02] MEDS ORDERED: ELECTROLYTE-148 SOLN 500 ML IV ONE (11:40)
[2018-09-02] MEDS ORDERED: ELECTROLYTE-148 SOLN 1,000 ML IV SCH (11:45)
[2018-09-02 11:50] VITALS: BMI 38.5
[2018-09-02] MEDS ORDERED: morphine SULFATE/Preservative Free 0.5 MG/ML (1cc Syringe) EP ONE (12:01)
--- NOTE | 2018-09-02 12:13 | HP ---
Past Medical History - Admission Chief Complaint: Scheduled RLTCS History of Present Illness: 27yo @ 38.3wks here for scheduled RLTCS. Patient non compliant with GDMA2 management. MFM recommended delivery at 38 weeks. No VB/LOF. No ctx. 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: Alzheimer's, CVA, Dementia, Migraine, Multiple Sclerosis, Peripheral Neuropathy, Parkinson's, Seizure, Syncope, TIA, Vertigo, Other Cardiovascular: No: AFIB, Aneurysm, Aortic Insufficiency, Aortic Stenosis, CAD, CHF, Deep Vein Thrombosis, HTN, Hyperlipdemia, ID, Mitral Insufficiency, Mitral Stenosis, Murmur, Pulmonary Hypertension, Other Pulmonary: No: Asthma, Bronchitis, Cancer, COPD, O2 Dependent, Pneumonia, Previously Intubated, Pulmonary Embolus, Pulmonary Fibrosis, Sleep Apnea, Other Gastrointestinal: No: Ascites, Cancer, Constipation, Crohn's Disease, Diverticulitis, Diverticulosis, Esophageal Varices, Gastritis, GERD, GI Bleed, Hemorrhoids, Hiatal Hernia, Inflamatory Bowel Disease, Irritable Bowel Disease, Pancreatitis, Peptic Ulcer Disease, Ulcerative Colitis, Other Hepatobiliary: No: Cirrhosis, Cholelithiasis, Cholecystitis, Choledocholithiasis , Hepatitis A, Hepatitis B, Hepatitis C, Other Renal/: No: Renal Failure, Renal Inusuff, BPH, Cancer, Hematuria, Hemodialysis , Neurogenic Bladder, Renal Calculi, UTI, Other ...: 2 ...Para: 1 ...Term: 0 ...: 1 ...Spon : 0 ...Induced : 0 ...Multiple Gestation: 0 ...LMP: 12/07/17 ... Weeks Gestation by Dates: 38.3 ...EDC by Dates: 09/13/18 ...EDC by Sono: 09/12/18 Heme/Onc: No: Anemia, B12 Deficiency, Bleeding Disorder, Cancer, Current Chemotherapy, Current Radiation Therapy, Hemochromatosis, Hypercoaguable State, Myeloproliferative Synd, Sickle Cell Disease, Sickle Cell Trait, Thrombocytopenia, Other Infectious Disease: No: AIDS, C-Diff, Herpes Zoster, HIV, MRSA, STD's, Tuberculosis, VREF, Other Psych: No: Addictions, Anxiety, Bipolar, Depression, Panic, Psychosis, Schizophrenia, Other Musculoskeletal: No: Bursitis, Chronic low back pain, Hemiparesis, Hemiplegia, Osteoarthritis, Paraplegia, Other Rheumatology: No: Fibromyalgia, Gout, Lupus, Rheumatoid Arthritis, Sarcoidosis, Vasculitis, Other ENT: No: Allergic Rhinitis, Sinusitis, Other Endocrine: No: Necedah's Disease, Rico's Disease, Diabetes Insipidus, Diabetes Mellitus, Hyperparathyroidism, Hyperthyroidism, Hypothyroidism, Osteopenia, SIADH, Other Dermatology: No: Basal Cell, Cellulitis, Eczema, Melanoma, Psoriasis, Squamous Cell, Other - Past Surgical History Past Surgical History: Yes: Hx Myomectomy: No Hx Transabdominal Cerclage: No - Smoking History Smoking history: Never smoked Have you smoked in the past 12 months: No - Alcohol/Substance Use Hx Alcohol Use: No History of Substance Use: reports: None - Social History Usual Living Arrangement: Yes: Alone ADL: Independent History of Recent Travel: No Home Medications - Allergies Allergies/Adverse Reactions: Allergies Allergy/AdvReac Type Severity Reaction Status Date / Time No Known Allergies Allergy Verified 09/02/18 11:35 - Home Medications Home Medications: Ambulatory Orders Glyburide 2.5 mg PO AM 08/16/18 Glyburide 2.5 mg PO AM 08/16/18 Glyburide 5 mg PO HS 08/16/18 Physical Exam - Maternity Constitutional: Yes: Well Nourished, No Distress, Calm Eyes: Yes: WNL, Conjunctiva Clear, EOM Intact HENT: Yes: WNL, Atraumatic, Normocephalic Neck: Yes: WNL, Supple, Trachea Midline Cardiovascular: Yes: WNL, Regular Rate and Rhythm Breast(s): Yes: WNL - Abdominal Exam/OB Number of Fetuses: Single Presentation: Vertex Contractions: No Intensity: Unaware Monitor Mode: External Category: I Accelerations: Non-Uniform Decelerations: None - Vaginal Exam/OB Vaginal Bleediing: No Speculum Exam: No Amniotic Membrane Status: Intact - Physical Exam Edema: No Assessment/Plan 27yo @ 38.3wks here for scheduled RLTCS for poorly controlled GDMA2 Admit to L&D NPO, IVFs Ancef SCDS, Haas Risk of procedure reviewed including bleeding, infection, injury to surrounding organs and vessels (bladder/bowel/adnexa). Anticipate RLTCS Cecily Garcia MD
[2018-09-02] MEDS ORDERED: morphine SULFATE/PF 0.5 MG/ML (2cc Syringe - QUVA) ONE (12:18)
[2018-09-02] MEDS ORDERED: ceFAZolin SODIUM 1 GM VIAL ONE (12:19)
[2018-09-02 12:34] LABS: ALBUMIN 2.6 g/dl (3.4-5.0); BILIRUBIN,TOTAL 0.2 mg/dL (0.2-1); BLOOD UREA NITROGEN 12.6 mg/dL (7-18); CALCIUM 9.2 mg/dL (8.5-10.1); CREATININE 0.6 mg/dL (0.55-1.3); POTASSIUM 4.3 mmol/L (3.5-5.1); TOT PROT 6.6 g/dl (6.4-8.2)
[2018-09-02] MEDS ORDERED: OXYTOCIN 10 UNITS/ML VIAL ONE (13:07)
[2018-09-02] MEDS ORDERED: MIDAZOLAM HCL 2 MG/2 ML SINGLE DOSE VIAL ONE (13:12)
[2018-09-02] MEDS: OXYTOCIN 20 UNITS in 0.9% NS 20 UNIT/1,000 ML INFUS.BAG IV SCH (13:30)
--- NOTE | 2018-09-02 13:41 | OP ---
Operative Note - Note: Operative Date: 09/02/18 Pre-Operative Diagnosis: Prior C/S, 38 week , Poorly controlled GDMA2 Operation: Repeat Findings: VFI, WINSTON, No nuchal. No meconium. Weight pending. Apgars 9/9. Normal tubes and ovaries bilaterally. Post-Operative Diagnosis: Same as Pre-op Surgeon: Linda Garcia Warehouse Guard: Kolton Salcido Anesthesia: Spinal Estimated Blood Loss (mls): 500 Drains, Volume Out (mls): 200 (clear urine) Operative Report Dictated: Yes
[2018-09-02] MEDS ORDERED: METHYLERGONOVINE MALEATE 0.2 MG/1 ML AMP IM PRN (14:16)
[2018-09-02] MEDS ORDERED: CITRIC ACID/SODIUM CITRATE 30 ML UNIT-DOSE CUP PO ONE (14:16)
[2018-09-02] MEDS ORDERED: oxyCODONE HCL 5 MG TABLET PO PRN (14:16)
[2018-09-02] MEDS ORDERED: IBUPROFEN 800 MG/8 ML IJ IVPB PRN (14:17)
[2018-09-02] MEDS: ONDANSETRON 4 MG/2 ML VIAL IVPUSH PRN ×2 (16:41→19:44)
[2018-09-02] MEDS: FERROUS SO4 325 MG TABLET (FP) PO SCH (17:59)
--- NOTE | 2018-09-02 22:23 | OP ---
DATE OF OPERATION: 09/02/2018 PREOPERATIVE DIAGNOSES: Prior section, 38-week , poorly-controlled gestational diabetes A2. POSTOPERATIVE DIAGNOSES: Prior section, 38-week , poorly-controlled gestational diabetes A2. PROCEDURE: Repeat low transverse section. ANESTHESIA: Spinal. INTRAVENOUS FLUIDS: Per anesthesia record. ESTIMATED BLOOD LOSS: 500. URINE OUTPUT: Clear urine 200 mL at the end of the procedure. SURGEON: Linda Garcia MD ELECTRIC POWER LINE REPAIRER: МАРИЯ Milian FINDINGS: Viable female , WINSTON position. No nuchal. No meconium. Weight pending. Apgars 9 and 9. Normal tubes and ovaries bilaterally. COMPLICATIONS: None. CONDITION: Stable to recovery room. NATURE OF THE PROCEDURE: After the appropriate consents were signed, patient was taken to the operating room. Spinal anesthesia was administered. The abdomen was then prepped and draped in a normal sterile fashion. A Haas catheter had been inserted prior to entry into the operating room. A timeout was performed, confirming correct patient and procedure. The patient's prior Pfannenstiel incision was quite low onto the mons; so, a decision made for an appropriate new Pfannenstiel incision was made 2 cm above the pubic symphysis. The incision was made with a scalpel and carried through to the underlying layers until the fascia was nicked in the midline. The fascia was then extended laterally with the Vazquez scissors. The inferior aspect of the fascia was grasped with the Westley clamps, tented upwards, and the rectus muscle was dissected off bluntly and with the Vazquez scissors. Attention was then paid to the superior aspect which was taken down in a similar fashion. The rectus muscles were grasped, tented upwards, and in the midline with a scalpel. The peritoneum was then identified and entered bluntly with the Metzenbaum scissors. They were manually. The bladder blade was then inserted. Bladder flap was then created with Metzenbaums and digitally. The bladder blade was reinserted. The uterus was incised in a low transverse fashion. Clear amniotic fluid was noted. The infant's head was delivered without difficulty. There was no nuchal. No meconium. Anterior shoulder was delivered without difficulty. Infant was vigorous. Cord was clamped and cut. was handed off to the awaiting pediatric staff. The placenta was then removed manually. The uterus was cleared of all clot and debris. The hysterotomy was closed in 2 layers with a 1-0 Vicryl with good hemostasis noted. The adnexa were inspected and noted to be normal. The gutters were cleared of all clot and debris. Hysterotomy was re-examined, noted to be hemostatic. The muscle had been closed with a 2-0 chromic. The fascia was closed with a 0 Vicryl. Subcutaneous tissue was closed with a 3-0 plain. The skin was closed with a 4-0 Biosyn. The appropriate bandages were placed. All sponge, lap, and needle counts were correct x3. Patient did receive 2 g of Ancef at the start of the procedure. She was taken from the operating room to the recovery area in stable condition. LINDA GARCIA MD [id number]
[2018-09-03] MEDS: OXYTOCIN 20 UNITS in 0.9% NS 20 UNIT/1,000 ML INFUS.BAG IV SCH ×2 (00:17→20:05)
[2018-09-03] MEDS: IBUPROFEN 600 MG TABLET (FP) PO PRN ×3 (05:17→22:19)
[2018-09-03] MEDS: SIMETHICONE 80 MG TAB.CHEW (FP) PO PRN ×2 (05:18→22:19)
--- NOTE | 2018-09-03 05:22 | PN ---
Post Progress Note - Subjective Subjective: 27 yo Para 2, status post repeat , seen and evaluated. Doing well except for mild incision pain. Post Day: 1 Type of Delivery: Repeat C/S Vital Signs: Vital Signs Temperature 98 F 09/03/18 02:00 Pulse Rate 100 H 09/03/18 02:00 Respiratory Rate 18 09/03/18 05:00 Blood Pressure 112/67 09/03/18 02:00 O2 Sat by Pulse Oximetry (%) 99 09/02/18 22:00 Breast Exam: Yes: Soft Uterus: Yes: Fundus @ umbilicus Incision: Yes: Dressing dry and intact Abdomen/GI: Yes: Abdomen soft, Tolerating PO Lochia: Yes: Rubra Lochia, amount: Small Extremities: Yes: Calves non-tender Activity: Other (She's lying in bed) Problem List - Problems (1) Status post repeat low transverse section Code(s): Z98.891 - HISTORY OF UTERINE SCAR FROM PREVIOUS SURGERY Assessment/Plan Status post repeat low transverse Ambulation Analgesia as needed Continue post op care
[2018-09-03 08:14] LABS: BASO % 0.5 % (0-2.0); EOS % 1.6 % (0-4.5); HEMATOCRIT 29.3 % (32.4-45.2); HEMOGLOBIN 9.3 GM/dL (10.7-15.3); LYMPH % 15.2 % (8-40); MCH 24.3 pg (25.7-33.7); MCHC 31.8 g/dl (32.0-36.0); MEAN CELL VOLUME 76.3 fl (80-96); MEAN PLT VOLUME 9.6 fl (7.5-11.1); NEUT % 74.7 % (42.8-82.8); PLATELET COUNT 216 K/MM3 (134-434); RBC 3.84 M/mm3 (3.60-5.2); RDW 20.5 % (11.6-15.6); WHITE BLOOD COUNT 13.4 K/mm3 (4.0-10.0)
[2018-09-03] MEDS: PRENATAL VITAMINS W/ FOLIC ACID TABLET (FP) PO SCH (09:33)
[2018-09-03] MEDS: FERROUS SO4 325 MG TABLET (FP) PO SCH ×2 (09:33→16:29)
[2018-09-03 12:01] LABS: ANISOCYTOSIS 1+; MACROCYTOSIS 0; PLATELET ESTIMATE NORMAL
--- NOTE | 2018-09-03 13:26 | PN ---
HC Provider Note Provider Note: Anesthesia Post-op Pt s/p spinal for c/section Pt found awake and alert -- denies h/a, n/v, urinary retention reports mild puritis not requiring medication Ambulating well VSS no apparent anesthesia complications Isaac Carmen.
[2018-09-03] MEDS ORDERED: BISACODYL 10 MG SUPP.RECT RC PRN (14:16)
[2018-09-03] MEDS: ACETAMINOPHEN 325 MG TABLET (FP) PO PRN ×2 (16:29→22:20)
--- NOTE | 2018-09-04 07:23 | PN ---
Post Progress Note - Subjective Subjective: Ambulating, tolerating PO, lochia decreased, voiding, encouraged to request pain control as needed, attempting to breast feed. Type of Delivery: Repeat C/S Vital Signs: Vital Signs Temperature 98.4 F 09/03/18 22:00 Pulse Rate 92 H 09/03/18 22:00 Respiratory Rate 18 09/03/18 22:00 Blood Pressure 121/64 09/03/18 22:00 O2 Sat by Pulse Oximetry (%) 99 09/02/18 22:00 Breast Exam: Yes: Other (deferred) Uterus: Yes: Fundus Firm Incision: Yes: Sutures intact (intact and closed) Abdomen/GI: Yes: Abdomen soft (appropriately tender) Lochia, amount: Small Extremities: Yes: Calves non-tender Activity: Ambulating - Labs Labs: CBC WBC 13.4 K/mm3 (4.0-10.0) H 09/03/18 07:20 RBC 3.84 M/mm3 (3.60-5.2) 09/03/18 07:20 Hgb 9.3 GM/dL (10.7-15.3) L 09/03/18 07:20 Hct 29.3 % (32.4-45.2) L 09/03/18 07:20 MCV 76.3 fl (80-96) L 09/03/18 07:20 MCH 24.3 pg (25.7-33.7) L 09/03/18 07:20 MCHC 31.8 g/dl (32.0-36.0) L 09/03/18 07:20 RDW 20.5 % (11.6-15.6) H 09/03/18 07:20 Plt Count 216 K/MM3 (134-434) 09/03/18 07:20 MPV 9.6 fl (7.5-11.1) 09/03/18 07:20 Absolute Neuts (auto) 10.0 K/mm3 (1.5-8.0) H 09/03/18 07:20 Neutrophils % 74.7 % (42.8-82.8) 09/03/18 07:20 Lymphocytes % 15.2 % (8-40) D 09/03/18 07:20 Monocytes % 8.0 % (3.8-10.2) 09/03/18 07:20 Eosinophils % 1.6 % (0-4.5) 09/03/18 07:20 Basophils % 0.5 % (0-2.0) 09/03/18 07:20 Nucleated RBC % 0 % (0-0) 09/03/18 07:20 Hypochromia 0 09/03/18 07:20 Platelet Estimate Normal 09/03/18 07:20 Polychromasia 0 09/03/18 07:20 Poikilocytosis 0 09/03/18 07:20 Anisocytosis 1+ 09/03/18 07:20 Microcytosis 1+ 09/03/18 07:20 Macrocytosis 0 09/03/18 07:20 Assessment/Plan POD # 2 in stable condition and adequate recovery. Pain control encouraged and desiring to see information systems consultant. PP/post precautions discussed. -D/C home tomorrow - consult -Continue PP care
[2018-09-04] MEDS: FERROUS SO4 325 MG TABLET (FP) PO SCH ×2 (09:38→17:33)
[2018-09-04] MEDS: IBUPROFEN 600 MG TABLET (FP) PO PRN ×2 (09:38→17:33)
[2018-09-04] MEDS: ACETAMINOPHEN 325 MG TABLET (FP) PO PRN ×2 (09:38→17:32)
[2018-09-04] MEDS: PRENATAL VITAMINS W/ FOLIC ACID TABLET (FP) PO SCH (09:38)
[2018-09-04] MEDS: SIMETHICONE 80 MG TAB.CHEW (FP) PO PRN ×2 (09:38→17:33)
[2018-09-05] MEDS: IBUPROFEN 600 MG TABLET (FP) PO PRN (06:25)
[2018-09-05] MEDS: ACETAMINOPHEN 325 MG TABLET (FP) PO PRN (06:26)
[2018-09-05 06:51] LABS: BASO % 0.8 % (0-2.0); EOS % 3.9 % (0-4.5); HEMATOCRIT 29.7 % (32.4-45.2); HEMOGLOBIN 9.4 GM/dL (10.7-15.3); LYMPH % 24.8 % (8-40); MCH 24.4 pg (25.7-33.7); MCHC 31.8 g/dl (32.0-36.0); MEAN CELL VOLUME 76.8 fl (80-96); MEAN PLT VOLUME 9.1 fl (7.5-11.1); NEUT % 63.5 % (42.8-82.8); PLATELET COUNT 236 K/MM3 (134-434); RBC 3.86 M/mm3 (3.60-5.2); RDW 20.4 % (11.6-15.6); WHITE BLOOD COUNT 11.3 K/mm3 (4.0-10.0)
--- NOTE | 2018-09-05 07:21 | PN ---
Post Progress Note Post Day: 3 Type of Delivery: Repeat C/S Vital Signs: Vital Signs Temperature 98.6 F 09/04/18 21:16 Pulse Rate 87 09/04/18 21:16 Respiratory Rate 18 09/04/18 21:16 Blood Pressure 127/82 09/04/18 21:16 O2 Sat by Pulse Oximetry (%) 99 09/02/18 22:00 Uterus: Yes: Fundus below umbilicus Incision: Yes: Dressing dry and intact, Sutures intact Abdomen/GI: Yes: Abdomen soft Lochia: Yes: Rubra Lochia, amount: Small Extremities: Yes: Calves non-tender Activity: Ambulating - Labs Labs: CBC WBC 13.4 K/mm3 (4.0-10.0) H 09/03/18 07:20 RBC 3.84 M/mm3 (3.60-5.2) 09/03/18 07:20 Hgb 9.3 GM/dL (10.7-15.3) L 09/03/18 07:20 Hct 29.3 % (32.4-45.2) L 09/03/18 07:20 MCV 76.3 fl (80-96) L 09/03/18 07:20 MCH 24.3 pg (25.7-33.7) L 09/03/18 07:20 MCHC 31.8 g/dl (32.0-36.0) L 09/03/18 07:20 RDW 20.5 % (11.6-15.6) H 09/03/18 07:20 Plt Count 216 K/MM3 (134-434) 09/03/18 07:20 MPV 9.6 fl (7.5-11.1) 09/03/18 07:20 Absolute Neuts (auto) 10.0 K/mm3 (1.5-8.0) H 09/03/18 07:20 Neutrophils % 74.7 % (42.8-82.8) 09/03/18 07:20 Lymphocytes % 15.2 % (8-40) D 09/03/18 07:20 Monocytes % 8.0 % (3.8-10.2) 09/03/18 07:20 Eosinophils % 1.6 % (0-4.5) 09/03/18 07:20 Basophils % 0.5 % (0-2.0) 09/03/18 07:20 Nucleated RBC % 0 % (0-0) 09/03/18 07:20 Hypochromia 0 09/03/18 07:20 Platelet Estimate Normal 09/03/18 07:20 Polychromasia 0 09/03/18 07:20 Poikilocytosis 0 09/03/18 07:20 Anisocytosis 1+ 09/03/18 07:20 Microcytosis 1+ 09/03/18 07:20 Macrocytosis 0 09/03/18 07:20 Assessment/Plan 27yo s/p RLTCS, POD#3 Routine PP care OOB, ambulate Labs reviewed Anticipate d/c to home today; follow up in the office in 7-10 days for incision check Cecily Garcia MD
--- NOTE | 2018-09-05 07:57 | DS ---
Physical Examination Vital Signs: Vital Signs Temperature 98.6 F 09/04/18 21:16 Pulse Rate 87 09/04/18 21:16 Respiratory Rate 18 09/04/18 21:16 Blood Pressure 127/82 09/04/18 21:16 O2 Sat by Pulse Oximetry (%) 99 09/02/18 22:00 Constitutional: Yes: Well Nourished, No Distress, Calm Eyes: Yes: WNL, Conjunctiva Clear, EOM Intact HENT: Yes: WNL, Atraumatic, Normocephalic Neck: Yes: WNL, Supple, Trachea Midline Cardiovascular: Yes: WNL, Regular Rate and Rhythm Respiratory: Yes: WNL, Regular, CTA Bilaterally Gastrointestinal: Yes: WNL, Normal Bowel Sounds Musculoskeletal: Yes: WNL Extremities: Yes: WNL Edema: No Integumentary: Yes: WNL Neurological: Yes: WNL, Alert, Oriented ...Motor Strength: WNL Psychiatric: Yes: WNL Labs: CBC, BMP 09/05/18 06:18 09/02/18 11:40 Discharge Summary Reason For Visit: Current Active Problems Status post repeat low transverse section (Acute) Procedures: Principal: RLTCS Hospital Course: Patient presented for a RLTCS She had an uncomplicated delivery She met all /postop milestones She was discharged home on POD#3 in stable condition Cecily Garcia MD Condition: Stable - Instructions Diet, Activity, Other Instructions: Regular Diet Follow up in one week for an incision check- on 09/[address] Garcia Referrals: Linda Garcia MD [Staff Physician] - Disposition: HOME - Home Medications Comprehensive Discharge Medication List: Ambulatory Orders Glyburide 2.5 mg PO AM 08/16/18 Glyburide 2.5 mg PO AM 08/16/18 Glyburide 5 mg PO HS 08/16/18 Ferrous Sulfate [Feosol] 325 mg PO DAILY #30 tablet 09/04/18 Ibuprofen [Motrin -] 600 mg PO QID PRN #28 tablet 09/04/18 Oxycodone HCl/Acetaminophen [Percocet 5-325 mg Tablet -] 1 - 2 tab PO Q6H PRN # 20 tab MDD 4 09/04/18
[2018-09-05 08:36] VITALS: BP 123/71; PULSE 78; TEMP 98.8
[2018-09-05] MEDS: FERROUS SO4 325 MG TABLET (FP) PO SCH (09:24)
[2018-09-05] MEDS: PRENATAL VITAMINS W/ FOLIC ACID TABLET (FP) PO SCH (09:25)
[2018-09-05 11:13] LABS: ANISOCYTOSIS 0; MACROCYTOSIS 0; PLATELET ESTIMATE NORMAL
--- NOTE | 2018-09-06 16:10 | PATH ---
Surgical Pathology Report Patient Name: BEN BLAKE [facility]. Rec. #: [id number] /Age/Gender: 1990 (Age: 27) / F Account: [id number] Location: [facility] OBS/CUSTOMS GUARD Taken: 09/02/2018 Received: 09/03/2018 Reported: 09/06/2018 Physicians: Linda Garcia Specimen(s) Received PLACENTA Clinical History , GBM on Glyburide Final Diagnosis PLACENTA: THIRD TRIMESTER PLACENTA WITH MILD CHRONIC DECIDUITIS. TRIVASCULAR CORD. MEMBRANES WITH NO DIAGNOSTIC ABNORMALITIES. Electronically Signed Darwin Wagoner M.D. Gross Description The specimen is received fresh labeled placenta and is a 488 gram, 17.0 x 16.0 x 2.8 cm. placenta with attached membranes and umbilical cord. The attached membranes are dumont, translucent with focal opacities and insert marginally. The umbilical cord measures 25 cm. in length and averages 1.1 cm. in diameter. The cord inserts eccentrically, 5 cm. to the nearest margin. No true knots or strictures are identified. Cut surface of the umbilical cord reveals 3 vessels. The surface is de luna-blue with minimal fibrin deposition and appropriate caliber vessels. The maternal surface is red-brown with focal defects. Sectioning reveals red-brown, spongy parenchyma. No lesions are identified. Sports Attorney sections are submitted in three cassettes as follows: 1- membrane rolls and umbilical cord; 2-3- full thickness sections of placenta. /09/05/2018 [facility]09/05/2018
== END 2018-09-05 12:40 | disposition home or self-care (01) | DRG 540 ==
LOC: JLDR 11:05 → J3W 15:36
PROVIDERS: ADMIT Obstetrics & Gynecology; ATTEND Obstetrics & Gynecology
PROC: 10D00Z1 Extraction of Products of Conception, Low, Open Approach (ICD-10-PCS; principal; 2018-09-02)
DX: O34.211 Maternal care for low transverse scar from previous cesarean delivery (principal); N85.8 Other specified noninflammatory disorders of uterus; O24.419 Gestational diabetes mellitus in pregnancy, unspecified control; Z3A.38 38 weeks gestation of pregnancy; Z37.0 Single live birth
CPT/HCPCS: 36415; 80053; 85025; 86850; 86900; 86901; 88307-TC

== ENCOUNTER 2022-01-28 23:32 | Emergency (ER) | payer OTHER ==
[2022-01-28 23:41] VITALS: BP 130/83; PULSE 116; RESP 20; TEMP 98.8; BMI 30.9
[2022-01-29 01:41] LABS: EPI CELLS 30 /uL (0-25.1); HYALINE CASTS 9 /uL (0-3.1); URINE APPEARANCE CLOUDY; URINE BACTERIA >9,000 /uL (0-1359); URINE BILIRUBIN NEGATIVE (NEGATIVE); URINE COLOR YELLOW; URINE GLUCOSE (UA) NEGATIVE (NEGATIVE); URINE KETONE NEGATIVE (NEGATIVE); URINE LEUK ESTERASE 2+ (NEGATIVE); URINE NITRITE POSITIVE (NEGATIVE); URINE PROTEIN NEGATIVE (NEGATIVE); URINE RBC 39 /uL (0-23.9); URINE UROBILINOGEN 0.2 mg/dL (0.2-1.0); URINE WBC 405 /uL (0-25.8)
[2022-01-29] MEDS ORDERED: CEPHALEXIN MONOHYDRATE 500 MG CAPSULE (UD) PO ONE (01:56)
[2022-01-29] MEDS ORDERED: CEPHALEXIN MONOHYDRATE 500 MG CAPSULE (UD) ONE (02:23)
== END 2022-01-29 05:39 | disposition home or self-care (01) ==
LOC: JER 23:32
DX: U07.1 COVID-19 (principal); N30.01 Acute cystitis with hematuria
CPT/HCPCS: 0241U-QW; 81003; 84703; 87086; 87186; 99283-25

== ENCOUNTER 2022-04-14 10:13 | Emergency (ER) | payer OTHER ==
[2022-04-14 10:21] VITALS: BP 123/78; PULSE 101; RESP 20; TEMP 98; BMI 32.0
[2022-04-14] MEDS ORDERED: KETOROLAC TROMETHAMINE 30 MG/1 ML VIAL IM ONE (10:42)
[2022-04-14] MEDS ORDERED: KETOROLAC TROMETHAMINE 30 MG/1 ML VIAL ONE (10:55)
[2022-04-14 11:12] LABS: EOS % 4.9 % (0-4.5); HEMATOCRIT 43.3 % (32.4-45.2); HEMOGLOBIN 14.2 GM/dL (10.7-15.3); LYMPH % 23.5 % (8-40); MCH 29.4 pg (25.7-33.7); MCHC 32.8 g/dl (32.0-36.0); MEAN CELL VOLUME 89.6 fl (80-96); MEAN PLT VOLUME 9.4 fl (7.5-11.1); MONO % 6.9 % (3.8-10.2); NEUT % 63.7 % (42.8-82.8); PLATELET COUNT 291 10^3/uL (134-434); RBC 4.84 M/mm3 (3.60-5.2); RDW 13.8 % (11.6-15.6); WHITE BLOOD COUNT 12.5 K/mm3 (4.0-10.0)
[2022-04-14 11:14] LABS: EPI CELLS >36 /uL (0-25.1); HCG,QUALITATIVE URINE Negative; HYALINE CASTS 12 /uL (0-3.1); PH,URINE 5.5 (5.0-8.0); URINE APPEARANCE TURBID; URINE BACTERIA >9,000 /uL (0-1359); URINE BILIRUBIN NEGATIVE (NEGATIVE); URINE COLOR YELLOW; URINE GLUCOSE (UA) NEGATIVE (NEGATIVE); URINE KETONE NEGATIVE (NEGATIVE); URINE LEUK ESTERASE 2+ (NEGATIVE); URINE NITRITE POSITIVE (NEGATIVE); URINE PROTEIN 1+ (NEGATIVE); URINE RBC 40 /uL (0-23.9); URINE UROBILINOGEN 0.2 mg/dL (0.2-1.0); URINE WBC 1999 /uL (0-25.8)
[2022-04-14 11:30] LABS: ALBUMIN 3.6 g/dl (3.4-5.0); BLOOD UREA NITROGEN 14.4 mg/dL (7-18); CALCIUM 9.1 mg/dL (8.5-10.1)
[2022-04-14 11:32] LABS: CREATININE 0.7 mg/dL (0.55-1.3)
[2022-04-14 11:35] LABS: BILIRUBIN,TOTAL 0.2 mg/dL (0.2-1)
[2022-04-14 11:37] LABS: YEAST NEGATIVE (NEGATIVE)
== END 2022-04-14 13:11 | disposition home or self-care (01) ==
LOC: JER 10:13
PROC: 3E0233Z Introduction of Anti-inflammatory into Muscle, Percutaneous Approach (ICD-10-PCS; principal; 2022-04-14)
DX: N30.00 Acute cystitis without hematuria (principal); N83.201 Unspecified ovarian cyst, right side
CPT/HCPCS: 36415; 76830-TC; 80053; 81003; 83690; 84703; 85025; 87086; 87186; 87491; 87591; 99284-25